=== PATIENT | female | born 1940 | race Caucasian/White ===

== ENCOUNTER → 2016-04-08 | Outpatient (CLI) | payer BC ==
[~2016-04-08] MED LIST: ACET-1311 PO; AMLO-114 PO; ATEN-175 PO; CLXOPS3 OPL; DONE1TAB26 PO; DONE5TAB14 PO; DTRSR/2 PO; ESCI10TA17 PO; GLC500 PO; HYDR25TA4 PO; INSDGIPEN SC; IPRASOL4 INH; LOSA1TAB PO; LVQ750 PO; MULT-506 PO; OXYC1CAP5 PO; SIMV10TA2 PO; TOLT4CAP PO; VITA400C28 PO
[2016-04-08 10:15] LABS: ESTIMATED AVERAGE GLUCOSE 163 mg/dl; HA1C FLAG Normal (Normal)
== END ==
LOC: C.LABCC 09:40
PROVIDERS: ATTEND Internal Medicine
DX: E11.9 Type 2 diabetes mellitus without complications (principal)

== ENCOUNTER 2016-09-11 21:49 | Inpatient (IN) | payer BC, OTHER ==
[~2016-09-11] VITALS: Ht 172.7 cm; Wt 90.3 kg
[~2016-09-11 21:49] MED LIST changes: -CLXOPS3 OPL; -DONE1TAB26 PO; -DTRSR/2 PO; -GLC500 PO; -INSDGIPEN SC; -IPRASOL4 INH; -LVQ750 PO; -OXYC1CAP5 PO
[2016-09-11] MEDS ORDERED: IPRASOL4 INH (21:59)
[2016-09-11] MEDS ORDERED: OXYC1CAP5 PO (22:04)
[2016-09-11] MEDS ORDERED: DONE1TAB26 PO (22:08)
[2016-09-11] MEDS ORDERED: DTRSR/2 PO (22:11)
[2016-09-11] MEDS ORDERED: ALBUT/IPRATROP 3MG/0.5MG NEB 3 ML VIAL INH STA (22:17)
[2016-09-11] MEDS ORDERED: OPTIRAY 320 IV PRN (22:30)
[2016-09-11 22:37] LABS: ISTAT CREATININE 1.2 mg/dl (0.6-1.3); ISTAT HEMOGLOBIN 11.6 g/dl (12.0-16.0); ISTAT IONIZED CALCIUM 1.16 mmol/l (1.12-1.32)
[2016-09-11 22:41] LABS: HEMATOCRIT 35.9 % (37-47); MEAN CELL VOLUME 92.5 fL (80-100); MEAN CORPUSCULAR HEMOGLOBIN 30.2 pg (25-34); MEAN CORPUSCULAR HGB CONC 32.6 g/dl (32-36); MEAN PLATELET VOLUME 11.3 fL (7.4-10.4); PLATELET COUNT 175 K/uL (130-400); RED BLOOD COUNT 3.88 M/uL (4.2-5.4); WHITE BLOOD COUNT 15.94 K/uL (4.8-10.8)
--- NOTE | 2016-09-11 22:56 | DIAGNOSTIC IMAGING REPORT ---
CHEST ONE VIEW PORTABLE CLINICAL HISTORY: Shortness of breath. Sepsis COMPARISON STUDY: Chest radiograph February 08, 2013. FINDINGS: There is no pneumothorax or pleural effusion. There is mild left basilar opacity. There is no evidence of pulmonary edema. Moderate enlargement of the cardiac silhouette is noted. IMPRESSION: 1. Mild left basilar opacities which favor atelectasis. 2. Mild enlargement of the cardiac silhouette without evidence of pulmonary edema. Electronically signed by: Vinay Mosher M.D. 09/11/2016 10:55 PM Dictated Date/Time: 09/11/2016 10:53 PM
[2016-09-11 23:03] LABS: ALT/SGPT 29 U/L (12-78); AST/SGOT 31 U/L (15-37); BLOOD UREA NITROGEN 39 mg/dl (7-18); BUN/CREATININE RATIO 25.9 (10-20); CALCIUM 8.6 mg/dl (8.5-10.1); CARBON DIOXIDE 27 mmol/L (21-32); CHLORIDE 104 mmol/L (98-107); MAGNESIUM 2.4 mg/dl (1.8-2.4); POTASSIUM 4.4 mmol/L (3.5-5.1); SODIUM 139 mmol/L (136-145)
[2016-09-11 23:04] LABS: GLUCOSE 463 mg/dl (70-99)
[2016-09-11 23:07] LABS: ALB/GLOB RATIO 0.8 (0.9-2); ALKALINE PHOSPHATASE 102 U/L (45-117)
--- NOTE | 2016-09-11 23:10 | DIAGNOSTIC IMAGING REPORT ---
CT ANGIOGRAPHY OF THE CHEST, PULMONARY EMBOLUS PROTOCOL CLINICAL HISTORY: Shortness of breath. Hypoxia. Recent leg fracture. History of deep venous thrombus. COMPARISON STUDY: Chest radiograph February 08, 2013 and September 11, 2016. TECHNIQUE: Following IV administration of 116 mL of Optiray-320, helical axial images of the chest were obtained utilizing the pulmonary embolus protocol. Maximal intensity projections and sagittal and coronal reformats were viewed on an independent 3D workstation. IV contrast was administered without complication. CT DOSE: 512.36 mGy.cm FINDINGS: This exam is significantly compromised by respiratory motion. There are no central pulmonary emboli. The lobar, segmental and subsegmental pulmonary arteries are inadequately assessed due to respiratory motion. The heart is mildly enlarged. There is extensive coronary artery calcification. Note is made of an aberrant right subclavian artery. There is mild aneurysmal dilatation of the proximal right subclavian artery, measuring 2.3 cm. There is extensive atherosclerotic plaque within this vessel as well as the thoracic aorta. There is no thoracic aortic dissection. There is no pericardial effusion. No enlarged thoracic lymph nodes are present. Central airways are patent. Bilateral lower lobe subpleural opacities favor atelectasis. There is no consolidation to suggest pneumonia. The lungs are suboptimally assessed due to respiratory motion. Bony thorax is unremarkable. There is probable fatty infiltration of the liver. IMPRESSION: 1. Study significantly compromised by respiratory motion artifact. No central pulmonary emboli. The lobar, segmental and subsegmental pulmonary arteries are suboptimally assessed due to respiratory motion. 2. Mild cardiomegaly and extensive coronary artery calcification. 3. 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 No rupture. No dissection of the thoracic aorta. 4. Bilateral lower lobe opacities which favor atelectasis. 5. Fatty liver. Electronically signed by: Vinay Mosher M.D. 09/11/2016 11:09 PM Dictated Date/Time: 09/11/2016 11:00 PM
[2016-09-11] MEDS ORDERED: LEVAQUIN 750MG / 150ML D5W IV STA (23:16)
[2016-09-11] MEDS ORDERED: CEFTRIAXONE SOD INJ 1 GM ADDVIAL IV STA (23:16)
[2016-09-11] MEDS ORDERED: NovoLIN-R INSULIN PER UNIT CHARGE IV STA (23:16)
[2016-09-11] MEDS ORDERED: SODIUM CHLORIDE 0.9% 1000ML 1,000 ML IV STA ×2 (23:16)
[2016-09-11 23:25] LABS: BASO % 0.3 %; BASO ABS # 0.05 K/uL (0-0.2); COMPLETE YES; EOS % 0.9 %; IG% 0.8 %; LYMPH % 37.7 %; LYMPH ABS # 6.01 K/uL (1.2-3.4); MONO % 6.9 %; NEUT % 53.4 %
[2016-09-11 23:27] LABS: BETA-HYDROXYBUTYRATE 1.26 mg/dL (0.2-2.81); THYROID STIMULATING HORMONE 0.754 uIu/ml (0.300-4.500)
[2016-09-11 23:29] LABS: VEN BLD GAS O2 SATURATION 90.5 %; VEN BLOOD GAS BASE EXCESS -3.5 mmol/L
[2016-09-11 23:36] LABS: INR 1.1 (0.9-1.1); PROTHROMBIN TIME (PATIENT) 11.3 SECONDS (9.0-12.0)
--- NOTE | 2016-09-11 23:40 | EMERGENCY ROOM VISIT NOTE ---
ED Visit Note First contact with patient: 22:09 Pt seen and examined at bedside. Pt with dementia, unable to provide adequate history. Pt receiving breathing tx currently and resting. VS stable. Pt being admitted.
[2016-09-12] VITALS (7 sets, daily range): BP systolic 120–154; BP diastolic 67–82; PULSE 61–70; TEMP 36.6–37.3; O2SAT 91–95; Ht 172.7 cm; Wt 90.3 kg
[2016-09-12 01:56] LABS: URINE APPEARANCE CLEAR (CLEAR); URINE BILIRUBIN NEG (NEG); URINE COLOR YELLOW; URINE NITRITE POS (NEG); URINE SPECIFIC GRAVITY > 1.045 (1.000-1.030); UROBILINOGEN NEG (NEG); ZZURINE CULT IF INDIC CATH YES
[2016-09-12 01:57] LABS: MANUAL MICROSCOPIC REQUIRED? NO; REVIEW REQ? NO
--- NOTE | 2016-09-12 02:43 | EMERGENCY ROOM VISIT NOTE ---
History First contact with patient: 22:09 Chief Complaint: SHORTNESS OF BREATH Stated Complaint: SOB Nursing Triage Summary: See triage report History of Present Illness The patient is a 75 year old female who presents to the Emergency Room with complaints of shortness of breath with cough and fatigue for the past day who is currently at [facility] for rehabilitation for a left lower leg fracture. This happened 4 days ago. Patient does continue to smoke. Patient stats today at the [facility] were in the mid 80s and was sent in for further evaluation and treatment. Her blood sugar was 500 and they gave insulin. They did not check her potassium though. Patient denies chest pain, abdominal pain, numbness , tingling, headache, vomiting, diarrhea. Review of Systems See HPI for pertinent positives & negatives. A total of 10 systems reviewed and were otherwise negative. Past Medical/Surgical History Medical Problems: (1) Amputated above knee (2) Diabetes mellitus (3) History of - hypertension (4) Pneumonia Chronic kidney disease Social History Smoking Status: Current Every Day Smoker Drug Use: none Marital Status: Housing Status: [facility] Occupation Status: retired Current/Historical Medications Scheduled Amlodipine (Norvasc), 10 MG PO DAILY Atenolol (Tenormin), 100 MG PO DAILY Donepezil Hydrochloride (Donepezil Hcl), 10 MG PO HS Escitalopram (Lexapro), 10 MG PO DAILY Losartan Potassium (Cozaar), 25 MG PO BID Multivitamin (Multivitamin), 1 TAB PO DAILY Simvastatin (Zocor), 10 MG PO HS Tolterodine Tartrate (Detrol LA), 6 MG PO DAILY Scheduled PRN Acetaminophen (Tylenol), 650 MG PO Q6H PRN for Pain or Fever Ipratropium-Albuterol (Duoneb), 1 TREATMENT INH Q4H PRN for Wheezing Oxycodone Hcl (Oxycodone Hcl), 5 MG PO Q4H PRN for Pain Allergies Coded Allergies: Chicken Allergy (Unverified Allergy, Unknown, ., 09/11/16) Sheep-derived Products (Unverified Adverse Reaction, Unknown, WOOL, ) Physical Exam Vital Signs Date Time Temp Pulse Resp B/P (MAP) Pulse Ox O2 Delivery O2 Flow Rate FiO2 09/12/16 03:16 37.6 09/12/16 02:49 65 21 94 09/12/16 02:34 63 19 93 09/12/16 02:19 64 17 94 09/12/16 02:12 65 09/12/16 02:04 64 15 93 09/12/16 01:49 65 23 93 09/12/16 01:34 66 20 94 09/12/16 01:19 65 13 94 09/12/16 01:04 66 16 92 09/12/16 01:01 130/64 09/12/16 00:49 66 17 92 09/12/16 00:34 67 14 93 09/12/16 00:31 123/71 09/12/16 00:19 66 15 94 09/12/16 00:04 64 16 94 09/12/16 00:01 127/73 09/11/16 23:49 66 16 98 09/11/16 23:34 65 26 98 09/11/16 23:32 124/87 09/11/16 23:19 65 24 98 09/11/16 23:04 64 25 99 09/11/16 23:01 125/78 09/11/16 22:49 66 23 95 09/11/16 22:34 62 31 95 09/11/16 22:31 145/70 09/11/16 22:19 63 20 94 Nasal Cannula 3.0 09/11/16 22:13 136/65 09/11/16 22:09 65 09/11/16 22:07 94 Nasal Cannula 2.0 09/11/16 22:03 3.0 09/11/16 21:58 140/64 09/11/16 21:57 91 Nasal Cannula 09/11/16 21:57 37.0 64 22 140/64 91 Room Air Physical Exam VITALS: Vitals are noted on the nurse's note and reviewed by myself. Vital signs hypoxic. GENERAL: Pleasant female answering questions appropriately, in no acute distress , nondiaphoretic, well-developed well-nourished. SKIN: The skin was without rashes, erythema, edema, or bruising. There is no tenting of the skin. Capillary reflex less than 2 seconds. HEAD: Normocephalic atraumatic. EARS: External auditory canals clear, tympanic membranes pearly esteban without erythema or effusion bilaterally. EYES: Pupils equal round and reactive to light and accommodation. Conjunctivae without injection, sclerae without icterus. Extraocular movements intact. NOSE: Patent, turbinates without inflammation or discharge. MOUTH: Mucous membranes mildly dry. Pharynx without erythema or exudate. Uvula midline. Airway patent. Tongue does not deviate. NECK: Supple without nuchal rigidity. No lymphadenopathy. No thyromegaly. Cervical spine is nontender. No JVD. HEART: Regular rate and rhythm 2/6 murmur LUNGS: Mild diffuse end expiratory wheezes, without rales or rhonchi. No dullness to percussion. No retractions or accessory muscle use. ABDOMEN: Positive bowel sounds x 4. Normal tympanic percussion. Soft, nontender, without masses or organomegaly. Whitlock sign negative. No guarding or rebound tenderness. MUSCULOSKELETAL: No muscle atrophy, erythema, or edema noted. Right leg amputee. Left leg and splint. Pedal pulses +2 present NEURO: Patient was alert and oriented to person place Normal sensation to light and sharp touch. No focal neurological deficits. Medical Decision & Procedures Laboratory Results 09/11/16 21:33 Red Blood Count 3.88, Mean Corpuscular Volume 92.5, Mean Corpuscular Hemoglobin 30.2, Mean Corpuscular Hemoglobin Concent 32.6, Mean Platelet Volume 11.3, Neutrophils (%) (Auto) 53.4, Lymphocytes (%) (Auto) 37.7, Monocytes (%) (Auto) 6.9, Eosinophils (%) (Auto) 0.9, Basophils (%) (Auto) 0.3, Neutrophils # (Auto) 8.52, Lymphocytes # (Auto) 6.01, Monocytes # (Auto) 1.10, Eosinophils # (Auto) 0.14, Basophils # (Auto) 0.05 09/11/16 21:33 Test 09/11/16 21:33 09/11/16 22:22 09/11/16 22:52 09/11/16 23:07 White Blood Count 15.94 K/uL (4.8-10.8) Red Blood Count 3.88 M/uL (4.2-5.4) Hemoglobin 11.7 g/dL (12.0-16.0) Hematocrit 35.9 % (37-47) Mean Corpuscular Volume 92.5 fL (80-100) Mean Corpuscular Hemoglobin 30.2 pg (25-34) Mean Corpuscular Hemoglobin Concent 32.6 g/dl (32-36) Platelet Count 175 K/uL (130-400) Mean Platelet Volume 11.3 fL (7.4-10.4) Neutrophils (%) (Auto) 53.4 % Lymphocytes (%) (Auto) 37.7 % Monocytes (%) (Auto) 6.9 % Eosinophils (%) (Auto) 0.9 % Basophils (%) (Auto) 0.3 % Neutrophils # (Auto) 8.52 K/uL (1.4-6.5) Lymphocytes # (Auto) 6.01 K/uL (1.2-3.4) Monocytes # (Auto) 1.10 K/uL (0.11-0.59) Eosinophils # (Auto) 0.14 K/uL (0-0.5) Basophils # (Auto) 0.05 K/uL (0-0.2) RDW Standard Deviation 44.7 fL (36.4-46.3) RDW Coefficient of Variation 13.5 % (11.5-14.5) Immature Granulocyte % (Auto) 0.8 % Immature Granulocyte # (Auto) 0.12 K/uL (0.00-0.02) Red Blood Cell Morphology Unremarkable Est Creatinine Clear Calc Drug Dose 39.7 ml/min Estimated GFR () 39.1 Estimated GFR (Non- 33.7 BUN/Creatinine Ratio 25.9 (10-20) Calcium Level 8.6 mg/dl (8.5-10.1) Magnesium Level 2.4 mg/dl (1.8-2.4) Total Bilirubin 0.8 mg/dl (0.2-1) Aspartate Amino Transf (AST/SGOT) 31 U/L (15-37) Alanine Aminotransferase (ALT/SGPT) 29 U/L (12-78) Alkaline Phosphatase 102 U/L (45-117) Troponin I < 0.015 ng/ml (0-0.045) Total Protein 6.3 gm/dl (6.4-8.2) Albumin 2.8 gm/dl (3.4-5.0) Globulin 3.5 gm/dl (2.5-4.0) Albumin/Globulin Ratio 0.8 (0.9-2) Beta-Hydroxybutyric Acid 1.26 mg/dL (0.2-2.81) Thyroid Stimulating Hormone (TSH) 0.754 uIu/ml (0.300-4.500) Bedside Hemoglobin 11.6 g/dl (12.0-16.0) Bedside Hematocrit 34 % (37-47) Bedside Sodium 138 mEq/L (135-144) Bedside Potassium 4.5 mEq/L (3.3-5.0) Bedside Chloride 100 mEq/L (101-112) Bedside Total CO2 27 mEq/l (24-31) Anion Gap 16.0 mmol/L (16-25) Bedside Blood Urea Nitrogen 36 mg/dl (7-18) Bedside Creatinine 1.2 mg/dl (0.6-1.3) Bedside Glucose (other) 485 mg/dl (70-99) Bedside Ionized Calcium (Travis) 1.16 mmol/l (1.12-1.32) Prothrombin Time 11.3 SECONDS (9.0-12.0) Prothromb Time International Ratio 1.1 (0.9-1.1) Activated Partial Thromboplast Time 26.4 SECONDS (21.0-31.0) Partial Thromboplastin Ratio 1.0 Venous Blood pH 7.33 (7.36-7.41) Venous Blood Partial Pressure CO2 43 mmHg (38.0-50.0) Venous Blood Partial Pressure O2 63 mmHg Venous Blood HCO3 22 mmol/L Venous Blood Oxygen Saturation 90.5 % Venous Blood Base Excess -3.5 mmol/L Bedside Lactic Acid Venous 1.90 mmol/L (0.90-1.70) Test 09/12/16 00:31 09/12/16 01:30 Bedside Glucose 249 mg/dl (70-90) Urine Color YELLOW Urine Appearance CLEAR (CLEAR) Urine pH 5.0 (4.5-7.5) Urine Specific [place] > 1.045 (1.000-1.030) Urine Protein 1+ (NEG) Urine Glucose (UA) 1+ (NEG) Urine Ketones NEG (NEG) Urine Occult Blood 2+ (NEG) Urine Nitrite POS (NEG) Urine Bilirubin NEG (NEG) Urine Urobilinogen NEG (NEG) Urine Leukocyte Esterase TRACE (NEG) Urine WBC (Auto) 10-30 /hpf (0-5) Urine RBC (Auto) 0-4 /hpf (0-4) Urine Hyaline Casts (Auto) 0 /lpf (0-5) Urine Epithelial Cells (Auto) 5-10 /lpf (0-5) Urine Bacteria (Auto) 3+ (NEG) Medications Administered Medications (Trade) Dose Ordered Sig/Rodney Route Start Time Stop Time Status Last Admin Dose Admin Albuterol/ Ipratropium (Duoneb) 3 ml NOW STAT INH 09/11/16 22:17 09/11/16 22:18 DC 09/11/16 22:52 3 ML Ceftriaxone Sodium (Rocephin Inj) 1 gm NOW STAT IV 09/11/16 23:16 09/11/16 23:20 DC 09/11/16 23:57 1 GM Levofloxacin (Levaquin / D5W) 750 mg NOW STAT IV 09/11/16 23:16 09/11/16 23:20 DC 09/12/16 00:48 750 MG Insulin Human Regular (novoLIN-R U-100 PER UNIT) 10 units NOW STAT IV 09/11/16 23:16 09/11/16 23:20 DC 09/11/16 23:57 10 UNITS Sodium Chloride 1,000 ml @ 999 mls/hr Q1H1M STAT IV 09/11/16 23:16 09/12/16 00:16 DC 09/11/16 23:57 999 MLS/HR Sodium Chloride 1,000 ml @ 100 mls/hr Q10H STAT IV 09/11/16 23:16 09/12/16 09:15 09/11/16 23:58 100 MLS/HR ED Course Prior records/ancillary studies reviewed. Triage Nursing notes reviewed. Additional history obtained from the family. The patient's history was concerning for respiratory difficulties. Differential diagnosis: Etiologies such as infections, reactive airway disease, pneumonia, pneumothorax , COPD, CHF, cardiac ischemia, pulmonary embolism, musculoskeletal, gastrointestinal, as well as others were entertained. Physical examination: As above. ER treatment provided: Nebulizer, Rocephin, Levaquin, IV fluids, insulin On reassessment the patient felt better. Diagnostic interpretation by me: The electrocardiogram was normal sinus, normal intervals, T wave inversions in the anterolateral leads, rate 63. EKG compared to prior EKG with new T-wave inversions in the anterolateral leads interpreted by myself. Impression normal sinus with T-wave inversions in the anterolateral leads. The labs revealed leukocytosis, urine concerning for infection and sent for culture. Elevated lactic acid Imaging studies: Chest x-ray as above. CT ANGIOGRAPHY OF THE CHEST, PULMONARY EMBOLUS PROTOCOL CLINICAL HISTORY: Shortness of breath. Hypoxia. Recent leg fracture. History of deep venous thrombus. COMPARISON STUDY: Chest radiograph February 08, 2013 and September 11, 2016. TECHNIQUE: Following IV administration of 116 mL of Optiray-320, helical axial images of the chest were obtained utilizing the pulmonary embolus protocol. Maximal intensity projections and sagittal and coronal reformats were viewed on an independent 3D workstation. IV contrast was administered without complication. CT DOSE: 512.36 mGy.cm FINDINGS: This exam is significantly compromised by respiratory motion. There are no central pulmonary emboli. The lobar, segmental and subsegmental pulmonary arteries are inadequately assessed due to respiratory motion. The heart is mildly enlarged. There is extensive coronary artery calcification. Note is made of an aberrant right subclavian artery. There is mild aneurysmal dilatation of the proximal right subclavian artery, measuring 2.3 cm. There is extensive atherosclerotic plaque within this vessel as well as the thoracic aorta. There is no thoracic aortic dissection. There is no pericardial effusion. No enlarged thoracic lymph nodes are present. Central airways are patent. Bilateral lower lobe subpleural opacities favor atelectasis. There is no consolidation to suggest pneumonia. The lungs are suboptimally assessed due to respiratory motion. Bony thorax is unremarkable. There is probable fatty infiltration of the liver. IMPRESSION: 1. Study significantly compromised by respiratory motion artifact. No central pulmonary emboli. The lobar, segmental and subsegmental pulmonary arteries are suboptimally assessed due to respiratory motion. 2. Mild cardiomegaly and extensive coronary artery calcification. 3. 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 No rupture. No dissection of the thoracic aorta. 4. Bilateral lower lobe opacities which favor atelectasis. 5. Fatty liver. Electronically signed by: Vinay Mosher M.D. Consultation: A consultation was placed with Dr. Martínez hospitalist. The case was discussed and diagnostics were reviewed. The patient was evaluated in the ER for further treatment. This appears to be consistent with pneumonia with UTI with hypoxemia. Patient also has hyperglycemia with a normal gap. She was hydrated as above. Antibiotics were given. Blood glucose did improve. Family is agreeable to treatment plan of admission. Medicine was consulted. By the evaluation outlined above emergent etiologies such as CHF, cardiac ischemia, pulmonary embolism, pneumothorax, musculoskeletal, as well as others were deemed relatively unlikely. The pt informed about the findings as listed above. All questions were answered and pleased with the treatment. Case reviewed with my attending Medical Decision As above I attest that I have personally reviewed the patient's medications. Impression Primary Impression: Pneumonia Additional Impressions: UTI (urinary tract infection) Hypoxemia Hyperglycemia Departure Information Dispostion Being Evaluated By [facility] Patient Instructions My [facility] Problem Qualifiers Primary Impression: Pneumonia Pneumonia type: due to unspecified organism Laterality: unspecified laterality Lung location: unspecified part of lung Qualified Codes: J18.9 - Pneumonia, unspecified organism Additional Impressions: UTI (urinary tract infection) Urinary tract infection type: acute cystitis Hematuria presence: without hematuria Qualified Codes: N30.00 - Acute cystitis without hematuria
[2016-09-12] MEDS ORDERED: ONDANSETRON INJ 2 MG/ML 2 ML VIAL IV PRN (04:30)
[2016-09-12] MEDS ORDERED: ALUMINUM/MAGNESIUM/SIMETH (MAALOX MAX) 30 ML UDC PO PRN (04:30)
[2016-09-12] MEDS ORDERED: ACETAMINOPHEN 325 MG TAB PO PRN (04:30)
[2016-09-12] MEDS ORDERED: ALBUT/IPRATROP 3MG/0.5MG NEB 3 ML VIAL INH PRN (04:30)
[2016-09-12] MEDS: SODIUM CHLORIDE 0.9% 1000ML 1,000 ML IV SCH (05:19)
[2016-09-12 05:33] LABS: HEMATOCRIT 34.8 % (37-47); MEAN CELL VOLUME 93.3 fL (80-100); MEAN CORPUSCULAR HEMOGLOBIN 30.6 pg (25-34); MEAN CORPUSCULAR HGB CONC 32.8 g/dl (32-36); MEAN PLATELET VOLUME 10.5 fL (7.4-10.4); PLATELET COUNT 154 K/uL (130-400); RED BLOOD COUNT 3.73 M/uL (4.2-5.4); WHITE BLOOD COUNT 14.89 K/uL (4.8-10.8)
[2016-09-12 05:55] LABS: BUN/CREATININE RATIO 29.5 (10-20); CALCIUM 8.1 mg/dl (8.5-10.1); CREATININE 1.1 mg/dl (0.60-1.20); POTASSIUM 4.5 mmol/L (3.5-5.1)
--- NOTE | 2016-09-12 06:52 | History and Physical ---
History & Physical Date & Time of Service: Sep 12, 2016 at 06:44 Chief Complaint: Pneumonia Primary Care Physician: Iva Law History of Present Illness Source: patient 75-year-old female with past medical history of diabetes, hypertension, status post left lower leg fracture currently resident of [facility] presented to the ER with complaints of shortness of breath with cough and fatigue which started about a day ago. The patient is a current smoker and her sats had dropped to mid 80s while at [facility]. She was also found to be hyperglycemic with a blood sugar over 500. She denies any chest pain but complains of chills. Denies any fever. Denies any palpitations, numbness or tingling, motor weakness or diarrhea. Past Medical/Surgical History Medical Problems: (1) Amputated above knee Status: Resolved (2) Diabetes mellitus Status: Chronic (3) History of - hypertension Status: Chronic Social History Smoking Status: Current Every Day Smoker Drug Use: none Marital Status: Housing status: long term Occupational Status: retired Immunizations History of Influenza Vaccine: No History of Tetanus Vaccine?: Unknown History of Pneumococcal: No History of Hepatitis B Vaccine: Unknown Multi-Drug Resistant Organisms History of MDRO: Yes Type of MDRO: MRSA Allergies Coded Allergies: Chicken Allergy (Unverified Allergy, Unknown, ., 09/11/16) Sheep-derived Products (Unverified Adverse Reaction, Unknown, WOOL, ) Home Medications Scheduled Amlodipine (Norvasc), 10 MG PO DAILY Atenolol (Tenormin), 100 MG PO DAILY Ciprofloxacin HCl (Ciprofloxacin HCl), 1 DROPS OPL Q4HWA Donepezil Hydrochloride (Donepezil Hcl), 10 MG PO HS Escitalopram (Lexapro), 10 MG PO DAILY Insulin Glargine (Lantus Solostar), 15 UNITS SC DAILY Levofloxacin (Levofloxacin), 750 MG PO DAILY Losartan Potassium (Cozaar), 25 MG PO BID Metformin HCl (Metformin HCl), 500 MG PO BID Multivitamin (Multivitamin), 1 TAB PO DAILY Simvastatin (Zocor), 10 MG PO HS Tolterodine Tartrate (Detrol LA), 6 MG PO DAILY Scheduled PRN Acetaminophen (Tylenol), 650 MG PO Q6H PRN for Pain or Fever Ipratropium-Albuterol (Duoneb), 1 TREATMENT INH Q4H PRN for Wheezing Oxycodone Hcl (Oxycodone Hcl), 5 MG PO Q4H PRN for Pain Review of Systems Constitutional: + chills, + sweats, No fever Eyes: No worsening of vision ENT: No hearing loss Respiratory: + cough Cardiovascular: No chest pain Abdomen: No pain, No nausea Musculoskeletal: + joint pain (left lower extremity pain) Genitourinary - Female: No dysuria, No urinary frequency, No urinary urgency Neurologic: No memory loss Psychiatric: No depression symptoms Endocrine: No fatigue Physical Exam Vital Signs Date Time Temp Pulse Resp B/P (MAP) Pulse Ox O2 Delivery O2 Flow Rate FiO2 09/12/16 04:44 36.6 65 22 154/82 95 Nasal Cannula 4.0 09/12/16 04:04 64 28 94 09/12/16 04:01 143/74 09/12/16 03:54 64 25 94 09/12/16 03:44 63 15 93 09/12/16 03:39 64 22 94 09/12/16 03:31 138/68 09/12/16 03:24 64 21 94 09/12/16 03:16 37.6 09/12/16 03:15 146/72 09/12/16 03:09 65 14 94 09/12/16 02:54 65 16 93 09/12/16 02:49 65 21 94 09/12/16 02:34 63 19 93 09/12/16 02:19 64 17 94 09/12/16 02:12 65 09/12/16 02:04 64 15 93 09/12/16 01:49 65 23 93 09/12/16 01:34 66 20 94 09/12/16 01:19 65 13 94 09/12/16 01:04 66 16 92 09/12/16 01:01 130/64 09/12/16 00:49 66 17 92 09/12/16 00:34 67 14 93 09/12/16 00:31 123/71 09/12/16 00:19 66 15 94 09/12/16 00:04 64 16 94 09/12/16 00:01 127/73 09/11/16 23:49 66 16 98 09/11/16 23:34 65 26 98 09/11/16 23:32 124/87 09/11/16 23:19 65 24 98 09/11/16 23:04 64 25 99 09/11/16 23:01 125/78 09/11/16 22:49 66 23 95 09/11/16 22:34 62 31 95 09/11/16 22:31 145/70 09/11/16 22:19 63 20 94 Nasal Cannula 3.0 09/11/16 22:13 136/65 09/11/16 22:09 65 09/11/16 22:07 94 Nasal Cannula 2.0 09/11/16 22:03 3.0 09/11/16 21:58 140/64 09/11/16 21:57 91 Nasal Cannula 09/11/16 21:57 37.0 64 22 140/64 91 Room Air General Appearance: WD/WN Eyes: normal inspection ENT: normal ENT inspection, hearing grossly normal Neck: supple Respiratory/Chest: chest non-tender, + decreased breath sounds Cardiovascular: regular rate, rhythm Abdomen/GI: normal bowel sounds, non tender, soft Extremities/Musculoskelatal: normal inspection, no calf tenderness, no pedal edema Neurologic/Psych: alert, normal mood/affect, oriented x 3 Diagnostics Laboratory Results Results Past 24 Hours Test 09/11/16 21:33 09/11/16 22:19 09/11/16 22:22 09/11/16 22:52 Range/Units White Blood Count 15.94 4.8-10.8 K/uL Red Blood Count 3.88 4.2-5.4 M/uL Hemoglobin 11.7 12.0-16.0 g/dL Hematocrit 35.9 37-47 % Mean Corpuscular Volume 92.5 80-100 fL Mean Corpuscular Hemoglobin 30.2 25-34 pg Mean Corpuscular Hemoglobin Concent 32.6 32-36 g/dl Platelet Count 175 130-400 K/uL Mean Platelet Volume 11.3 7.4-10.4 fL Neutrophils (%) (Auto) 53.4 % Lymphocytes (%) (Auto) 37.7 % Monocytes (%) (Auto) 6.9 % Eosinophils (%) (Auto) 0.9 % Basophils (%) (Auto) 0.3 % Neutrophils # (Auto) 8.52 1.4-6.5 K/uL Lymphocytes # (Auto) 6.01 1.2-3.4 K/uL Monocytes # (Auto) 1.10 0.11-0.59 K/uL Eosinophils # (Auto) 0.14 0-0.5 K/uL Basophils # (Auto) 0.05 0-0.2 K/uL RDW Standard Deviation 44.7 36.4-46.3 fL RDW Coefficient of Variation 13.5 11.5-14.5 % Immature Granulocyte % (Auto) 0.8 % Immature Granulocyte # (Auto) 0.12 0.00-0.02 K/uL Red Blood Cell Morphology Unremarkable Sodium Level 139 136-145 mmol/L Potassium Level 4.4 3.5-5.1 mmol/L Chloride Level 104 98-107 mmol/L Carbon Dioxide Level 27 21-32 mmol/L Anion Gap 8.0 16.0 16-25 mmol/L Blood Urea Nitrogen 39 7-18 mg/dl Creatinine 1.50 0.60-1.20 mg/dl Est Creatinine Clear Calc Drug Dose 39.7 ml/min Estimated GFR () 39.1 Estimated GFR (Non- 33.7 BUN/Creatinine Ratio 25.9 10-20 Random Glucose 463 70-99 mg/dl Calcium Level 8.6 8.5-10.1 mg/dl Magnesium Level 2.4 1.8-2.4 mg/dl Total Bilirubin 0.8 0.2-1 mg/dl Aspartate Amino Transf (AST/SGOT) 31 15-37 U/L Alanine Aminotransferase (ALT/SGPT) 29 12-78 U/L Alkaline Phosphatase 102 45-117 U/L Troponin I < 0.015 0-0.045 ng/ml Total Protein 6.3 6.4-8.2 gm/dl Albumin 2.8 3.4-5.0 gm/dl Globulin 3.5 2.5-4.0 gm/dl Albumin/Globulin Ratio 0.8 0.9-2 Beta-Hydroxybutyric Acid 1.26 0.2-2.81 mg/dL Thyroid Stimulating Hormone (TSH) 0.754 0.300-4.500 uIu/ml Bedside Glucose 421 70-90 mg/dl Bedside Hemoglobin 11.6 12.0-16.0 g/dl Bedside Hematocrit 34 37-47 % Bedside Sodium 138 135-144 mEq/L Bedside Potassium 4.5 3.3-5.0 mEq/L Bedside Chloride 100 101-112 mEq/L Bedside Total CO2 27 24-31 mEq/l Bedside Blood Urea Nitrogen 36 7-18 mg/dl Bedside Creatinine 1.2 0.6-1.3 mg/dl Bedside Glucose (other) 485 70-99 mg/dl Bedside Ionized Calcium (Travis) 1.16 1.12-1.32 mmol/l Prothrombin Time 11.3 9.0-12.0 SECONDS Prothromb Time International Ratio 1.1 0.9-1.1 Activated Partial Thromboplast Time 26.4 21.0-31.0 SECONDS Partial Thromboplastin Ratio 1.0 Venous Blood pH 7.33 7.36-7.41 Venous Blood Partial Pressure CO2 43 38.0-50.0 mmHg Venous Blood Partial Pressure O2 63 mmHg Venous Blood HCO3 22 mmol/L Venous Blood Oxygen Saturation 90.5 % Venous Blood Base Excess -3.5 mmol/L Test 09/11/16 23:07 09/12/16 00:31 09/12/16 01:30 09/12/16 03:58 Range/Units Bedside Lactic Acid Venous 1.90 0.90-1.70 mmol/L Bedside Glucose 249 196 70-90 mg/dl Urine Color YELLOW Urine Appearance CLEAR CLEAR Urine pH 5.0 4.5-7.5 Urine Specific [place] > 1.045 1.000-1.030 Urine Protein 1+ NEG Urine Glucose (UA) 1+ NEG Urine Ketones NEG NEG Urine Occult Blood 2+ NEG Urine Nitrite POS NEG Urine Bilirubin NEG NEG Urine Urobilinogen NEG NEG Urine Leukocyte Esterase TRACE NEG Urine WBC (Auto) 10-30 0-5 /hpf Urine RBC (Auto) 0-4 0-4 /hpf Urine Hyaline Casts (Auto) 0 0-5 /lpf Urine Epithelial Cells (Auto) 5-10 0-5 /lpf Urine Bacteria (Auto) 3+ NEG Test 09/12/16 05:20 Range/Units White Blood Count 14.89 4.8-10.8 K/uL Red Blood Count 3.73 4.2-5.4 M/uL Hemoglobin 11.4 12.0-16.0 g/dL Hematocrit 34.8 37-47 % Mean Corpuscular Volume 93.3 80-100 fL Mean Corpuscular Hemoglobin 30.6 25-34 pg Mean Corpuscular Hemoglobin Concent 32.8 32-36 g/dl RDW Standard Deviation 45.4 36.4-46.3 fL RDW Coefficient of Variation 13.3 11.5-14.5 % Platelet Count 154 130-400 K/uL Mean Platelet Volume 10.5 7.4-10.4 fL Sodium Level 143 136-145 mmol/L Potassium Level 4.5 3.5-5.1 mmol/L Chloride Level 110 98-107 mmol/L Carbon Dioxide Level 29 21-32 mmol/L Anion Gap 4.0 3-11 mmol/L Blood Urea Nitrogen 32 7-18 mg/dl Creatinine 1.10 0.60-1.20 mg/dl Est Creatinine Clear Calc Drug Dose 51.7 ml/min Estimated GFR () 56.9 Estimated GFR (Non- 49.1 BUN/Creatinine Ratio 29.5 10-20 Random Glucose 216 70-99 mg/dl Calcium Level 8.1 8.5-10.1 mg/dl Microbiology Results 09/11/16 Blood Culture, Received Pending 09/11/16 Blood Culture, Received Pending 09/12/16 Urine Culture, Received Pending Diagnostic Radiology CHEST ONE VIEW PORTABLE CLINICAL HISTORY: Shortness of breath. Sepsis COMPARISON STUDY: Chest radiograph February 08, 2013. FINDINGS: There is no pneumothorax or pleural effusion. There is mild left basilar opacity. There is no evidence of pulmonary edema. Moderate enlargement of the cardiac silhouette is noted. IMPRESSION: 1. Mild left basilar opacities which favor atelectasis. 2. Mild enlargement of the cardiac silhouette without evidence of pulmonary edema. Electronically signed by: Vinay Mosher M.D. 09/11/2016 10:55 PM Dictated Date/Time: 09/11/2016 10:[address] ANGIOGRAPHY OF THE CHEST, PULMONARY EMBOLUS PROTOCOL CLINICAL HISTORY: Shortness of breath. Hypoxia. Recent leg fracture. History of deep venous thrombus. COMPARISON STUDY: Chest radiograph February 08, 2013 and September 11, 2016. TECHNIQUE: Following IV administration of 116 mL of Optiray-320, helical axial images of the chest were obtained utilizing the pulmonary embolus protocol. Maximal intensity projections and sagittal and coronal reformats were viewed on an independent 3D workstation. IV contrast was administered without complication. CT DOSE: 512.36 mGy.cm FINDINGS: This exam is significantly compromised by respiratory motion. There are no central pulmonary emboli. The lobar, segmental and subsegmental pulmonary arteries are inadequately assessed due to respiratory motion. The heart is mildly enlarged. There is extensive coronary artery calcification. Note is made of an aberrant right subclavian artery. There is mild aneurysmal dilatation of the proximal right subclavian artery, measuring 2.3 cm. There is extensive atherosclerotic plaque within this vessel as well as the thoracic aorta. There is no thoracic aortic dissection. There is no pericardial effusion. No enlarged thoracic lymph nodes are present. Central airways are patent. Bilateral lower lobe subpleural opacities favor atelectasis. There is no consolidation to suggest pneumonia. The lungs are suboptimally assessed due to respiratory motion. Bony thorax is unremarkable. There is probable fatty infiltration of the liver. IMPRESSION: 1. Study significantly compromised by respiratory motion artifact. No central pulmonary emboli. The lobar, segmental and subsegmental pulmonary arteries are suboptimally assessed due to respiratory motion. 2. Mild cardiomegaly and extensive coronary artery calcification. 3. 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 No rupture. No dissection of the thoracic aorta. 4. Bilateral lower lobe opacities which favor atelectasis. 5. Fatty liver. Electronically signed by: Vinay Mosher M.D. 09/11/2016 11:09 PM Dictated Date/Time: 09/11/2016 11:00 PM Impression Assessment and Plan 75-year-old female with past medical history of diabetes, hypertension, status post left lower leg fracture currently resident of [facility] presented to the ER with complaints of shortness of breath with cough and fatigue which started about a day ago. Respiratory distress: CXR: 1. Mild left basilar opacities which favor atelectasis. 2. Mild enlargement of the cardiac silhouette without evidence of pulmonary edema. - CTA chest negative for pulmonary embolism - Vancomycin and Zosyn for pneumonia - DuoNeb's as needed Acute kidney injury: Has a history of stage III kidney disease Likely secondary to volume depletion -Creatinine at 1.5 - Continue IV fluids and monitor creatinine Hyperglycemia: History of diabetes which is diet controlled - Blood glucose on arrival 463 - On sliding scale - Hemoglobin A1c ordered Left tib-fib fracture - She was seen by orthopedics , was recommended to use a brace and follow-up as an outpatient in one week - She is unsure which group she saw, will need info from [facility] in AM - Pain control - PT/OT Urinary tract infection: - UA positive for 3+ bacteria, nitrite and WBC with trace leuk esterase -Urine culture pending - Continue on vancomycin and Zosyn Hypertension : - continue amlodipine and atenolol, losartan Dementia: -Continue diltiazem Depression/anxiety: - Continue Lexapro DO NOT RESUSCITATE disp: admitted to tele Attending Addendum: I physically seen and examined this patient, have supervised the medical residents activities, and agree with the H&P as noted above with the following exceptions: NONE The patient is awake, well-developed and adequately nourished, alert and oriented 3, normocephalic and atraumatic, lying in bed and in no acute distress. HEENT--PERRL, EOMI, mucous membranes and oropharynx dry. Neck--supple, no JVD or bruits, thyroid normal, trachea midline, no adenopathy. Heart--normal S1 and S2, no extra beats, no murmurs, rubs or gallops. Lungs--decreased breath sounds left base, no respiratory distress, no accessory muscle use. Abdomen--normal bowel sounds and soft, nontender and nondistended, no hernias or masses, no organomegaly. Extremities--no cyanosis, clubbing or edema. There are good distal pulses b/l. Dermatologic--normal skin turgor, normal color, warm and dry, no abnormal lymph nodes, no rash. Neurologic--cranial nerves II through XII grossly intact. Rheumatologic--normal range of motion. Psychiatric--normal affect. Assessment and Plan: 1. Left lower lobe pneumonia--admit to telemetry for close oxygen monitoring. Place on vancomycin IV per renal dosing, and Zosyn 3.375 mg IV every 8 hours. Duonebs every 4 hours while awake and every 2 hours when necessary. Nasal cannula 2 L of oxygen, titrated to keep pulse ox greater than or equal to 92%. Level of Care Telemetry Advanced Directives Existing Living Will: No Existing Power of Rn Transport: No Resuscitation Status DO NOT RESUSCITATE VTE Prophylaxis VTE Risk Assessment Done? Y/N: Yes Risk Level: Moderate Resident Tracking Resident Involvement: Resident Care Provided Care Provided: Adult Hospital Medicine
[2016-09-12] MEDS ORDERED: PIPERACILL/TAZOBAC IV 3.375 GM in DEXTROSE 5% 100ML IV ONE (07:00)
[2016-09-12] MEDS ORDERED: VANCOMYCIN CONSULT ACTIVE PRN (07:15)
[2016-09-12] MEDS ORDERED: PIPERACILL/TAZOBAC CONSULT ACTIVE PRN (07:15)
[2016-09-12] MEDS: OXYCODONE HCL IR 5 MG TAB (IMMEDIATE RELEASE) PO PRN ×4 (07:48→22:19)
[2016-09-12] MEDS: POLYETHYLENE (MIRALAX) 17 GM PACK PO PRN (07:48)
[2016-09-12] MEDS: MULTIVITAMIN TAB PO SCH (07:49)
[2016-09-12] MEDS: LOSARTAN POTASSIUM 25 MG TAB PO SCH ×2 (07:49→20:48)
[2016-09-12] MEDS: TOLTERODINE TARTRATE LA 2 MG CAPCR PO SCH (07:50)
[2016-09-12] MEDS: AMLODIPINE BESYLATE 5 MG TAB PO SCH (07:50)
[2016-09-12] MEDS: ESCITALOPRAM OXALATE 10 MG TAB PO SCH (07:50)
[2016-09-12] MEDS ORDERED: VANCOMYCIN INJ 2,200 MG in SODIUM CHLORIDE 0.9% 500ML 500 ML IV SCH (08:00)
[2016-09-12] MEDS ORDERED: VANCOMYCIN INJ 1,000 MG in SODIUM CHLORIDE 0.9% 250ML 250 ML IV SCH (09:00)
[2016-09-12 09:07] LABS: ESTIMATED AVERAGE GLUCOSE 217 mg/dl; HA1C FLAG Normal (Normal)
--- NOTE | 2016-09-12 10:30 | Pharmacy Progress Note ---
Pharmacy Abx Initial Consult Date of Service Sep 12, 2016. Pharmacy Dosing Scope Date of Consult: 09/12/16 Consultation requested by: Dr. Ford Pharmacy is consulted to initiate Vancomycin and Zosyn IV dosing therapy, order appropriate labs and adjust drug dose/frequency. Subjective The patient is a 75 year old female admitted on Sep 12, 2016 at 02:02. Objective Height (Feet): 5 Height (Inches): 8.00 Weight (Kilograms): 89.500 Vital Signs (Past 12Hrs) Vital Signs Past 12 Hours Date Time Temp Pulse Resp B/P (MAP) Pulse Ox O2 Delivery O2 Flow Rate FiO2 09/12/16 07:31 36.7 70 22 148/82 (104) 92 Nasal Cannula 3.0 09/12/16 04:44 36.6 65 22 154/82 95 Nasal Cannula 4.0 09/12/16 04:04 64 28 94 09/12/16 04:01 143/74 09/12/16 03:54 64 25 94 09/12/16 03:44 63 15 93 09/12/16 03:39 64 22 94 09/12/16 03:31 138/68 09/12/16 03:24 64 21 94 09/12/16 03:16 37.6 09/12/16 03:15 146/72 09/12/16 03:09 65 14 94 09/12/16 02:54 65 16 93 09/12/16 02:49 65 21 94 09/12/16 02:34 63 19 93 09/12/16 02:19 64 17 94 09/12/16 02:12 65 09/12/16 02:04 64 15 93 09/12/16 01:49 65 23 93 09/12/16 01:34 66 20 94 09/12/16 01:19 65 13 94 09/12/16 01:04 66 16 92 09/12/16 01:01 130/64 09/12/16 00:49 66 17 92 09/12/16 00:34 67 14 93 09/12/16 00:31 123/71 09/12/16 00:19 66 15 94 09/12/16 00:04 64 16 94 09/12/16 00:01 127/73 09/11/16 23:49 66 16 98 09/11/16 23:34 65 26 98 09/11/16 23:32 124/87 09/11/16 23:19 65 24 98 09/11/16 23:04 64 25 99 09/11/16 23:01 125/78 09/11/16 22:49 66 23 95 09/11/16 22:34 62 31 95 09/11/16 22:31 145/70 Lab Results (24Hrs) Laboratory Tests (24 Hours) Item Value Date Time Creatinine 1.10 mg/dl # 09/12/16 05 Est Creatinine Clear Calc Drug Dose 51.7 ml/min 09/12/16519 Creatinine 1.50 mg/dl H 09/11/162132 Est Creatinine Clear Calc Drug Dose 39.7 ml/min 09/11/162132 Test 09/11/16 21:33 09/12/16 05:20 White Blood Count 15.94 K/uL (4.8-10.8) H 14.89 K/uL (4.8-10.8) H Red Blood Count 3.88 M/uL (4.2-5.4) L Hemoglobin 11.7 g/dL (12.0-16.0) L Hematocrit 35.9 % (37-47) L Mean Corpuscular Volume 92.5 fL (80-100) Mean Corpuscular Hemoglobin 30.2 pg (25-34) Mean Corpuscular Hemoglobin Concent 32.6 g/dl (32-36) Platelet Count 175 K/uL (130-400) Mean Platelet Volume 11.3 fL (7.4-10.4) H Neutrophils (%) (Auto) 53.4 % Lymphocytes (%) (Auto) 37.7 % Monocytes (%) (Auto) 6.9 % Eosinophils (%) (Auto) 0.9 % Basophils (%) (Auto) 0.3 % Neutrophils # (Auto) 8.52 K/uL (1.4-6.5) H Lymphocytes # (Auto) 6.01 K/uL (1.2-3.4) H Monocytes # (Auto) 1.10 K/uL (0.11-0.59) H Eosinophils # (Auto) 0.14 K/uL (0-0.5) Basophils # (Auto) 0.05 K/uL (0-0.2) Micro Results Date/Time Source Procedure Growth Status 09/11/16 23:32 Blood Blood Culture Pending Received 09/11/16 23:25 Blood Blood Culture Pending Received 09/12/16 00:00 Nasal MRSA DNA Surveillance Screen - Final Specimen Negative for MRSA by DNA Probe Complete 09/12/16 01:30 Urine,Catheterized Urine Culture Pending Received Risk Factors for Resistance * Resident in a residential, [facility] * Smoker Assessment & Plan Assessment 75 year old female NH resident, daily smoker admitted with SOB, cough, fatigue, possible pneumonia and possible UTI, cultures pending. Plan IV Vancomycin for empiric treatment of possible UTI and Pneumonia Vancomycin IV * Loading dose: 2200 mg IV x1 todat at 0800 (25 mg/kg) * Maintenance dose: 1400 mg IV (15 mg/kg) every 18 hours * Goal trough level for pna/UTI : 15 to 20 mcg/mL * Trough level ordered for 09/14/16 prior to 4th total dose * Estimated pharmacokinetic parameters: T1/2 = 14 hrs, [place] = 0.048/hr, Vd = 0.7L /Kg Piperacillin/tazobactam * 3.375 g bolus administered over 30 minutes, then 3.375 g IV extended infusion every 8 hours for CrCl greater than 20 mL/min Pharmacy will continue to follow and will adjust dose/frequency as necessary. Thank you.
[2016-09-12] MEDS: INSULIN ASPART 100 UNITS/ML 3 ML PEN SC SCH ×3 (10:54→20:52)
[2016-09-12] MEDS: PIPERACILL/TAZOBAC IV 3.375 GM in DEXTROSE 5% 100ML IV SCH ×2 (11:31→20:45)
[2016-09-12] MEDS ORDERED: INSULIN GLARGINE SOLOSTAR 100 UNITS/ML 3 ML PEN SC ONE (13:28)
--- NOTE | 2016-09-12 13:37 | Progress Note ---
Progress Note Date of Service Sep 12, 2016. Progress Note Patient admitted after midnight. Patient seen and examined by me. Patient complaining of fatigue, nausea, and sharp pain in her left lower leg. The patient is unable to describe the intensity of the pain but states that it is constant. Patient also complains of some shortness of breath as well as a non- productive cough and wheezing. The patient denies fevers, chills, sweats, chest pain, palpitations, claudication, vomiting, abdominal pain, dysuria, hematuria, urinary retention, paralysis, weakness, numbness and tingling. Physical exam pertinent for copious secretions in the pharynx. Left eye erythematous with thick secretions/crusts. Patient has decreased breath sounds throughout. Patient has mild diffuse abdominal tenderness. Right above-the- knee amputation. Left leg in brace, very TTP. Ecchymosis on left [place]. Trace pitting edema left lower extremity. Pulses intact, normal capillary refill. Patient alert, oriented to self. Knows she is in hospital but not where, disoriented to place and time. A/P: Respiratory distress/hypoxia, presumed LLL pneumonia in healthcare setting -Continue vanc and Zosyn -Blood cultures, MRSA swab pending -DuoNebs prn -Possible aspiration, consult speech therapy -Aspiration precautions -Insert Guerrero due to incontinence, unable to use bed gambino or commode JEFE on CKD stage III--resolved -Baseline creatinine about 1.1 -Creatinine 1.5 on admission -Creatinine back to baseline L eye conjunctivitis, viral vs bacterial--unknown how long pt has been symptomatic -Cipro drops UTI -Urine culture pending, continue abx as above DM II--previously diet controlled -Start Lantus 15 units SC qd -Insulin sliding scale -Check BSGs q ac and qhs -HgbA1c checked 09/12 was 9.2
[2016-09-12] MEDS ORDERED: PIPERACILL/TAZOBAC IV 3.375 GM in DEXTROSE 5% 100ML 100 ML IV SCH (14:00)
[2016-09-12] MEDS: CIPROFLOXACIN HCL 0.3% OP SOLN 2.5 ML BTL OPL SCH ×3 (14:42→20:47)
[2016-09-12] MEDS ORDERED: SIMVASTATIN 10 MG TAB PO SCH (21:00)
[2016-09-12] MEDS ORDERED: DONEPEZIL HCL 10 MG TAB PO SCH (21:00)
[2016-09-12] MEDS ORDERED: VANCOMYCIN INJ 1,400 MG in SODIUM CHLORIDE 0.9% 500ML 500 ML IV SCH (22:00)
[2016-09-13] VITALS (10 sets, daily range): BP systolic 118–144; BP diastolic 60–83; PULSE 58–88; TEMP 36.5–36.9; O2SAT 92–96
[2016-09-13] MEDS: SODIUM CHLORIDE 0.9% 1000ML 1,000 ML IV SCH ×2 (01:00→02:30)
[2016-09-13] MEDS ORDERED: MoRPHine SULFATE 2 MG/ML CARP IV STA (02:22)
[2016-09-13] MEDS ORDERED: NURSING VERBAL MED ORDER ONE (02:30)
[2016-09-13] MEDS: PIPERACILL/TAZOBAC IV 3.375 GM in DEXTROSE 5% 100ML IV SCH ×2 (04:00→12:18)
[2016-09-13] MEDS: OXYCODONE HCL IR 5 MG TAB (IMMEDIATE RELEASE) PO PRN ×3 (05:34→14:00)
[2016-09-13 06:29] LABS: HEMATOCRIT 33.1 % (37-47); MEAN CELL VOLUME 92.7 fL (80-100); MEAN CORPUSCULAR HEMOGLOBIN 29.7 pg (25-34); MEAN PLATELET VOLUME 10.6 fL (7.4-10.4); PLATELET COUNT 154 K/uL (130-400); RED BLOOD COUNT 3.57 M/uL (4.2-5.4); WHITE BLOOD COUNT 14.21 K/uL (4.8-10.8)
[2016-09-13 07:03] LABS: BUN/CREATININE RATIO 26.5 (10-20); CALCIUM 8.4 mg/dl (8.5-10.1); CREATININE 0.96 mg/dl (0.60-1.20)
[2016-09-13] MEDS ORDERED: INSULIN GLARGINE SOLOSTAR 100 UNITS/ML 3 ML PEN SC SCH (09:00)
[2016-09-13] MEDS: CIPROFLOXACIN HCL 0.3% OP SOLN 2.5 ML BTL OPL SCH ×2 (09:53→12:18)
[2016-09-13] MEDS: TOLTERODINE TARTRATE LA 2 MG CAPCR PO SCH (09:54)
[2016-09-13] MEDS: AMLODIPINE BESYLATE 5 MG TAB PO SCH (09:54)
[2016-09-13] MEDS: ESCITALOPRAM OXALATE 10 MG TAB PO SCH (09:55)
[2016-09-13] MEDS: MULTIVITAMIN TAB PO SCH (09:55)
[2016-09-13] MEDS: LOSARTAN POTASSIUM 25 MG TAB PO SCH (09:56)
[2016-09-13] MEDS: INSULIN ASPART 100 UNITS/ML 3 ML PEN SC SCH ×2 (10:01→12:23)
[2016-09-13] MEDS: POLYETHYLENE (MIRALAX) 17 GM PACK PO PRN (10:11)
[2016-09-13] MEDS ORDERED: LVQ750 PO (10:31)
[2016-09-13] MEDS ORDERED: CLXOPS3 OPL (10:31)
[2016-09-13] MEDS ORDERED: INSDGIPEN SC (10:48)
[2016-09-13] MEDS ORDERED: GLC500 PO (10:48)
--- NOTE | 2016-09-13 10:55 | Discharge Instructions ---
Discharge Instructions Date of Service Sep 13, 2016. Admission Reason for Admission: Pneumonia Discharge Discharge Diagnosis / Problem: Pneumonia Discharge Goals Goal(s): Decrease discomfort, Diagnostic testing, Therapeutic intervention Activity Recommendations Activity Level: Assistance Required Therapies: Physical Therapy, Occupational Therapy . Additional Information Patient informed of condition: Yes Advance Directives: No DNR: Yes Level of Care: Skilled Communicable Disease: Yes (h/o MRSA) Prognosis: Stable Oxygen at (LPM): 3L NC Guerrero Catheter: Yes Instructions / Follow-Up Instructions / Follow-Up The patient was admitted with shortness of breath, cough, and fatigue. She had also been found to be hypoxic at [facility] with oxygen saturations in mid 80s on room air. The patient was found to be hyperglycemic at [facility] with a blood sugar of over 500. The patient was admitted to telemetry for cardiac monitoring, which did not reveal any acute events or arrhythmias. The patient was treated with IV vancomycin and Zosyn for pneumonia in a healthcare setting. The patient has remained stable and her blood cultures are negative so far. She completed 2 full days of IV antibiotics and will need an additional 5 days of treatment to complete a 7 day course. Regarding hyperglycemia, a HgbA1c was checked and was 9.2. Patient arrived without any diabetic medications. She was started on an insulin sliding scale, and then Lantus 15 units SC qd was added with adequate control. Due to her hypoxia, she has been maintained on nasal cannula, between 2-3L. She will need to continue supplemental oxygen per protocol. A Guerrero catheter was also inserted due to incontinence and inability to use a bedpan or commode due to broken left leg. The patient had what appeared to be conjunctivitis in her left eye on arrival. As it is unknown how long these symptoms have occurred, she was started empirically on ciprofloxacin drops. Her eye is improving with these drops, which she will continue at discharge. Medications: *Levaquin 750 mg PO qd x 5 days. *Lantus 15 units SC qd and metformin 500 mg PO BID. *Ciprofloxacin 0.3% ophth solution 1 drop in left eye q4h while awake x 6 more days. *Continue oxycodone 5 mg PO q4h prn pain for left tibial fracture. *Oxygen nasal cannula per protocol. *Continue other home medications as prescribed. Follow up: *Follow up with facility medical provider within 1 week regarding hospital stay and addition of diabetes medications. Pt was on Lantus 15 units SC qd and insulin sliding scale while inpatient. HgbA1c 9.2, discharged with metformin and Lantus. Current Hospital Diet Patient's current hospital diet: Diabetes Type 2 Diet, AHA Diet (Heart Healthy) Discharge Diet Recommended Diet: AHA Diet (Heart Healthy), Diabetes Type 2 Diet Diet Texture: Mechanical Soft (ground) Pending Studies Studies pending at discharge: yes List of pending studies: Urine culture pending. Final blood cultures, preliminary no growth to date. Physician Orders On Transfer Special Precautions: Fall precautions. Aspiration precautions. Vital Signs: Routine. Additional Orders: PT/OT. Oxygen nasal cannula per protocol. Guerrero catheter. BSG checks qac and qhs. Mechanical soft diet, must eat upright. Laboratory Results Hemoglobin A1c Test 09/12/16 05:20 Range/Units Estimated Average Glucose 217 mg/dl Hemoglobin A1c 9.2 H 4.5-5.6 % Medical Emergencies . Who to Call and When: Medical Emergencies: If at any time you feel your situation is an emergency, please call 911 immediately. . Non-Emergent Contact Non-Emergency issues call your: Primary Care Provider . Past History Medical & Surgical History: (1) HCAP (healthcare-associated pneumonia) (2) Hyperglycemia . "Provider Documentation" section prepared by Marti Norris. . Core Measure Problem Core Measures: None
--- NOTE | 2016-09-13 13:51 | Discharge Summary ---
Discharge Summary Date of Service Sep 13, 2016. (Marti Norris, RORY) Discharge Summary Admission Date: Sep 12, 2016 at 02:02 Discharge Date: Sep 13, 2016 Discharge Disposition: shelter facility ([facility]) Principal Diagnosis: Pneumonia Immunizations: Have You Had Influenza Vaccine: No History of Tetanus Vaccine?: Unknown History of Pneumococcal: No History of Hepatitis B Vaccine: Unknown Procedures: CHEST ONE VIEW PORTABLE CLINICAL HISTORY: Shortness of breath. Sepsis COMPARISON STUDY: Chest radiograph February 08, 2013. FINDINGS: There is no pneumothorax or pleural effusion. There is mild left basilar opacity. There is no evidence of pulmonary edema. Moderate enlargement of the cardiac silhouette is noted. IMPRESSION: 1. Mild left basilar opacities which favor atelectasis. 2. Mild enlargement of the cardiac silhouette without evidence of pulmonary edema. CT ANGIOGRAPHY OF THE CHEST, PULMONARY EMBOLUS PROTOCOL CLINICAL HISTORY: Shortness of breath. Hypoxia. Recent leg fracture. History of deep venous thrombus. COMPARISON STUDY: Chest radiograph February 08, 2013 and September 11, 2016. TECHNIQUE: Following IV administration of 116 mL of Optiray-320, helical axial images of the chest were obtained utilizing the pulmonary embolus protocol. Maximal intensity projections and sagittal and coronal reformats were viewed on an independent 3D workstation. IV contrast was administered without complication. CT DOSE: 512.36 mGy.cm FINDINGS: This exam is significantly compromised by respiratory motion. There are no central pulmonary emboli. The lobar, segmental and subsegmental pulmonary arteries are inadequately assessed due to respiratory motion. The heart is mildly enlarged. There is extensive coronary artery calcification. Note is made of an aberrant right subclavian artery. There is mild aneurysmal dilatation of the proximal right subclavian artery, measuring 2.3 cm. There is extensive atherosclerotic plaque within this vessel as well as the thoracic aorta. There is no thoracic aortic dissection. There is no pericardial effusion. No enlarged thoracic lymph nodes are present. Central airways are patent. Bilateral lower lobe subpleural opacities favor atelectasis. There is no consolidation to suggest pneumonia. The lungs are suboptimally assessed due to respiratory motion. Bony thorax is unremarkable. There is probable fatty infiltration of the liver. IMPRESSION: 1. Study significantly compromised by respiratory motion artifact. No central pulmonary emboli. The lobar, segmental and subsegmental pulmonary arteries are suboptimally assessed due to respiratory motion. 2. Mild cardiomegaly and extensive coronary artery calcification. 3. 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 No rupture. No dissection of the thoracic aorta. 4. Bilateral lower lobe opacities which favor atelectasis. 5. Fatty liver. (Marti Norris ., MAXC) Medication Reconciliation New Medications: Levofloxacin (Levofloxacin) 750 Mg Tab 750 MG PO DAILY for 5 Days, #5 TABS Metformin HCl (Metformin HCl) 500 Mg Tab 500 MG PO BID for 30 Days, #60 TABS Ciprofloxacin HCl (Ciprofloxacin HCl) 37 Drops/2.5 Ml Soln 1 DROPS OPL Q4HWA for 6 Days, #24 DROPS 1 drop in left eye every 4 hours while awake x 6 days. Insulin Glargine (Lantus Solostar) 100 Unit/Ml Inj 15 UNITS SC DAILY for 30 Days Continued Medications: Acetaminophen (Tylenol) 325 Mg Tab 650 MG PO Q6H PRN for Pain or Fever, 0 Refills Amlodipine (Norvasc) 10 Mg Tab 10 MG PO DAILY, 0 Refills Atenolol (Tenormin) 100 Mg Tab 100 MG PO DAILY, 0 Refills Donepezil Hydrochloride (Donepezil Hcl) 10 Mg Tab 10 MG PO HS Escitalopram (Lexapro) 10 Mg Tab 10 MG PO DAILY, 0 Refills Ipratropium-Albuterol (Duoneb) 3 Ml Nebu 1 TREATMENT INH Q4H PRN for Wheezing, INHA Losartan Potassium (Cozaar) 25 Mg Tab 25 MG PO BID, TAB Multivitamin (Multivitamin) Tab 1 TAB PO DAILY, 0 Refills Oxycodone Hcl (Oxycodone Hcl) 5 Mg Cap 5 MG PO Q4H PRN for Pain for 30 Days, #120 CAP TAKE 5MG EVERY 4 HOURS FOR MEDIUM TO SEVERE PAIN Simvastatin (Zocor) 10 Mg Tab 10 MG PO HS, TAB Tolterodine Tartrate (Detrol LA) 2 Mg Capcr 6 MG PO DAILY for 90 Days, #270 CAP 3 Refills Discharge Exam Patient reports feeling well. She complains of 10/10 sharp pain in her left lower leg, but otherwise denies complaints. She denies cough, wheezing, and shortness of breath, although nursing reports that she is having a non- productive cough and wheezing. The patient tolerated a mechanical soft diet well. The patient denies fevers, chills, sweats, chest pain, palpitations, claudication, cough, wheezing, shortness of breath, nausea, vomiting, abdominal pain, dysuria, hematuria, urinary retention, paralysis, weakness, numbness and tingling. Review of Systems: Constitutional: No fever, No chills, No sweats Eyes: + discharge (left eye, improved), No worsening of vision, No diplopia ENT: No hearing loss, No sore throat, No trouble swallowing Respiratory: No cough, No wheezing, No shortness of breath Cardiovascular: No chest pain, No claudication, No palpitations Abdomen: No pain, No nausea, No vomiting Musculoskeletal: + joint pain, + muscle pain, + problem reported (severe sharp pain in left lower leg d/t tibia fx), No swelling Genitourinary - Female: + problem reported (Guerrero in place), No dysuria, No urinary retention, No hematuria Neurologic: No paralysis, No weakness, No numbness/tingling Integumentary: No rash, No itch, No color change Physical Exam: General Appearance: WD/WN, no apparent distress, + obese Eyes: normal inspection, PERRL, EOMI, + pertinent finding (left eye erythema /discharge much improved) ENT: normal ENT inspection, hearing grossly normal, pharynx normal, + pertinent finding (no mucus secretions in pharnyx today) Neck: supple, no JVD, trachea midline Respiratory/Chest: no respiratory distress, + decreased breath sounds, + wheezing (slight wheeze) Cardiovascular: regular rate, rhythm, no gallop, + systolic murmur Abdomen / GI: normal bowel sounds, non tender, soft Extremities: normal capillary refill, + swelling (trace pitting edema LLE), + pertinent finding (left lower leg in brace, ecchymosis over left gresham. 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 Pt is a resident of [facility]. Respiratory distress/hypoxia, presumed LLL pneumonia in healthcare setting-- stable -Admitted to telemetry. No acute events overnight. Pt remained in sinus rhythm/ sinus bradycardia with HR 50s-70s -Blood cultures NGTD x 2 -MRSA nares negative -D/C vancomycin -Received 2 days Zosyn IV while inpt. D/C to SNF with Levaquin 750 mg PO qd x 5 days -DuoNebs prn -Concern for aspiration. Pt seen by speech therapy but did not show any s/s of aspiration. Recommend mechanical soft diet and aspiration precautions -Insert Guerrero due to incontinence, unable to use bed gambino or commode JEFE on CKD stage III--resolved after IVF -Baseline creatinine about 1.1 -Creatinine 1.5 on admission -Creatinine back to baseline L eye conjunctivitis, viral vs bacterial--unknown how long pt has been symptomatic -Cipro drops, 1 drop left eye q4h while awake x 7 days total, 6 days remaining UTI? POA -Urine culture NGTD DM II--previously diet controlled -Start Lantus 15 units SC qd, continue at discharge -Insulin sliding scale -Check BSGs q ac and qhs -HgbA1c checked 09/12 was 9.2 -D/C with Lantus and start metformin 500 mg PO BID Left tib-fib fracture--stable -Fall resulting in fx occurred 09/07 per family -Pt seen by [facility] who recommended brace and 1 week f/u. Not surgical candidate -Continue oxycodone 5 mg PO q4h prn pain -PT/OT HTN--stable -Continue Norvasc 10 mg PO qd, atenolol 100 mg PO qd and losartan 25 mg PO BID HLD -Continue Zocor 10 mg PO qhs Dementia -Continue Aricept 10 mg PO qhs Depression/anxiety -Continue Lexapro 10 mg PO qd Code Status -Level V, DO NOT RESUSCITATE Total Time Spent: Greater than 30 minutes This includes examination of the patient, discharge planning, medication reconciliation, and communication with other providers. (Marti Norris ., PA-C) I agree with PA assessment and plan and have seen and examined pt myself Resting comfortably in bed No more bouts of hypoxia Labs and vitals reviewed Cont levaquin on DC for PNA Ok to go back to SNF ([facility] D.O.) Discharge Instructions Please refer to the electronic Patient Visit Report (Discharge Instructions) for additional information. (Marti Norris ., PA-C) Additional Copies To [place], [place]
[2016-09-14] MEDS ORDERED: VANCOMYCIN TROUGH SCH (09:30)
== END 2016-09-13 14:06 | DRG 194 ==
LOC: EDBD 21:49 → C.EDC 21:50 → C.2T 09-12 02:02 → ENRESERV 09-12 02:15
PROVIDERS: ADMIT Family Medicine; ATTEND Hospitalist
DX: J18.9 Pneumonia, unspecified organism (principal); N39.0 Urinary tract infection, site not specified; J98.11 Atelectasis; N17.9 Acute kidney failure, unspecified; Z89.619 Acquired absence of unspecified leg above knee; E11.65 Type 2 diabetes mellitus with hyperglycemia; N18.3 Chronic kidney disease, stage 3 (moderate); F17.200 Nicotine dependence, unspecified, uncomplicated; E86.9 Volume depletion, unspecified; E78.5 Hyperlipidemia, unspecified; I12.9 Hypertensive chronic kidney disease with stage 1 through stage 4 chronic kidney disease, or unspecified chronic kidney disease; F41.8 Other specified anxiety disorders; F03.90 Unspecified dementia, unspecified severity, without behavioral disturbance, psychotic disturbance, mood disturbance, and anxiety; H10.9 Unspecified conjunctivitis; S82.202D Unspecified fracture of shaft of left tibia, subsequent encounter for closed fracture with routine healing; S82.402D Unspecified fracture of shaft of left fibula, subsequent encounter for closed fracture with routine healing; X58.XXXD Exposure to other specified factors, subsequent encounter

== ENCOUNTER → 2016-10-23 | Outpatient (CLI) | payer BC ==
[~2016-10-23] MED LIST changes: +CLXOPS3 OPL; +DONE1TAB26 PO; -DONE5TAB14 PO; +DTRSR/2 PO; +GLC500 PO; -HYDR25TA4 PO; +INSDGIPEN SC; +IPRASOL4 INH; +LVQ750 PO; +OXYC1CAP5 PO; -TOLT4CAP PO; -VITA400C28 PO
[2016-10-23 09:42] LABS: HEMATOCRIT 40.4 % (37-47); MEAN CORPUSCULAR HEMOGLOBIN 29.6 pg (25-34); MEAN CORPUSCULAR HGB CONC 32.9 g/dl (32-36); MEAN PLATELET VOLUME 10.8 fL (7.4-10.4); PLATELET COUNT 209 K/uL (130-400); RED BLOOD COUNT 4.49 M/uL (4.2-5.4); WHITE BLOOD COUNT 13.34 K/uL (4.8-10.8)
[2016-10-23 10:18] LABS: BLOOD UREA NITROGEN 12 mg/dl (7-18); BUN/CREATININE RATIO 15.1 (10-20); CALCIUM 8.9 mg/dl (8.5-10.1); CARBON DIOXIDE 27 mmol/L (21-32); CHLORIDE 108 mmol/L (98-107); CHOLESTEROL 119 mg/dl (0-200); CREATININE 0.76 mg/dl (0.60-1.20); GLUCOSE 83 mg/dl (70-99); POTASSIUM 3.8 mmol/L (3.5-5.1); SODIUM 141 mmol/L (136-145); TRIGLYCERIDES 204 mg/dl (0-150); VERY LOW DENSITY LIPOPROT CALC 41 mg/dl
[2016-10-23 10:22] LABS: CHOLESTEROL/HDL RATIO 3.2; HDL CHOLESTEROL 37 mg/dl; LDL CHOLESTEROL CALCULATED 41 mg/dl
== END ==
LOC: C.LABCC 09:18
PROVIDERS: ATTEND Internal Medicine
DX: D64.9 Anemia, unspecified (principal); E78.5 Hyperlipidemia, unspecified; I10 Essential (primary) hypertension; N18.9 Chronic kidney disease, unspecified

== ENCOUNTER → 2016-10-31 | Outpatient (CLI) | payer BC ==
--- NOTE | 2016-11-15 14:01 | CODING QUERY NO DIAGNOSIS ---
: 1940 TREATMENT RENDERED WITHOUT A DIAGNOSIS To promote full compliance with coding requirements relating to patient care, physician participation is requested in all cases of healthcare marketer uncertainty. Please assist us with providing a diagnosis/symptom for the test(s) below: A diagnosis/symptom was not documented on your Order. A valid diagnosis/symptom is required to bill all insurances. Please remember that we are unable to code a diagnosis of rule out, probable, possible, questionable, or suspected. Tests that require a diagnosis: DOS: 10/31/16 * Prealbumin DIAGNOSIS: Provider Signature: Date: Thank you Smiley Sánchez Health Information Management Once completed, please kindly fax back to [phone] For questions please call [phone]
--- NOTE | 2016-11-29 10:51 | CODING QUERY NO DIAGNOSIS ---
: 1940 TREATMENT RENDERED WITHOUT A DIAGNOSIS To promote full compliance with coding requirements relating to patient care, physician participation is requested in all cases of hcc coders uncertainty. Please assist us with providing a diagnosis/symptom for the test(s) below: A diagnosis/symptom was not documented on your Order. A valid diagnosis/symptom is required to bill all insurances. Please remember that we are unable to code a diagnosis of rule out, probable, possible, questionable, or suspected. Tests that require a diagnosis: DOS: 10/31/16 * PREALBUMIN DIAGNOSIS: Provider Signature: Date: Thank you Smiley Sánchez Health Information Management Once completed, please kindly fax back to [phone] For questions please call [phone]
--- NOTE | 2016-12-06 11:06 | CODING QUERY NO DIAGNOSIS ---
: 1940 TREATMENT RENDERED WITHOUT A DIAGNOSIS To promote full compliance with coding requirements relating to patient care, physician participation is requested in all cases of odd jobs day worker uncertainty. Please assist us with providing a diagnosis/symptom for the test(s) below: A diagnosis/symptom was not documented on your Order. A valid diagnosis/symptom is required to bill all insurances. Please remember that we are unable to code a diagnosis of rule out, probable, possible, questionable, or suspected. Tests that require a diagnosis: DOS: 10/31/16 PREALBUMIN DIAGNOSIS: Provider Signature: Date: Thank you Smiley Sánchez Health Information Management Once completed, please kindly fax back to [phone] For questions please call [phone]
--- NOTE | 2016-12-13 08:04 | CODING QUERY NO DIAGNOSIS ---
: 1940 TREATMENT RENDERED WITHOUT A DIAGNOSIS To promote full compliance with coding requirements relating to patient care, physician participation is requested in all cases of cylinder head assembler uncertainty. Please assist us with providing a diagnosis/symptom for the test(s) below: A diagnosis/symptom was not documented on your Order. A valid diagnosis/symptom is required to bill all insurances. Please remember that we are unable to code a diagnosis of rule out, probable, possible, questionable, or suspected. Tests that require a diagnosis: DOS: 10/31/2016 * PREALBUMIN DIAGNOSIS: Provider Signature: Date: Thank you Smiley Sánchez Health Information Management Once completed, please kindly fax back to [phone] For questions please call [phone]
== END ==
LOC: C.LABCC 08:23
PROVIDERS: ATTEND Internal Medicine
DX: T14.8 Other injury of unspecified body region (principal); X58.XXXA Exposure to other specified factors, initial encounter

== ENCOUNTER → 2016-12-25 | Outpatient (CLI) | payer BC ==
[2016-12-25 08:57] LABS: BLOOD UREA NITROGEN 11 mg/dl (7-18); BUN/CREATININE RATIO 14.6 (10-20); CALCIUM 8.6 mg/dl (8.5-10.1); CARBON DIOXIDE 28 mmol/L (21-32); CHLORIDE 107 mmol/L (98-107); CREATININE 0.73 mg/dl (0.60-1.20); GLUCOSE 76 mg/dl (70-99); POTASSIUM 3.7 mmol/L (3.5-5.1); SODIUM 142 mmol/L (136-145)
[2016-12-25 09:02] LABS: ESTIMATED AVERAGE GLUCOSE 111 mg/dl; HA1C FLAG Normal (Normal)
--- NOTE | 2017-01-01 12:27 | CODING QUERY MEDICAL NECESSITY ---
SUPPORTING DIAGNOSIS NEEDED A supporting diagnosis is required for the test/procedure performed on this patient in order for us to be reimbursed by the patient's insurance. Please provide a supporting diagnosis for the following test/procedure listed below next to the test name along with your signature. *If there is no additional diagnosis for this patient that would support the following test/procedure please document that below next to the test/procedure. Test(s)/Procedure(s) that require a supporting diagnosis: * HEMOGLOBIN A1C DIAGNOSIS: Provider Signature: Date: Thank you Daria Byrd [employer] Information Management Once completed, please kindly fax back to [phone] For questions please call [phone]
== END ==
LOC: C.LABCC 08:27
PROVIDERS: ATTEND Internal Medicine
DX: N18.3 Chronic kidney disease, stage 3 (moderate) (principal); E11.9 Type 2 diabetes mellitus without complications

== ENCOUNTER → 2017-01-17 | Outpatient (CLI) | payer BC ==
[2017-01-17 09:10] LABS: BLOOD UREA NITROGEN 14 mg/dl (7-18); BUN/CREATININE RATIO 17.1 (10-20); CALCIUM 9.1 mg/dl (8.5-10.1); CARBON DIOXIDE 27 mmol/L (21-32); CHLORIDE 106 mmol/L (98-107); CREATININE 0.83 mg/dl (0.60-1.20); GLUCOSE 86 mg/dl (70-99); POTASSIUM 3.9 mmol/L (3.5-5.1); SODIUM 142 mmol/L (136-145)
[2017-01-17 09:11] LABS: PHOSPHORUS 3.4 mg/dl (2.5-4.9)
== END ==
LOC: C.LABCC 08:47
PROVIDERS: ATTEND Internal Medicine
DX: E11.9 Type 2 diabetes mellitus without complications (principal)

== ENCOUNTER → 2017-03-15 | Outpatient (CLI) | payer BC | END | disposition home or self-care (01) | LOC: C.LABCC 11:30 | PROVIDERS: ATTEND Internal Medicine | DX: R19.7 Diarrhea, unspecified (principal) ==

== ENCOUNTER → 2017-07-01 | Outpatient (CLI) | payer BC ==
[2017-07-01 09:35] LABS: HEMOGLOBIN A1C 5.4 % (4.5-5.6)
== END ==
LOC: C.LABCC 08:52
PROVIDERS: ATTEND Internal Medicine
DX: E11.9 Type 2 diabetes mellitus without complications (principal)

== ENCOUNTER → 2017-10-02 | Outpatient (CLI) | payer BC ==
[~2017-10-02] MED LIST changes: -AMLO-114 PO; +AMLO10TA3 PO; +IPRA-64 INH; -IPRASOL4 INH
[2017-10-02 08:45] LABS: HEMOGLOBIN A1C 5.6 % (4.5-5.6)
== END ==
LOC: C.LABCC 07:59
PROVIDERS: ATTEND Internal Medicine
DX: E11.9 Type 2 diabetes mellitus without complications (principal)

== ENCOUNTER 2020-01-13 15:50 | Inpatient (IN) ==
[2020-01-13] MEDS ORDERED: SODIUM CHLORIDE 0.9% 500 ML IV ONE (16:06)
[2020-01-13] MEDS ORDERED: levoFLOXacin/D5W 750 MG/150 ML BAG IV STA (16:07)
--- NOTE | 2020-01-13 16:23 | Emergency Department Note ---
Impression & Plan Respiratory failure, Pneumonia, COVID-19, Pleural effusion, right, CLL (chronic lymphocytic leukemia), Type 2 diabetes mellitus with hyperosmolar hyperglycemic state (HHS), Hypoxia ED Provider Note NAME: ECTOR ROSS AGE: 79 SEX: F : 1940 ARRIVES VIA: Ambulance INFORMANT: Patient ED PROVIDER(S): Vineet Pettit DO CHIEF COMPLAINT: Shortness of breath and AMS HPI: Patient is a 79-year-old female who presents to ER via EMS unresponsive. EMS notes that per their report at [facility] she was diagnosed with Covid and they are trying to manage this as an outpatient. She is a DNR/DNI. Family called and wanted her to be transported to the ER. Per report from [facility] she was 86% on 6 L nasal cannula and lethargic. She tested positive for Covid on the 11 of this month. She would open her eyes to commands there. History is limited secondary to mentation. Son who wishes to uphold her wishes and keep her a DNR/DNI with no extensive i nterventions including pressors. ROS: See above HPI for pertinent positives & negatives. A total of 10 systems reviewed and were otherwise negative. PAST MEDICAL HISTORY:See Below PAST SURGICAL HISTORY:See Below FAMILY HISTORY:See Below SOCIAL HISTORY:See Below HOME MEDICATIONS:See Below ALLERGIES:See Below VITALS:See Below PHYSICAL EXAMINATION: GENERAL: Sitting up in bed, unresponsive, disheveled, ill-appearing, on nonrebreather EYE EXAM: normal conjunctiva. OROPHARYNX: Dry mucous membranes NECK: supple, no nuchal rigidity, no adenopathy, non-tender LUNGS: Diffuse rhonchi bilaterally, normal chest wall mechanics HEART: Tachycardic, S1 normal and S2 normal ABDOMEN: abdomen soft, non-tender, normo-active bowel sounds, no masses, no rebound or guarding. UPPER EXTREMITIES: upper extremities are grossly normal. LOWER EXTREMITIES: Right lower extremity amputation. No pitting edema. NEURO EXAM: Lying in bed, moaning to sternal rub, intermittently moving upper extremities. MEDICAL DECISION MAKING: Patient is a 79-year-old female who presents the ER unresponsive from [facility]. She was diagnosed with Covid. She was brought in by EMS and found unresponsive placed on nonrebreather and was 75% on the nonrebreather at 15 L nasal cannula with a heart rate varying from 100-1 80s. She is a DNR/DNI. IV was established blood work was obtained. Labs show leukocytosis of 37,000 up from a baseline of about 20. No significant anemia. Do favor this combination of CLL and infection. VBG was unremarkable with a pH of 7.35. BMP with an elevated sodium at 146. Glucose was elevated at 622. Lactate was elevated. LFTs and bilirubin was unremarkable. Troponin was elevated 0.081. Procalcitonin was elevated at nearly 1. UA was contaminated with multiple epithelial cells but did have bacteria white cells and leukocytes. Patient was given IV Levaquin and cefepime. She was given 2 L IV normal saline in the ER. She was placed on BiPAP upon arrival and PEEP was increased. Eventually obtained her O2 saturations out of the 60s and into the mid 80s. Patient's blood pressure fluctuated from low 100s to 60s. Heart rate trended up to the 180s. Patient was placed on amnio drip and bolus. Rhythm varied between in A. fib, SVT in a sinus tachycardia. Had multiple conversations with the son Lopez. His phone number is [phone]. He is the power of claims attorney. His goals of care are to treat her with IV medications but she is a DNR/DNI. He does not want any invasive procedures including a central line or drainage of the pleural effusion. He wants to keep her comfortable treat her as best we can at this point with IV medications and remain on BiPAP but not intubate her or do any invasive treatments. He is driving up from [place]. He was okay with IV medications to try to slow her heart rate as well as IV antibiotics fluids and BiPAP. Patient remained on the insulin drip and was given insulin bolus while in the ER. Did consider PEs but as she was so significantly hypotensive, hypoxic and unstable did not feel she would be able to be transported to the CAT scan and this is likely terminal with her current presentation with covid and PNA. Triage Nursing notes reviewed. Prior medical records reviewed Vital Signs: reviewed and remarkable for hypoxia, hypotension, tachycardia Differential diagnosis: Differential diagnosis includes etiologies such as sepsis, UTI, pneumonia, metabolic, electrolyte abnormalities, cardiac sources, intracerebral event, toxicologic, neurological, as well as others were entertained. ER treatment provided: See below Diagnostics interpreted by me: ECG: SVT rate of 172 Normal axis No PVCs ST depressions in the lateral and high lateral leads QTC 477 Cardiac Monitoring: An order was placed for continuous cardiac monitoring. The monitor shows a rate of 160 with Afib rhythm. Laboratory studies: As stated above and show below. Imaging studies: See below Consultation(s): Discussed with Dr. Blevins for further evaluation ED COURSE: Procedures: none Critical Care: I have personally spent 80 minutes of critical care time in the direct management of this patient. This includes bedside care, interpretation of diagnostic studies, and testing, discussion with consultants, patient, and family members, and other required patient management activities. This 80 minutes is in excess of all separately billable procedures. Past Med/Surg History Social History Smoking Status: Unknown if ever smoked Allergies Allergies Allergy/AdvReac Type Severity Reaction Status Date / Time chicken derived Allergy Unknown . Unverified 01/13/20 18:11 Milk Containing Products Allergy Unknown Unverified 01/13/20 18:24 sheep derived (ovine) AdvReac Unknown WOOL Unverified 01/13/20 18:11 Home Meds Home Medications Medication Instructions Recorded Confirmed Morphine Sulfate 10 mg PO Q1H 01/13/20 01/13/20 acetaminophen 325 mg PO QID PRN 01/13/20 01/13/20 amlodipine 10 mg PO HS 01/13/20 01/13/20 atenolol 50 mg PO BID 01/13/20 01/13/20 bisacodyl [Dulcolax (bisacodyl)] 10 mg NH DIRECTED PRN 01/13/20 01/13/20 donepezil 10 mg PO HS 01/13/20 01/13/20 insulin aspart U-100 [Novolog 0 unit SUBCUT DIRECTED 01/13/20 01/13/20 Flexpen U-100 Insulin] losartan 25 mg PO BID 01/13/20 01/13/20 magnesium hydroxide [Milk of 400 mg PO DAILY PRN 01/13/20 01/13/20 Magnesia] multivitamin [Daily-Heather] 1 tab PO DAILY 01/13/20 01/13/20 pantoprazole 40 mg PO DAILY 01/13/20 01/13/20 prednisone 10 mg PO DAILY 01/13/20 01/13/20 simvastatin 10 mg PO DAILY 01/13/20 01/13/20 venlafaxine 37.5 mg PO TID 01/13/20 01/13/20 Results & Data (ED) Vital Signs Vital Signs - 24 hr 01/13/20 15:08 01/13/20 16:02 01/13/20 16:06 Temperature 36.9 C Temperature Source Axillary Pulse Rate 160 H 105 H Pulse Rate from SpO2 Sensor 94 H Respiratory Rate 40 H 36 H Respiratory Effort / Characteristics Spontaneous Respiratory Depth Normal Respiratory Pattern Tachypnea Blood Pressure 100/68 100/68 Blood Pressure Mean 78 71 Pulse Oximetry 72 L 81 L Oxygen Delivery Method Non-rebreather BiPAP BiPAP Fraction of Inspired Oxygen 100 Sepsis New/Unexplained Change in Mental Status Yes Sepsis Action Taken by Nursing Physician Notified 01/13/20 16:15 01/13/20 16:30 01/13/20 16:45 Temperature Temperature Source Pulse Rate 94 H 143 H 145 H Pulse Rate from SpO2 Sensor 77 81 95 H Respiratory Rate 4 L 31 H 64 H Respiratory Effort / Characteristics Respiratory Depth Respiratory Pattern Blood Pressure 103/70 89/64 L 83/60 L Blood Pressure Mean 85 75 70 Pulse Oximetry 84 L 84 L 84 L Oxygen Delivery Method BiPAP BiPAP BiPAP Fraction of Inspired Oxygen Sepsis New/Unexplained Change in Mental Status Sepsis Action Taken by Nursing 01/13/20 17:00 01/13/20 17:17 01/13/20 17:32 Temperature Temperature Source Pulse Rate 178 H 142 H 155 H Pulse Rate from SpO2 Sensor 176 H 78 89 Respiratory Rate 59 H 49 H 42 H Respiratory Effort / Characteristics Respiratory Depth Respiratory Pattern Blood Pressure 79/64 L 96/59 L 103/74 Blood Pressure Mean 74 75 84 Pulse Oximetry 85 L 85 L 86 L Oxygen Delivery Method BiPAP BiPAP BiPAP Fraction of Inspired Oxygen Sepsis New/Unexplained Change in Mental Status Sepsis Action Taken by Nursing 01/13/20 17:46 01/13/20 17:52 01/13/20 17:53 Temperature Temperature Source Pulse Rate 181 H 171 H 171 H Pulse Rate from SpO2 Sensor 175 H 172 H 163 H Respiratory Rate 42 H 44 H 40 H Respiratory Effort / Characteristics Respiratory Depth Respiratory Pattern Blood Pressure 74/63 L 71/55 L 90/65 L Blood Pressure Mean 66 57 70 Pulse Oximetry 85 L 88 L 88 L Oxygen Delivery Method BiPAP BiPAP BiPAP Fraction of Inspired Oxygen Sepsis New/Unexplained Change in Mental Status Sepsis Action Taken by Nursing 01/13/20 18:00 01/13/20 18:16 01/13/20 18:47 Temperature Temperature Source Pulse Rate 172 H 144 H 166 H Pulse Rate from SpO2 Sensor 172 H 107 H 159 H Respiratory Rate 41 H 40 H 27 H Respiratory Effort / Characteristics Respiratory Depth Respiratory Pattern Blood Pressure 68/53 L 76/56 L 90/49 L Blood Pressure Mean 58 66 54 Pulse Oximetry 87 L 90 87 L Oxygen Delivery Method BiPAP BiPAP Fraction of Inspired Oxygen Sepsis New/Unexplained Change in Mental Status Sepsis Action Taken by Nursing 01/13/20 19:01 01/13/20 19:08 01/13/20 19:14 Temperature Temperature Source Pulse Rate 146 H 115 H 163 H Pulse Rate from SpO2 Sensor 126 H 76 87 Respiratory Rate 39 H 35 H 39 H Respiratory Effort / Characteristics Respiratory Depth Respiratory Pattern Blood Pressure 69/51 L 92/64 L 100/46 L Blood Pressure Mean 61 74 78 Pulse Oximetry 82 L 83 L 81 L Oxygen Delivery Method Fraction of Inspired Oxygen Sepsis New/Unexplained Change in Mental Status Sepsis Action Taken by Nursing 01/13/20 19:16 01/13/20 19:20 01/13/20 19:25 Temperature Temperature Source Pulse Rate 97 H 141 H 98 H Pulse Rate from SpO2 Sensor 55 L 110 H 76 Respiratory Rate 39 H 40 H 37 H Respiratory Effort / Characteristics Respiratory Depth Respiratory Pattern Blood Pressure 110/50 L 84/47 L 78/54 L Blood Pressure Mean 79 72 65 Pulse Oximetry 81 L 82 L 80 L Oxygen Delivery Method Fraction of Inspired Oxygen Sepsis New/Unexplained Change in Mental Status Sepsis Action Taken by Nursing 01/13/20 19:30 01/13/20 19:35 01/13/20 19:40 Temperature Temperature Source Pulse Rate 101 H 122 H 131 H Pulse Rate from SpO2 Sensor 83 74 72 Respiratory Rate 35 H 31 H 32 H Respiratory Effort / Characteristics Respiratory Depth Respiratory Pattern Blood Pressure 92/45 L 97/56 L 87/55 L Blood Pressure Mean 68 67 62 Pulse Oximetry 83 L 82 L 81 L Oxygen Delivery Method Fraction of Inspired Oxygen Sepsis New/Unexplained Change in Mental Status Sepsis Action Taken by Nursing 01/13/20 19:45 Temperature Temperature Source Pulse Rate 146 H Pulse Rate from SpO2 Sensor 63 Respiratory Rate 32 H Respiratory Effort / Characteristics Respiratory Depth Respiratory Pattern Blood Pressure 83/45 L Blood Pressure Mean 57 Pulse Oximetry 81 L Oxygen Delivery Method Fraction of Inspired Oxygen Sepsis New/Unexplained Change in Mental Status Sepsis Action Taken by Nursing Laboratory Data Result diagrams: 01/13/20 16:15 01/13/20 16:15 Lab Results 01/13/20 01/13/20 01/13/20 Range/Units 16:15 16:15 16:15 WBC 37.64 H* (4.8-10.8) K/uL RBC 5.04 (4.2-5.4) M/uL Hgb 14.5 (12.0-16.0) g/dL Hct 47.3 H (37-47) % MCV 93.8 (80-100) fL MCH 28.8 (25-34) pg MCHC 30.7 L (32-36) g/dL RDW Std Deviation 51.5 H (36.4-46.3) fL RDW Coeff of Zion 15.1 H (11.5-14.5) % Plt Count 79 L (130-400) K/uL MPV 14.1 H (7.4-10.4) fL Neutrophils % (Manual) 56.0 % Lymphocytes % (Manual) 41.0 % Monocytes % (Manual) 3.0 % Neutrophils # (Manual) 21.08 H (1.4-6.5) K/uL Total Absolute Neuts 21.08 H (1.4-6.5) K/uL Lymphocytes # (Manual) 15.43 H (1.2-3.4) K/uL Total Abs Lymphocytes 15.43 H (1.2-3.4) K/uL Monocytes # (Manual) 1.13 H (0.11-0.59) K/uL VBG pH (7.36-7.41) VBG pCO2 (38-50) mmHg VBG pO2 mmHg VBG HCO3 mmol/L VBG O2 Saturation % VBG Base Excess mEq/L Barometric Pressure mm/Hg Sodium 146 H (136-145) mmol/L Potassium 4.0 (3.5-5.1) mmol/L Chloride 112 H (98-107) mmol/L Carbon Dioxide 28 (21-32) mmol/L Anion Gap 6.0 (3-11) BUN 57 H (7-18) mg/dl Creatinine 1.14 (0.6-1.2) mg/dl Est Cr Clr Drug Dosing Not Reportable Est GFR ( Amer) 53.0 Est GFR (Non-Af Amer) 45.7 BUN/Creatinine Ratio 50.4 H (10-20) Glucose 622 H* (70-99) mg/dl POC Glucose (70-99) mg/dl Lactate (0.4-2.0) mmol/L Calcium 7.9 L (8.5-10.1) mg/dl Phosphorus (2.5-4.9) mg/dl Magnesium 2.3 (1.8-2.4) mg/dl Total Bilirubin 1.2 H (0.2-1) mg/dl AST 6 L (15-37) U/L ALT 7 L (12-78) U/L Alkaline Phosphatase 107 (45-117) U/L Troponin I (0-0.045) ng/ml Total Protein 4.8 L (6.4-8.2) gm/dl Albumin 1.9 L (3.4-5.0) gm/dl Globulin 2.9 (2.5-4.0) gm/dl Albumin/Globulin Ratio 0.7 L (0.9-2) Lipase 268 (73-393) U/L Beta-Hydroxybutyric Acd 17.63 H (0.2-2.81) mg/dl Procalcitonin 0.91 H (0-0.5) ng/ml Urine Color Urine Appearance (Clear) Urine pH (4.5-7.5) Ur Specific Stephen (1.000-1.030) Urine Protein (Negative) Urine Glucose (UA) (Negative) Urine Ketones (Negative) Urine Blood (Negative) Urine Nitrite (Negative) Urine Bilirubin (Negative) Urine Urobilinogen (Negative) Ur Leukocyte Esterase (Negative) Urine WBC (Auto) (0-5) /hpf Urine RBC (Auto) (0-4) /hpf U Hyaline Cast (Auto) (0-5) /lpf U Epithel Cells (Auto) (0-5) /lpf Urine Bacteria (Auto) (Negative) Granular Casts (0) /lpf 01/13/20 01/13/20 01/13/20 Range/Units 16:15 17:15 17:15 WBC (4.8-10.8) K/uL RBC (4.2-5.4) M/uL Hgb (12.0-16.0) g/dL Hct (37-47) % MCV (80-100) fL MCH (25-34) pg MCHC (32-36) g/dL RDW Std Deviation (36.4-46.3) fL RDW Coeff of Zion (11.5-14.5) % Plt Count (130-400) K/uL MPV (7.4-10.4) fL Neutrophils % (Manual) % Lymphocytes % (Manual) % Monocytes % (Manual) % Neutrophils # (Manual) (1.4-6.5) K/uL Total Absolute Neuts (1.4-6.5) K/uL Lymphocytes # (Manual) (1.2-3.4) K/uL Total Abs Lymphocytes (1.2-3.4) K/uL Monocytes # (Manual) (0.11-0.59) K/uL VBG pH 7.35 L (7.36-7.41) VBG pCO2 47 (38-50) mmHg VBG pO2 43 mmHg VBG HCO3 25 mmol/L VBG O2 Saturation 73.6 % VBG Base Excess -1.1 mEq/L Barometric Pressure 736.4 mm/Hg Sodium (136-145) mmol/L Potassium (3.5-5.1) mmol/L Chloride (98-107) mmol/L Carbon Dioxide (21-32) mmol/L Anion Gap (3-11) BUN (7-18) mg/dl Creatinine (0.6-1.2) mg/dl Est Cr Clr Drug Dosing Est GFR ( Amer) Est GFR (Non-Af Amer) BUN/Creatinine Ratio (10-20) Glucose (70-99) mg/dl POC Glucose (70-99) mg/dl Lactate 4.4 H* (0.4-2.0) mmol/L Calcium (8.5-10.1) mg/dl Phosphorus 3.4 (2.5-4.9) mg/dl Magnesium Cancelled (1.8-2.4) mg/dl Total Bilirubin (0.2-1) mg/dl AST (15-37) U/L ALT (12-78) U/L Alkaline Phosphatase (45-117) U/L Troponin I 0.081 H* (0-0.045) ng/ml Total Protein (6.4-8.2) gm/dl Albumin (3.4-5.0) gm/dl Globulin (2.5-4.0) gm/dl Albumin/Globulin Ratio (0.9-2) Lipase (73-393) U/L Beta-Hydroxybutyric Acd (0.2-2.81) mg/dl Procalcitonin (0-0.5) ng/ml Urine Color Urine Appearance (Clear) Urine pH (4.5-7.5) Ur Specific Stephen (1.000-1.030) Urine Protein (Negative) Urine Glucose (UA) (Negative) Urine Ketones (Negative) Urine Blood (Negative) Urine Nitrite (Negative) Urine Bilirubin (Negative) Urine Urobilinogen (Negative) Ur Leukocyte Esterase (Negative) Urine WBC (Auto) (0-5) /hpf Urine RBC (Auto) (0-4) /hpf U Hyaline Cast (Auto) (0-5) /lpf U Epithel Cells (Auto) (0-5) /lpf Urine Bacteria (Auto) (Negative) Granular Casts (0) /lpf 01/13/20 01/13/20 01/13/20 Range/Units 17:15 18:20 18:54 WBC (4.8-10.8) K/uL RBC (4.2-5.4) M/uL Hgb (12.0-16.0) g/dL Hct (37-47) % MCV (80-100) fL MCH (25-34) pg MCHC (32-36) g/dL RDW Std Deviation (36.4-46.3) fL RDW Coeff of Zion (11.5-14.5) % Plt Count (130-400) K/uL MPV (7.4-10.4) fL Neutrophils % (Manual) % Lymphocytes % (Manual) % Monocytes % (Manual) % Neutrophils # (Manual) (1.4-6.5) K/uL Total Absolute Neuts (1.4-6.5) K/uL Lymphocytes # (Manual) (1.2-3.4) K/uL Total Abs Lymphocytes (1.2-3.4) K/uL Monocytes # (Manual) (0.11-0.59) K/uL VBG pH Cancelled (7.36-7.41) VBG pCO2 (38-50) mmHg VBG pO2 mmHg VBG HCO3 mmol/L VBG O2 Saturation % VBG Base Excess mEq/L Barometric Pressure mm/Hg Sodium (136-145) mmol/L Potassium (3.5-5.1) mmol/L Chloride (98-107) mmol/L Carbon Dioxide (21-32) mmol/L Anion Gap (3-11) BUN (7-18) mg/dl Creatinine (0.6-1.2) mg/dl Est Cr Clr Drug Dosing Est GFR ( Amer) Est GFR (Non-Af Amer) BUN/Creatinine Ratio (10-20) Glucose (70-99) mg/dl POC Glucose 491 H* (70-99) mg/dl Lactate (0.4-2.0) mmol/L Calcium (8.5-10.1) mg/dl Phosphorus (2.5-4.9) mg/dl Magnesium (1.8-2.4) mg/dl Total Bilirubin (0.2-1) mg/dl AST (15-37) U/L ALT (12-78) U/L Alkaline Phosphatase (45-117) U/L Troponin I (0-0.045) ng/ml Total Protein (6.4-8.2) gm/dl Albumin (3.4-5.0) gm/dl Globulin (2.5-4.0) gm/dl Albumin/Globulin Ratio (0.9-2) Lipase (73-393) U/L Beta-Hydroxybutyric Acd (0.2-2.81) mg/dl Procalcitonin (0-0.5) ng/ml Urine Color Dark Yellow Urine Appearance Cloudy A (Clear) Urine pH 7.0 (4.5-7.5) Ur Specific Stephen 1.024 (1.000-1.030) Urine Protein 3+ H (Negative) Urine Glucose (UA) 3+ H (Negative) Urine Ketones Trace H (Negative) Urine Blood 2+ H (Negative) Urine Nitrite Negative (Negative) Urine Bilirubin Negative (Negative) Urine Urobilinogen Negative (Negative) Ur Leukocyte Esterase 1+ H (Negative) Urine WBC (Auto) >30 H (0-5) /hpf Urine RBC (Auto) 5-10 H (0-4) /hpf U Hyaline Cast (Auto) 10-30 H (0-5) /lpf U Epithel Cells (Auto) >30 H (0-5) /lpf Urine Bacteria (Auto) 4+ H (Negative) Granular Casts 1-5 H (0) /lpf Administered Medications Insulin Human Regular 250 (units/ Sodium Chloride) 250 mls @ 7.4 mls/hr IV .Q 24H FOSTER; Protocol Stop: 02/12/20 16:59 Last Admin: 01/13/20 18:05 Dose: 7.4 units/hr, 7.4 mls/hr Documented by: [id number] Cosigned by: [id number] Amiodarone HCl/Dextrose (Nexterone / D5w) 360 mg in 200 mls @ 33.333 mls/hr IV ONE ONE Stop: 01/14/20 00:25 Last Admin: 01/13/20 19:20 Dose: 33.3 mls/hr Documented by: [id number] Cosigned by: [id number] Discontinued Medications Sodium Chloride (Nss) 500 mls @ 999 mls/hr IV .Q31M ONE Stop: 01/13/20 16:36 Last Infusion: 01/13/20 17:59 Dose: 0 mls/hr Documented by: [id number] Admin: 01/13/20 17:44 Dose: 999 mls/hr Documented by: [id number] Levofloxacin/Dextrose (Levaquin/D5w) 750 mg in 150 mls @ 100 mls/hr IV NOW STA Stop: 01/13/20 17:36 Last Admin: 01/13/20 17:59 Dose: 100 mls/hr Documented by: [id number] Sodium Chloride (Nss 1000ml) 2,000 mls @ 999 mls/hr IV .Q2H1M ONE Stop: 01/13/20 18:59 Last Admin: 01/13/20 17:59 Dose: 999 mls/hr Documented by: [id number] Amiodarone HCl/Dextrose (Nexterone / D5w) 150 mg in 100 mls @ 600 mls/hr IV NOW STA Stop: 01/13/20 18:35 Last Admin: 01/13/20 19:05 Dose: 600 mls/hr Documented by: [id number] Cosigned by: [id number] Cefepime HCl 1,000 mg/ Syringe 11.3 mls @ 5.5 mls/min IV NOW STA; Protocol Stop: 01/13/20 18:29 Last Admin: 01/13/20 19:56 Dose: 5.5 mls/min Documented by: [id number] Insulin Human Regular (Novolin-R Bolus From Bag) 7 units IV ONE ONE Stop: 01/13/20 17:01 Last Admin: 01/13/20 18:05 Dose: 7 units Documented by: [id number] Cosigned by: [id number] Discharge Plan Visit Data Chief Complaint: Illness Stated Complaint: HYPOXIA, COVID + ED Provider: Vineet Pettit Discharge Problem: Respiratory failure, Pneumonia, COVID-19, Pleural effusion, right, CLL (chronic lymphocytic leukemia), Type 2 diabetes mellitus with hyperosmolar hyperglycemic state (HHS), Hypoxia Forms Stand Alone Forms: My [facility] [place] [facility] Prescriptions Prescriptions: No Action multivitamin [Daily-Heather] Tablet 1 tab PO DAILY RF: 0 acetaminophen 325 mg Tablet 325 mg PO QID PRN (Reason: Pain) RF: 0 prednisone 10 mg tablet 10 mg PO DAILY RF: 0 donepezil 10 mg tablet 10 mg PO HS RF: 0 simvastatin 10 mg tablet 10 mg PO DAILY RF: 0 magnesium hydroxide [Milk of Magnesia] 400 mg/5 mL Suspension 400 mg PO DAILY PRN (Reason: BOWEL ISSUE) RF: 0 amlodipine 10 mg Tablet 10 mg PO HS RF: 0 bisacodyl [Dulcolax (bisacodyl)] 10 mg Suppository 10 mg NH DIRECTED PRN (Reason: BOWEL ISSUE) RF: 0 pantoprazole 40 mg tablet,delayed release (DR/EC) 40 mg PO DAILY RF: 0 losartan 25 mg tablet 25 mg PO BID RF: 0 atenolol 50 mg Tablet 50 mg PO BID RF: 0 insulin aspart U-100 [Novolog Flexpen U-100 Insulin] 100 unit/mL (3 mL) Ins ulin Pen 0 unit SUBCUT DIRECTED RF: 0 venlafaxine 37.5 mg tablet extended release 24hr 37.5 mg PO TID RF: 0 Morphine Sulfate 10 mg PO Q1H RF: 0
[2020-01-13 16:43] LABS: Hematocrit (blood only) 47.3 % (37-47); Hemoglobin 14.5 g/dL (12.0-16.0); Mean Corpuscular Hemoglobin 28.8 pg (25-34); Mean Corpuscular Hgb Conc 30.7 g/dL (32-36); Mean Corpuscular Volume 93.8 fL (80-100); RDW Coefficient of Variation 15.1 % (11.5-14.5); RDW Standard Deviation 51.5 fL (36.4-46.3); Red Blood Count 5.04 M/uL (4.2-5.4); White Blood Count 37.64 K/uL (4.8-10.8)
--- NOTE | 2020-01-13 16:45 | XRay Report ---
XR chest 1V portable HISTORY: 79 years-old Female hypo acute hypoxia COMPARISON: Chest radiograph and CTA chest 09/11/2016 TECHNIQUE: Portable semiupright AP view of the chest FINDINGS: Patient is rotated. Cardiac silhouette is enlarged. No pneumothorax. Clear left lung. Moderate right pleural effusion with multifocal right lung airspace opacities. Degenerative changes of the shoulders and spine. Surgical clips project over the right neck. IMPRESSION: Airspace opacities throughout the right lung are suggestive of pneumonia with moderate ri ght pleural effusion. Follow-up is needed to document resolution and to exclude underlying lesion. ACT 112: Negative or not required by law. The above report was generated using voice recognition software. It may contain grammatical, syntax o r spelling errors. Electronically signed by: Clovis Wells M.D. 01/13/2020 4:44 PM
[2020-01-13 16:51] LABS: Alanine Aminotransferase 7 U/L (12-78); Albumin Globulin Ratio 0.7 (0.9-2); Albumin Level 1.9 gm/dl (3.4-5.0); Alkaline Phosphatase 107 U/L (45-117); Aspartate Aminotransferase 6 U/L (15-37); BUN Creatinine Ratio 50.4 (10-20); Bilirubin,Total 1.2 mg/dl (0.2-1); Blood Urea Nitrogen 57 mg/dl (7-18); Calcium 7.9 mg/dl (8.5-10.1); Carbon Dioxide 28 mmol/L (21-32); Chloride 112 mmol/L (98-107); Est GFR (Non-African American) 45.7; Globulin 2.9 gm/dl (2.5-4.0); Glucose 622 mg/dl (70-99); Lipase 268 U/L (73-393); Magnesium 2.3 mg/dl (1.8-2.4); Sodium 146 mmol/L (136-145); Total Protein 4.8 gm/dl (6.4-8.2)
[2020-01-13 16:56] LABS: Mean Platelet Volume 14.1 fL (7.4-10.4); Platelet Count 79 K/uL (130-400)
[2020-01-13] MEDS ORDERED: SODIUM CHLORIDE 0.9% 1000ML 2,000 ML IV ONE (16:59)
[2020-01-13] MEDS ORDERED: NovoLIN-R BOLUS FROM BAG IV ONE (17:00)
[2020-01-13 17:08] LABS: Beta-Hydroxybutyrate 17.63 mg/dl (0.2-2.81)
[2020-01-13 17:27] LABS: ALC (manual) 15.43 K/uL (1.2-3.4); ANC (manual) 21.08 K/uL (1.4-6.5); Lymphocytes # (manual) 15.43 K/uL (1.2-3.4); Monocytes # (manual) 1.13 K/uL (0.11-0.59); Neutrophils # (manual) 21.08 K/uL (1.4-6.5)
[2020-01-13 17:50] LABS: Base Excess VBG -1.1 mEq/L; Oxygen Saturation VBG 73.6 %; pH VBG 7.35 (7.36-7.41)
[2020-01-13] MEDS: INSULIN REGULAR 250 UNITS in SODIUM CHLORIDE 0.9% 247.5 ML IV SCH (18:05)
[2020-01-13] MEDS ORDERED: AMIODARONE / D5W 150 MG/100 ML BAG IV STA (18:26)
[2020-01-13] MEDS ORDERED: AMIODARONE / D5W 360 MG/200 ML BAG IV ONE (18:26)
[2020-01-13] MEDS ORDERED: STAT IV Infusion **Titration per Protocol STA (18:26)
[2020-01-13] MEDS ORDERED: AMIODARONE IV BOLUS & DRIP IV STA (18:26)
[2020-01-13] MEDS ORDERED: 0.2 MICRON FILTER SET 1 EA IV ONE (18:26)
[2020-01-13] MEDS ORDERED: CEFEPIME 1,000 MG in SYRINGE 0 ML IV STA (18:27)
[2020-01-13 18:34] LABS: Phosphorus 3.4 mg/dl (2.5-4.9); Troponin I 0.081 ng/ml (0-0.045)
[2020-01-13 18:39] LABS: Appearance Urine Cloudy (Clear); Bacteria Urine Automated 4+ (Negative); Blood Urine 2+ (Negative); Color Urine Dark Yellow; Epithelial Cell Urine Auto >30 /lpf (0-5); Glucose Urine UA 3+ (Negative); Ketones Urine Trace (Negative); Leukocyte Esterase Urine 1+ (Negative); Nitrite Urine Negative (Negative); Protein Urine 3+ (Negative); Specific Gravity Urine 1.024 (1.000-1.030); Urobilinogen Urine Negative (Negative); WBC Urine Automated >30 /hpf (0-5)
[2020-01-13 18:48] LABS: Bilirubin Urine Negative (Negative); Ictotest Urine Negative (Negative)
[2020-01-13] MEDS ORDERED: DEXAMETHASONE SOD INJ 4 MG/ML VIAL IV STA (19:00)
[2020-01-13] MEDS ORDERED: HYDROCORTISONE SOD SUCCINATE 100 MG/2 ML VIAL IV STA (19:04)
[2020-01-13] MEDS ORDERED: metroNIDAZOLE 500 MG/100 ML BAG IV STA (19:19)
--- NOTE | 2020-01-13 19:49 | History & Physical Report ---
Date of Service January 13, 2020 Assessment & Plan (1) Goals of care, counseling/discussion: Myself and Dr. Pettit have discussed likely futility of further treatment with her son who is power of collections attorney. This is based upon her O2 sats of 80% on BiPAP with FiO2 100% and a nonresponsive state with aspiration and COVID-19 pneumonia. He reports he wishes to continue treatments without significant invasive procedures prior to his expected arrival around 11 PM. I discussed this will involve multiple finger pricks to continue monitoring blood glucose and frequent checks to monitor her BMP and possible need for ABGs. He agrees to continue all these measures. We did discuss a central line which is not opposed to however when discussing the futility of treatment and no medication via central line would increase her oxygenation we decided to hold off on this unless her O2 sats started to improve and she required a central line for vasopressors. He confirmed DNR/DNI status. Plan to have further discussion when her son arrives. (2) Acute respiratory failure with hypoxia: Continuous BiPAP. Unfortunately O2 sats 80-85% on FiO2 100%. Patient is not for intubation therefore will admitted to (3) Type 2 diabetes mellitus with hyperosmolar hyperglycemic state (HHS): 3L NSS given in ER. Elevated Na. Start 0.5NSS with KCl 40 meq @ 250ml/hr. Insulin IV drip HHS protocol with aim glucose 250-300 BMP/VBG Q4H (4) COVID-19: Dexamethasone 6mg IV, will hold off further treatment with remdesivir +/- convalescent plasma pending any clinical improvement. (5) Aspiration pneumonia: Given very one sided suspect aspiration. Rx cefepime and metronidazole. (6) Pleural effusion, right: Monitor with CXR in AM (7) Sepsis associated hypotension: Improved with 3L NSS. Start 0.5NSS with 40 meq KCl @ 250ml/hr. Likely 9- 10L deficit. Broad spectrum antibiotics with vancomycin, cefepime and Levaquin. Follow up blood and urine cultures. Lactate 4.4, repeat pending (8) Lactic acidosis: Continue monitoring for improvement Q4H Secondary to tissue hypoperfusion with hypotension and hypoxia. (9) Chronic steroid use: Stress dose steroids in addition to dexamethasone above for the first 24 hours with hydrocortisone 100mg IV now, then 50mg Q6H. (10) Paroxysmal SVT (supraventricular tachycardia): Start amiodarone drip IV with bolus. (11) Chronic ITP (idiopathic thrombocytopenia): Chronic prednisone use. Stress dose steroids as above. (12) CLL (chronic lymphocytic leukemia): On no specific treatment for this as an outpatient. (13) Dementia: Medications on hold while NPO (14) CKD (chronic kidney disease) stage 3, GFR 30-59 ml/min: Surprisingly close to baseline. Granular casts in UA however. (15) Oral phase dysphagia: Notable history of this. (16) Stress incontinence: Medications on hold while NPO (17) DVT prophylaxis: Heparin 7500 units SQ Q8H Admission and Anticipated Discharge Date Admission Date: 01/13/2020 History of Present Illness Chief Complaint: Shortness of breath, hypoxia Primary Care Provider: [facility] Emma Dasilva is a 79-year-old female who presents to the ER by EMS from [facility] with acute hypoxic respiratory failure with O2 sats 82% on 6 L nasal cannula. Unable to take history from patient due to unresponsiveness therefore history taken from provided notes from long term. She tested Covid positive on 01/03/2020. The swab was performed due to surveillance. Since then she has been getting progressively worse cough and hypoxia requiring O2 via oxygen mask. She has significant comorbidities including CLL/ITP on chronic steroids, type 2 diabetes mellitus, peripheral artery disease, dementia. Discussed with her son Lopez over the phone (number: [phone]) who confirmed DNR/DNI status. He will be coming in at 11pm to discuss ongoing care. In the ER CXR concerning for aspiration pneumonia and suspected right pleural effusion - started on cefepime and levquin. UA concerning for infection. She was having intermittent episodes of SVT treated with IV amiodarone. Glucose markedly elevated at 662 - 3L NSS bolus given and started on insulin IV drip. Allergies Allergy/AdvReac Type Severity Reaction Status Date / Time chicken derived Allergy Unknown . Unverified 01/13/20 18:11 Milk Containing Products Allergy Unknown Unverified 01/13/20 18:24 sheep derived (ovine) AdvReac Unknown WOOL Unverified 01/13/20 18:11 Home Medications Home Medications Medication Instructions Recorded Confirmed Type Morphine Sulfate 10 mg PO Q1H 01/13/20 01/13/20 History acetaminophen 325 mg PO QID PRN 01/13/20 01/13/20 History amlodipine 10 mg PO HS 01/13/20 01/13/20 History atenolol 50 mg PO BID 01/13/20 01/13/20 History bisacodyl [Dulcolax (bisacodyl)] 10 mg IA DIRECTED PRN 01/13/20 01/13/20 History donepezil 10 mg PO HS 01/13/20 01/13/20 History insulin aspart U-100 [Novolog 0 unit SUBCUT DIRECTED 01/13/20 01/13/20 History Flexpen U-100 Insulin] losartan 25 mg PO BID 01/13/20 01/13/20 History magnesium hydroxide [Milk of 400 mg PO DAILY PRN 01/13/20 01/13/20 History Magnesia] multivitamin [Daily-Heather] 1 tab PO DAILY 01/13/20 01/13/20 History pantoprazole 40 mg PO DAILY 01/13/20 01/13/20 History prednisone 10 mg PO DAILY 01/13/20 01/13/20 History simvastatin 10 mg PO DAILY 01/13/20 01/13/20 History venlafaxine 37.5 mg PO TID 01/13/20 01/13/20 History Past Med/Surg History Medical History Acute poliomyelitis Chronic ITP (idiopathic thrombocytopenia) CKD (chronic kidney disease) stage 3, GFR 30-59 ml/min CLL (chronic lymphocytic leukemia) Dementia Generalized muscle weakness History of MRSA infection Nontoxic goiter Oral phase dysphagia Organ-limited amyloidosis Stress incontinence TIA (transient ischemic attack) Type 2 diabetes mellitus Social History Smoking Status: Unknown if ever smoked Communication Ability: Unable Multi Craft Maintenance Technician Required: No Beliefs That Will Affect Care: None Current Living Situation: [facility] Feels Safe at Home: Hesitant to Answer Assistive Devices: BiPap, Denture - Upper and Denture - Lower Review of Systems Review of Systems: Unobtainable due to cognitive status and Unobtainable due to reduced consciousness Physical Exam Constitutional: + ill appearing, + obese and + altered mental status; + not well nourished Neck: trachea midline Respiratory: + respiratory distress, + labored breathing, + retractions and + uses accessory muscles; no cough, expiratory phase not prolonged and no audible wheezes Auscultation: + rhonchi (bilateral throughout) Cardiovascular: Rate/Rhythm: + tachycardic and + irregularly irregular Heart Sounds: no murmur Extremities: + abnormal capillary refill (prolonged 5-6 seconds at peripheries) Gastrointestinal (Abdomen): Inspection/Auscultation: normal bowel sounds Percussion/Palpation: abdomen soft Neurologic: + not awake (GCS 8 [id number]) Psychiatric: Orientation: + not alert Results & Data Results & Data (MN) Vital Signs (Past 12 Hours) Vital Signs Temp Pulse Resp BP Pulse Ox 01/13/20 18:16 144 H 40 H 76/56 L 90 01/13/20 18:00 172 H 41 H 68/53 L 87 L 01/13/20 17:53 171 H 40 H 90/65 L 88 L 01/13/20 17:52 171 H 44 H 71/55 L 88 L 01/13/20 17:46 181 H 42 H 74/63 L 85 L 01/13/20 17:32 155 H 42 H 103/74 86 L 01/13/20 17:17 142 H 49 H 96/59 L 85 L 01/13/20 17:00 178 H 59 H 79/64 L 85 L 01/13/20 16:45 145 H 64 H 83/60 L 84 L 01/13/20 16:30 143 H 31 H 89/64 L 84 L 01/13/20 16:15 94 H 4 L 103/70 84 L 01/13/20 16:02 105 H 36 H 100/68 81 L 01/13/20 15:08 36.9 C 160 H 40 H 100/68 72 L Diagnostic Findings XR chest 1V portable IMPRESSION: Airspace opacities throughout the right lung are suggestive of pneumonia with moderate right pleural effusion. Follow-up is needed to document resolution and to exclude underlying lesion. ECG Indication: tachycardia Rate (beats per minute): 112 Rhythm: sinus tachycardia Findings: + other (T wave flattening laterally) and + PVC Additional Comments: Additional EKG and telemetry with episodes of SVT Code Status & VTE Plan Code Status DNR/DNI VTE Prophylaxis Plan VTE Prophylaxis will be ordered: Yes Critical Care Time Critical Care Time: Yes Total Critical Care Time: 25 PG Care Time/CCT Total # of Minutes Spent Total Time Spent with Patient: Total time spent is greater than 50% in coordination of care (as documented) at patient's floor/unit and/or counseling patient: Critical Care Time: Yes Total Critical Care Time: 25 Coding Level of Care Code 41595 Initial Inpt Care Lvl 3 Diagnoses Goals of care, counseling/discussion Z71.89 Acute respiratory failure with hypoxia J96.01 Type 2 diabetes mellitus with hyperosmolar hyperglycemic state (HHS) E11.00; E11.65 COVID-19 U07.1 Aspiration pneumonia J69.0 Pleural effusion, right J90 Sepsis associated hypotension A41.9; I95.9 Lactic acidosis E87.2 Chronic steroid use Paroxysmal SVT (supraventricular tachycardia) I47.1 Chronic ITP (idiopathic thrombocytopenia) D69.3 CLL (chronic lymphocytic leukemia) C91.10 Dementia F03.90 CKD (chronic kidney disease) stage 3, GFR 30-59 ml/min N18.30 Oral phase dysphagia R13.11 Stress incontinence N39.3 DVT prophylaxis Z29.9 Additional Codes Critical Care Time - Critical Care Time: Yes ([id number])
[2020-01-13] MEDS ORDERED: NORMOSOL-R 500 ML IV ONE (20:37)
[2020-01-13] MEDS ORDERED: PENDING 1/2NSS+40mEq KCL IVF SCH (20:45)
[2020-01-13 21:41] LABS: BUN Creatinine Ratio 40.2 (10-20); Blood Urea Nitrogen 56 mg/dl (7-18); Calcium 6.8 mg/dl (8.5-10.1); Carbon Dioxide 22 mmol/L (21-32); Chloride 119 mmol/L (98-107); Est GFR (African American) 41.7; Glucose 447 mg/dl (70-99); Magnesium 1.9 mg/dl (1.8-2.4); Phosphorus 3.2 mg/dl (2.5-4.9); Potassium 3.9 mmol/L (3.5-5.1); Sodium 148 mmol/L (136-145)
[2020-01-13 21:54] LABS: Beta-Hydroxybutyrate 3.35 mg/dl (0.2-2.81)
[2020-01-13] MEDS ORDERED: POTASSIUM CHLORIDE 40 MEQ in SODIUM CHLORIDE 0.45 % 1,000 ML IV SCH (22:00)
[2020-01-13] MEDS ORDERED: VANCOMYCIN CONSULT ACTIVE PRN (23:49)
[2020-01-14] MEDS ORDERED: PATIENT'S HEIGHT AND/OR WEIGHT NEEDED SCH (00:30)
[2020-01-14] MEDS ORDERED: CEFEPIME CONSULT ACTIVE PRN (00:48)
[2020-01-14] MEDS ORDERED: HYDROCORTISONE SOD SUCCINATE 100 MG/2 ML VIAL IV SCH (01:00)
[2020-01-14] MEDS ORDERED: VANCOMYCIN HCL 1,500 MG in SODIUM CHLORIDE 0.9% 500 ML IV ONE (01:00)
[2020-01-14] MEDS ORDERED: PHARMACY GLYCEMIC MGMT CONSULT PRN (01:12)
[2020-01-14] MEDS ORDERED: GLUCOSE 40% GEL 15 GM TUBE PO PRN (01:15)
[2020-01-14] MEDS ORDERED: CARBOHYDRATES FOR HYPOGLYCEMIA PO PRN (01:15)
[2020-01-14] MEDS ORDERED: GLUCAGON FOR INJ 1 MG VIAL SQ PRN (01:15)
[2020-01-14] MEDS ORDERED: DEXTROSE 50% 50 ML SYRINGE IV PRN (01:15)
[2020-01-14] MEDS ORDERED: GLUCOSE 10 TABS/TUBE PO PRN (01:15)
[2020-01-14] MEDS ORDERED: SODIUM CHLOR 0.45% + 20MEQ KCL 20 MEQ/1,000 ML BAG IV SCH (01:15)
[2020-01-14] MEDS: AMIODARONE / D5W 360 MG/200 ML BAG IV SCH ×2 (01:37→14:43)
[2020-01-14] MEDS: INSULIN ASPART 100 UNITS/ML 3 ML PEN SC SCH ×5 (01:42→21:37)
[2020-01-14] MEDS: HYDROCORTISONE SOD 50 MG in SYRINGE 0 ML IV SCH ×4 (01:55→15:43)
[2020-01-14 01:58] LABS: BUN Creatinine Ratio 45.7 (10-20); Calcium 6.6 mg/dl (8.5-10.1); Creatinine Clr Calc Pharmacy 36.9 ml/min; Est GFR (African American) 48.8; Est GFR (Non-African American) 42.1; Magnesium 1.9 mg/dl (1.8-2.4); Phosphorus 2.2 mg/dl (2.5-4.9); Potassium 4.6 mmol/L (3.5-5.1)
[2020-01-14] MEDS ORDERED: POTASSIUM PHOS 3 MMOL/1 ML INFUSION IV STA (02:57)
[2020-01-14] MEDS ORDERED: POTASSIUM PHOSPHATE 15 MMOL in SODIUM CHLORIDE 0.9% 250 ML IV ONE (03:00)
[2020-01-14] MEDS: D5W AND 1/4NSS + 20MEQ KCL 20 MEQ/1,000 ML BAG IV SCH ×6 (05:08→18:54)
[2020-01-14 06:17] LABS: BUN Creatinine Ratio 49.6 (10-20); Calcium 6.6 mg/dl (8.5-10.1); Creatinine Clr Calc Pharmacy 42.1 ml/min; Est GFR (African American) 57.2; Est GFR (Non-African American) 49.3; Phosphorus 2.5 mg/dl (2.5-4.9)
[2020-01-14] MEDS: HEPARIN SOD 5,000 UNIT/0.5 ML VIAL SQ SCH ×3 (06:40→21:38)
[2020-01-14] MEDS ORDERED: CEFEPIME 2,000 MG in SYRINGE 0 ML IV SCH (08:00)
[2020-01-14] MEDS ORDERED: CEFEPIME 1,000 MG in SYRINGE 0 ML IV SCH (08:00)
[2020-01-14] MEDS ORDERED: metroNIDAZOLE 500 MG/100 ML BAG IV SCH (08:00)
[2020-01-14] MEDS ORDERED: DEXAMETHASONE SOD INJ 4 MG/ML VIAL IV SCH (09:00)
[2020-01-14 09:42] LABS: Hematocrit (blood only) 36.9 % (37-47); Hemoglobin 11.8 g/dL (12.0-16.0); Mean Corpuscular Hemoglobin 28.8 pg (25-34); Mean Platelet Volume 13.5 fL (7.4-10.4); Platelet Count 52 K/uL (130-400); RDW Standard Deviation 49.3 fL (36.4-46.3); White Blood Count 31.23 K/uL (4.8-10.8)
[2020-01-14 09:44] LABS: Basophils # (auto) 0.03 K/uL (0-0.2); Basophils % (auto) 0.1 %; Calcium 6.7 mg/dl (8.5-10.1); Creatinine Clr Calc Pharmacy 38.2 ml/min; Echinocytes 1+; Est GFR (African American) 50.8; Est GFR (Non-African American) 43.8; Immature Granulocytes # (auto) 0.18 K/uL (0.00-0.02); Immature Granulocytes % (auto) 0.6 %; Lymphocytes # (auto) 14.17 K/uL (1.2-3.4); Lymphocytes % (auto) 45.4 %; Magnesium 1.7 mg/dl (1.8-2.4); Monocytes # (auto) 0.12 K/uL (0.11-0.59); Monocytes % (auto) 0.4 %; Neutrophils # (auto) 16.73 K/uL (1.4-6.5); Neutrophils % (auto) 53.5 %; Phosphorus 3.1 mg/dl (2.5-4.9)
[2020-01-14] MEDS: DEXAMETHASONE SOD PHOSPHATE 6 MG in SYRINGE 0 ML IV SCH (09:44)
[2020-01-14 09:58] LABS: Beta-Hydroxybutyrate 1.53 mg/dl (0.2-2.81)
[2020-01-14] MEDS: INSULIN REGULAR 250 UNITS in SODIUM CHLORIDE 0.9% 247.5 ML IV SCH (10:22)
--- NOTE | 2020-01-14 10:25 | XRay Report ---
XR chest 1V portable CLINICAL HISTORY: right pleural effusion COMPARISON STUDY: 01/13/2020 FINDINGS: The cardiac and mediastinal contours remain stable. There are progressive right lung airspa ce opacity suspicious for a pneumonia. There is right hilar prominence and adenopathy/central mass ca nnot be excluded. The left lung is clear. There is a suspected right pleural effusion.[ IMPRESSION: 1. Progressive right lung airspace opacity suspicious for pneumonia 2. Right hilar prominence. Adenopathy/central mass cannot be excluded 3. Small right pleural effusion ACT 112: Negative or not required by law. Electronically signed by: Jorge Stevenson M.D. 01/14/2020 9:50 AM
[2020-01-14 10:26] LABS: Potassium 5.6 mmol/L (3.5-5.1)
[2020-01-14] MEDS ORDERED: REMDESIVIR 200 MG in SODIUM CHLORIDE 0.9% 210 ML IV STA (11:49)
[2020-01-14] MEDS ORDERED: MoRPHine SULFATE 2 MG/ML CARP IV PRN (11:49)
--- NOTE | 2020-01-14 11:55 | Electrocardiogram Report ---
Test Reason : Blood Pressure : / mmHG Vent. Rate : 112 BPM Atrial Rate : 112 BPM P-R Int : 200 ms QRS Dur : 074 ms QT Int : 328 ms P-R-T Axes : 080 016 265 degrees QTc Int : 447 ms Multifocal atrial tachycardia Anterior infarct (cited on or before 18-DEC-2010) T wave abnormality, consider inferior ischemia Abnormal ECG When compared with ECG of 11-SEP-2016 22:04, Multifocal atrial tachycardia is now Present Vent. rate has increased BY 49 BPM Borderline criteria for Inferior infarct are no longer Present Confirmed by Jeison Fountain ([id number]) on 01/14/2020 11:55:09 AM Referred By: [facility] Confirmed By:Jeison Fountain
--- NOTE | 2020-01-14 12:03 | Electrocardiogram Report ---
Test Reason : Blood Pressure : / mmHG Vent. Rate : 172 BPM Atrial Rate : 220 BPM P-R Int : 000 ms QRS Dur : 076 ms QT Int : 282 ms P-R-T Axes : 000 030 191 degrees QTc Int : 477 ms Supraventricular tachycardia Abnormal ECG When compared with ECG of 13-JAN-2020 16:00, (unconfirmed) Vent. rate has increased BY 60 BPM Supraventricular tachycardia is now Present T wave inversion no longer evident in Inferior leads Inverted T waves have replaced nonspecific T wave abnormality in Lateral leads Confirmed by Jeison Fountain ([id number]) on 01/14/2020 12:03:25 PM Referred By: [facility] Confirmed By:Jeison Fountain
[2020-01-14] MEDS ORDERED: INSULIN GLARGINE SOLOSTAR 100 UNITS/ML 3 ML PEN SC ONE (12:15)
[2020-01-14] MEDS ORDERED: MAGNESIUM SULFATE / D5W 1 GM/100 ML BAG IV ONE (12:30)
[2020-01-14] MEDS: SODIUM CHLORIDE 0.9% 10ML FLUSH IV SCH (13:16)
[2020-01-14 13:39] LABS: Calcium 6.4 mg/dl (8.5-10.1); Creatinine Clr Calc Pharmacy 42.5 ml/min; Est GFR (African American) 57.8; Est GFR (Non-African American) 49.9; Magnesium 1.8 mg/dl (1.8-2.4); Phosphorus 2.2 mg/dl (2.5-4.9); Potassium 5.6 mmol/L (3.5-5.1)
[2020-01-14 14:03] LABS: Beta-Hydroxybutyrate 0.63 mg/dl (0.2-2.81)
--- NOTE | 2020-01-14 14:58 | Pharmacy Report ---
Glycemic Control Consultation - Date of Service January 14, 2020 - Scope Scope: Glycemic Pharmacist consulted for glycemic control and to write orders per [facility] inpatient glycemic control protocol. - Objective Weight: 74.3 kg Accuchecks BSG (last 24hrs): 01/13/20 01/13/20 01/13/20 16:15 18:54 20:40 Glucose 622 H* POC Glucose 491 H* 399 H* 01/13/20 01/14/20 01/14/20 21:09 00:38 01:21 Glucose 447 H* 234 H POC Glucose 254 H 01/14/20 01/14/20 01/14/20 01:54 03:52 05:14 Glucose POC Glucose 212 H 182 H 176 H 01/14/20 01/14/20 01/14/20 05:30 06:26 08:14 Glucose 206 H POC Glucose 287 H 303 H* 01/14/20 01/14/20 01/14/20 08:58 09:41 10:59 Glucose 346 H* POC Glucose 372 H* 322 H* 01/14/20 01/14/20 01/14/20 11:56 11:57 11:58 Glucose POC Glucose 352 H* 470 H* 394 H* 01/14/20 01/14/20 01/14/20 12:51 13:08 14:17 Glucose 303 H* POC Glucose 307 H* 230 H 01/14/20 14:20 Glucose POC Glucose 216 H Laboratory Data (last 24hrs): 01/13/20 01/13/20 01/14/20 16:15 21:09 01:21 Potassium 4.0 3.9 4.6 D Carbon Dioxide 28 22 21 Anion Gap 6.0 8.0 7.0 Creatinine 1.14 1.39 H 1.22 H Est Cr Clr Drug Dosing Not Reportable Not Reportable 36.9 Beta-Hydroxybutyric Acd 17.63 H 3.35 H 01/14/20 01/14/20 01/14/20 05:30 08:58 12:51 Potassium 5.6 H D 5.6 H Carbon Dioxide 21 21 19 L Anion Gap 7.0 5.0 7.0 Creatinine 1.07 1.18 1.06 Est Cr Clr Drug Dosing 42.1 38.2 42.5 Beta-Hydroxybutyric Acd 1.53 0.63 - Recent Pertinent Medications Outpatient Anti-diabetic Regimen: * Novolog SSI * A1c = 6.3% (10/07/2019) * Repeat pending Risk Factors for Insulin Resistance: * Steroids: * Hydrocortisone 50 mg IV Q6H + Dexamethasone 6 mg IV Q6H * Infection: * Levofloxacin 750 mg IV Q48H + Remdesivir * IVF: * D5 1/4 NS + 20 KCl @ 250 mL/hr * Diet: * NPO - Assessment & Plan Assessment & Plan: ASSESSMENT: * 79 yo F admitted secondary to acute hypoxic respiratory failure. Pharmacy was consulted for inpatient glycemic management. Patient has been on an insulin drip since admission. She did test positive for Covid-19 so will need to be cognizant of PPE use. * Upon admission, patient's BSG was > 600 mg/dL. She did not have an anion gap. With a serum osmolarity of 347, patient was determined to have HHS and started on an insulin drip at 7.4 units/hr. * BSGs started to trend down overnight but then went back this morning likely due to both dexamethasone for covid-19 and stress dose steroids. Laboratory data has returned to baseline. Most recent potassium was actually elevated at 5.6 so fluids consisting of D5 1/4 NS with 20 KCl were slowed down to 100 mLs/hr. * Patient remains minimally responsive this afternoon but BSGs have started to t rend in the right direction following a 15 unit dose of Lantus around 1300. * BSGs trends are: [phone] mg/dL. There are talks of possible comfort care measures in the near future. Given the patient is minimally responsive, will continue with insulin gtt for the time being with a goal range of 150-200. PLAN FOR INPATIENT GLYCEMIC CONTROL: * Continue IV insulin infusion * Goal Range 150 - 200 mg/dl * Basal insulin * Lantus 15 units SQ x 1 * Bolus insulin * NovoLog per scale ACHS or Q6hrs while NPO * Please note that the plan above was derived based on current level of insulin resistance and hospital stress. These recommendations are appropriate for inpatient admission only. Plan of care upon discharge will need to be reassessed to avoid potential outpatient hypo/hyperglycemia. Thank you.
[2020-01-14] MEDS: MoRPHine SULFATE 4 MG/ML 1 ML CARP\\VIAL IV PRN ×2 (15:11→18:49)
--- NOTE | 2020-01-14 15:13 | Hospitalist Progress Note ---
Date of Service January 14, 2020 Assessment & Plan (1) Goals of care, counseling/discussion: talked with patient's son Lopez over the phone today, 01/13 discussed that patient is still requiring BIPAP, she is in respiratory failure, she is using accessory muscles discussed that we can continue all current treatment but I would like to make her more comfortable with Morphine, he agreed made a plan to talk tomorrow morning after I can re-assess her discussed that her prognosis is very poor, I do not see her surviving, he understands there was some confusion about when she was diagnosed with COVID as the H&P stated 01/02 I called [facility], she was diagnosed on 01/09 but was sick prior to that test at this time we will continue antibiotics, dexamethasone, insulin drip, BIPAP, Remdesivir he confirms he would not want further escalation of care with central line, intubation etc. she is outside of the window for convalescent plasma to be effective use Morphine 3mg IV q2 PRN as 2mg IV q4 was not sufficient to make her more comfortable (2) Acute respiratory failure with hypoxia: Continuous BiPAP, using accessory muscles (belly breathing) FiO2 down to 60% and saturations > 90% but without the BIPAP should would not survive she would not do well with High Flow, needs the PEEP no intubation per son will likely make her comfortable tomorrow if she is still on BIPAP (3) Type 2 diabetes mellitus with hyperosmolar hyperglycemic state (HHS): 3L NSS given in ER. Elevated Na. Start 0.5NSS with KCl 40 meq @ 250ml/hr. Insulin IV drip HHS protocol with aim glucose 250-300 BSG improving, cut fluid rate to 100cc/hr today, K is a little high but there is no acidosis she is not eating (4) COVID-19: Dexamethasone 6mg IV, son requesting Remdesivir, will give 200mg dose today discussed with him that she is outside the window for plasma to help discussed that prognosis is very poor (5) Aspiration pneumonia: Given very one sided suspect aspiration. will use Levaquin, stop Cefepime and Flagyl (6) Pleural effusion, right: stable (7) Sepsis associated hypotension: Improved with 3L NSS. Start 0.5NSS with 40 meq KCl @ 250ml/hr. Likely 9- 10L deficit. continue Levaquin Follow up blood and urine cultures - no growth Lactate 4.0 early this morning BP is preserved without needing pressors, son would not want central line or pressors (8) Lactic acidosis: minimal improvement adequate volume resuscitation (9) Chronic steroid use: Stress dose steroids in addition to dexamethasone above for the first 24 hours with hydrocortisone 100mg IV now, then 50mg Q8 (10) Paroxysmal SVT (supraventricular tachycardia): Start amiodarone drip IV with bolus. continue today, no SVT noted (11) Chronic ITP (idiopathic thrombocytopenia): Chronic prednisone use. Stress dose steroids as above. plts are in 50's (12) CLL (chronic lymphocytic leukemia): On no specific treatment for this as an outpatient. WBC is 30 certainly makes her immune suppressed (13) Dementia: Medications on hold while NPO (14) CKD (chronic kidney disease) stage 3, GFR 30-59 ml/min: Surprisingly close to baseline. Granular casts in UA urine is concentrated in taylor check BMP later today and in AM (15) Oral phase dysphagia: Notable history of this. (16) Stress incontinence: Medications on hold while NPO (17) DVT prophylaxis: Heparin 7500 units SQ Q8H Admission and Anticipated Discharge Date Admission Date: January 13, 2020 Subjective patient remains on BIPAP, decreased responsiveness she opened her eyes when I woke her up and talked to her, asked her how she was doing she made a long moaning sound and started to cry I could not get much else from her due to lethargy and being on the BIPAP she was obviously working hard to breath, using abdominal muscles I reviewed chart and reviewed labs I had a long discussion with her son over the phone about goals of care determined through [facility] that she was tested for COVID on 01/09 and positive test result came back on 01/11 her son would like to give her every chance if possible I explained that we will give her dexamethasone, Remdesivir, antibiotics and supportive care discussed that she is in respiratory failure, struggling on BIPAP and uncomfortable, he was okay if I started her on some Morphine for comfort I explained that I felt she would not do well, even though her FiO2 requirements were less and her saturations were > 90% she was working really hard to maintain those saturations, if she was still on BIPAP tomorrow then should move to comfort care told him we will talk tomorrow morning, he agreed discussed that if she gets worse I will call him Review of Systems Review of Systems: Unobtainable due to reduced consciousness (on BIPAP) Physical Exam Constitutional: well developed, well nourished, + acute distress and + frail appearing Neck: trachea midline, no thyromegaly Respiratory: + respiratory distress, + labored breathing and + uses accessory muscles Auscultation: + diminished lung sounds Cardiovascular: RRR, no murmur, no edema Gastrointestinal (Abdomen): normal bowel sounds, soft, nontender, no hepatosplenomegaly Musculoskeletal: Head/Neck/Chest: normocephalic, head atraumatic and neck supple Extremities: + abnormal strength; no clubbing and no petechiae Skin: no rashes, warm and dry Neurologic: CN's II-XI intact bilaterally, moves all extremities and + confused; no focal motor deficits Psychiatric: Orientation: oriented to person; + not alert, + not oriented to place and + not oriented to time Results & Data Results & Data ([facility]) Vital Signs (Past 12 Hours) Vital Signs Temp Pulse Pulse Resp BP Pulse Ox 01/14/20 14:17 63 29 H 99 01/14/20 12:11 36.5 C 64 30 H 103/67 93 01/14/20 11:23 64 29 H 93 01/14/20 09:49 36.3 C L 61 29 H 114/68 98 01/14/20 08:22 36.3 C L 62 27 H 101/61 94 01/14/20 08:16 36.5 C 62 18 115/73 95 01/14/20 08:00 66 01/14/20 07:28 60 28 H 95 01/14/20 05:14 36.6 C 83 32 H 108/66 96 01/14/20 04:01 92/58 L Laboratory Results Laboratory Results - last 24 hr 01/13/20 01/13/20 01/13/20 16:15 16:15 16:15 WBC 37.64 H* RBC 5.04 Hgb 14.5 Hct 47.3 H MCV 93.8 MCH 28.8 MCHC 30.7 L RDW Std Deviation 51.5 H RDW Coeff of [place] 15.1 H Plt Count 79 L MPV 14.1 H Immature Gran % (Auto) Neut % (Auto) Lymph % (Auto) [place] % (Auto) Eos % (Auto) Baso % (Auto) Neut # (Auto) Lymph # (Auto) [place] # (Auto) Eos # (Auto) Baso # (Auto) Immature Gran # (Auto) Neutrophils % (Manual) 56.0 Lymphocytes % (Manual) 41.0 Monocytes % (Manual) 3.0 Neutrophils # (Manual) 21.08 H Total Absolute Neuts 21.08 H Lymphocytes # (Manual) 15.43 H Total Abs Lymphocytes 15.43 H Monocytes # (Manual) 1.13 H Echinocytes VBG pH VBG pCO2 VBG pO2 VBG HCO3 VBG O2 Saturation VBG Base Excess Barometric Pressure Sodium 146 H Potassium 4.0 Chloride 112 H Carbon Dioxide 28 Anion Gap 6.0 BUN 57 H Creatinine 1.14 Est Cr Clr Drug Dosing Not Reportable Est GFR ( Amer) 53.0 Est GFR (Non-Af Amer) 45.7 BUN/Creatinine Ratio 50.4 H Glucose 622 H* POC Glucose Lactate Calcium 7.9 L Phosphorus Magnesium 2.3 Total Bilirubin 1.2 H AST 6 L ALT 7 L Alkaline Phosphatase 107 Troponin I Total Protein 4.8 L Albumin 1.9 L Globulin 2.9 Albumin/Globulin Ratio 0.7 L Lipase 268 Beta-Hydroxybutyric Acd 17.63 H Procalcitonin 0.91 H Urine Color Urine Appearance Urine pH Ur Specific [place] Urine Protein Urine Glucose (UA) Urine Ketones Urine Blood Urine Nitrite Urine Bilirubin Urine Urobilinogen Ur Leukocyte Esterase Urine WBC (Auto) Urine RBC (Auto) U Hyaline Cast (Auto) U Epithel Cells (Auto) Urine Bacteria (Auto) Granular Casts 01/13/20 01/13/20 01/13/20 16:15 17:15 17:15 WBC RBC Hgb Hct MCV MCH MCHC RDW Std Deviation RDW Coeff of [place] Plt Count MPV Immature Gran % (Auto) Neut % (Auto) Lymph % (Auto) [place] % (Auto) Eos % (Auto) Baso % (Auto) Neut # (Auto) Lymph # (Auto) [place] # (Auto) Eos # (Auto) Baso # (Auto) Immature Gran # (Auto) Neutrophils % (Manual) Lymphocytes % (Manual) Monocytes % (Manual) Neutrophils # (Manual) Total Absolute Neuts Lymphocytes # (Manual) Total Abs Lymphocytes Monocytes # (Manual) Echinocytes VBG pH 7.35 L VBG pCO2 47 VBG pO2 43 VBG HCO3 25 VBG O2 Saturation 73.6 VBG Base Excess -1.1 Barometric Pressure 736.4 Sodium Potassium Chloride Carbon Dioxide Anion Gap BUN Creatinine Est Cr Clr Drug Dosing Est GFR ( Amer) Est GFR (Non-Af Amer) BUN/Creatinine Ratio Glucose POC Glucose Lactate 4.4 H* Calcium Phosphorus 3.4 Magnesium Cancelled Total Bilirubin AST ALT Alkaline Phosphatase Troponin I 0.081 H* Total Protein Albumin Globulin Albumin/Globulin Ratio Lipase Beta-Hydroxybutyric Acd Procalcitonin Urine Color Urine Appearance Urine pH Ur Specific [place] Urine Protein Urine Glucose (UA) Urine Ketones Urine Blood Urine Nitrite Urine Bilirubin Urine Urobilinogen Ur Leukocyte Esterase Urine WBC (Auto) Urine RBC (Auto) U Hyaline Cast (Auto) U Epithel Cells (Auto) Urine Bacteria (Auto) Granular Casts 01/13/20 01/13/20 01/13/20 17:15 18:20 18:54 WBC RBC Hgb Hct MCV MCH MCHC RDW Std Deviation RDW Coeff of [place] Plt Count MPV Immature Gran % (Auto) Neut % (Auto) Lymph % (Auto) [place] % (Auto) Eos % (Auto) Baso % (Auto) Neut # (Auto) Lymph # (Auto) [place] # (Auto) Eos # (Auto) Baso # (Auto) Immature Gran # (Auto) Neutrophils % (Manual) Lymphocytes % (Manual) Monocytes % (Manual) Neutrophils # (Manual) Total Absolute Neuts Lymphocytes # (Manual) Total Abs Lymphocytes Monocytes # (Manual) Echinocytes VBG pH Cancelled VBG pCO2 VBG pO2 VBG HCO3 VBG O2 Saturation VBG Base Excess Barometric Pressure Sodium Potassium Chloride Carbon Dioxide Anion Gap BUN Creatinine Est Cr Clr Drug Dosing Est GFR ( Amer) Est GFR (Non-Af Amer) BUN/Creatinine Ratio Glucose POC Glucose 491 H* Lactate Calcium Phosphorus Magnesium Total Bilirubin AST ALT Alkaline Phosphatase Troponin I Total Protein Albumin Globulin Albumin/Globulin Ratio Lipase Beta-Hydroxybutyric Acd Procalcitonin Urine Color Dark Yellow Urine Appearance Cloudy A Urine pH 7.0 Ur Specific [place] 1.024 Urine Protein 3+ H Urine Glucose (UA) 3+ H Urine Ketones Trace H Urine Blood 2+ H Urine Nitrite Negative Urine Bilirubin Negative Urine Urobilinogen Negative Ur Leukocyte Esterase 1+ H Urine WBC (Auto) >30 H Urine RBC (Auto) 5-10 H U Hyaline Cast (Auto) 10-30 H U Epithel Cells (Auto) >30 H Urine Bacteria (Auto) 4+ H Granular Casts 1-5 H 01/13/20 01/13/20 01/13/20 19:54 20:40 21:09 WBC RBC Hgb Hct MCV MCH MCHC RDW Std Deviation RDW Coeff of [place] Plt Count MPV Immature Gran % (Auto) Neut % (Auto) Lymph % (Auto) [place] % (Auto) Eos % (Auto) Baso % (Auto) Neut # (Auto) Lymph # (Auto) [place] # (Auto) Eos # (Auto) Baso # (Auto) Immature Gran # (Auto) Neutrophils % (Manual) Lymphocytes % (Manual) Monocytes % (Manual) Neutrophils # (Manual) Total Absolute Neuts Lymphocytes # (Manual) Total Abs Lymphocytes Monocytes # (Manual) Echinocytes VBG pH VBG pCO2 VBG pO2 VBG HCO3 VBG O2 Saturation VBG Base Excess Barometric Pressure Sodium 148 H Potassium 3.9 Chloride 119 H Carbon Dioxide 22 Anion Gap 8.0 BUN 56 H Creatinine 1.39 H Est Cr Clr Drug Dosing Not Reportable Est GFR ( Amer) 41.7 Est GFR (Non-Af Amer) 36.0 BUN/Creatinine Ratio 40.2 H Glucose 447 H* POC Glucose 399 H* Lactate 5.8 H* Calcium 6.8 L Phosphorus 3.2 Magnesium 1.9 Total Bilirubin AST ALT Alkaline Phosphatase Troponin I Total Protein Albumin Globulin Albumin/Globulin Ratio Lipase Beta-Hydroxybutyric Acd 3.35 H Procalcitonin Urine Color Urine Appearance Urine pH Ur Specific [place] Urine Protein Urine Glucose (UA) Urine Ketones Urine Blood Urine Nitrite Urine Bilirubin Urine Urobilinogen Ur Leukocyte Esterase Urine WBC (Auto) Urine RBC (Auto) U Hyaline Cast (Auto) U Epithel Cells (Auto) Urine Bacteria (Auto) Granular Casts 01/13/20 01/14/20 01/14/20 21:09 00:38 01:21 WBC RBC Hgb Hct MCV MCH MCHC RDW Std Deviation RDW Coeff of [place] Plt Count MPV Immature Gran % (Auto) Neut % (Auto) Lymph % (Auto) [place] % (Auto) Eos % (Auto) Baso % (Auto) Neut # (Auto) Lymph # (Auto) [place] # (Auto) Eos # (Auto) Baso # (Auto) Immature Gran # (Auto) Neutrophils % (Manual) Lymphocytes % (Manual) Monocytes % (Manual) Neutrophils # (Manual) Total Absolute Neuts Lymphocytes # (Manual) Total Abs Lymphocytes Monocytes # (Manual) Echinocytes VBG pH 7.30 L VBG pCO2 VBG pO2 VBG HCO3 VBG O2 Saturation VBG Base Excess Barometric Pressure Sodium 150 H Potassium 4.6 D Chloride 122 H Carbon Dioxide 21 Anion Gap 7.0 BUN 56 H Creatinine 1.22 H Est Cr Clr Drug Dosing 36.9 Est GFR ( Amer) 48.8 Est GFR (Non-Af Amer) 42.1 BUN/Creatinine Ratio 45.7 H Glucose 234 H POC Glucose 254 H Lactate Calcium 6.6 L Phosphorus 2.2 L D Magnesium 1.9 Total Bilirubin AST ALT Alkaline Phosphatase Troponin I Total Protein Albumin Globulin Albumin/Globulin Ratio Lipase Beta-Hydroxybutyric Acd Procalcitonin Urine Color Urine Appearance Urine pH Ur Specific [place] Urine Protein Urine Glucose (UA) Urine Ketones Urine Blood Urine Nitrite Urine Bilirubin Urine Urobilinogen Ur Leukocyte Esterase Urine WBC (Auto) Urine RBC (Auto) U Hyaline Cast (Auto) U Epithel Cells (Auto) Urine Bacteria (Auto) Granular Casts 01/14/20 01/14/20 01/14/20 01:21 01:21 01:54 WBC RBC Hgb Hct MCV MCH MCHC RDW Std Deviation RDW Coeff of [place] Plt Count MPV Immature Gran % (Auto) Neut % (Auto) Lymph % (Auto) [place] % (Auto) Eos % (Auto) Baso % (Auto) Neut # (Auto) Lymph # (Auto) [place] # (Auto) Eos # (Auto) Baso # (Auto) Immature Gran # (Auto) Neutrophils % (Manual) Lymphocytes % (Manual) Monocytes % (Manual) Neutrophils # (Manual) Total Absolute Neuts Lymphocytes # (Manual) Total Abs Lymphocytes Monocytes # (Manual) Echinocytes VBG pH 7.40 VBG pCO2 VBG pO2 VBG HCO3 VBG O2 Saturation VBG Base Excess Barometric Pressure Sodium Potassium Chloride Carbon Dioxide Anion Gap BUN Creatinine Est Cr Clr Drug Dosing Est GFR ( Amer) Est GFR (Non-Af Amer) BUN/Creatinine Ratio Glucose POC Glucose 212 H Lactate 4.0 H* Calcium Phosphorus Magnesium Total Bilirubin AST ALT Alkaline Phosphatase Troponin I Total Protein Albumin Globulin Albumin/Globulin Ratio Lipase Beta-Hydroxybutyric Acd Procalcitonin Urine Color Urine Appearance Urine pH Ur Specific [place] Urine Protein Urine Glucose (UA) Urine Ketones Urine Blood Urine Nitrite Urine Bilirubin Urine Urobilinogen Ur Leukocyte Esterase Urine WBC (Auto) Urine RBC (Auto) U Hyaline Cast (Auto) U Epithel Cells (Auto) Urine Bacteria (Auto) Granular Casts 01/14/20 01/14/20 01/14/20 03:52 05:14 05:30 WBC RBC Hgb Hct MCV MCH MCHC RDW Std Deviation RDW Coeff of [place] Plt Count MPV Immature Gran % (Auto) Neut % (Auto) Lymph % (Auto) [place] % (Auto) Eos % (Auto) Baso % (Auto) Neut # (Auto) Lymph # (Auto) [place] # (Auto) Eos # (Auto) Baso # (Auto) Immature Gran # (Auto) Neutrophils % (Manual) Lymphocytes % (Manual) Monocytes % (Manual) Neutrophils # (Manual) Total Absolute Neuts Lymphocytes # (Manual) Total Abs Lymphocytes Monocytes # (Manual) Echinocytes VBG pH 7.36 VBG pCO2 VBG pO2 VBG HCO3 VBG O2 Saturation VBG Base Excess Barometric Pressure Sodium Potassium Chloride Carbon Dioxide Anion Gap BUN Creatinine Est Cr Clr Drug Dosing Est GFR ( Amer) Est GFR (Non-Af Amer) BUN/Creatinine Ratio Glucose POC Glucose 182 H 176 H Lactate Calcium Phosphorus Magnesium Total Bilirubin AST ALT Alkaline Phosphatase Troponin I Total Protein Albumin Globulin Albumin/Globulin Ratio Lipase Beta-Hydroxybutyric Acd Procalcitonin Urine Color Urine Appearance Urine pH Ur Specific [place] Urine Protein Urine Glucose (UA) Urine Ketones Urine Blood Urine Nitrite Urine Bilirubin Urine Urobilinogen Ur Leukocyte Esterase Urine WBC (Auto) Urine RBC (Auto) U Hyaline Cast (Auto) U Epithel Cells (Auto) Urine Bacteria (Auto) Granular Casts 01/14/20 01/14/20 01/14/20 05:30 06:26 08:14 WBC RBC Hgb Hct MCV MCH MCHC RDW Std Deviation RDW Coeff of [place] Plt Count MPV Immature Gran % (Auto) Neut % (Auto) Lymph % (Auto) [place] % (Auto) Eos % (Auto) Baso % (Auto) Neut # (Auto) Lymph # (Auto) [place] # (Auto) Eos # (Auto) Baso # (Auto) Immature Gran # (Auto) Neutrophils % (Manual) Lymphocytes % (Manual) Monocytes % (Manual) Neutrophils # (Manual) Total Absolute Neuts Lymphocytes # (Manual) Total Abs Lymphocytes Monocytes # (Manual) Echinocytes VBG pH VBG pCO2 VBG pO2 VBG HCO3 VBG O2 Saturation VBG Base Excess Barometric Pressure Sodium 147 H Potassium Chloride 119 H Carbon Dioxide 21 Anion Gap 7.0 BUN 53 H Creatinine 1.07 Est Cr Clr Drug Dosing 42.1 Est GFR ( Amer) 57.2 Est GFR (Non-Af Amer) 49.3 BUN/Creatinine Ratio 49.6 H Glucose 206 H POC Glucose 287 H 303 H* Lactate Calcium 6.6 L Phosphorus 2.5 Magnesium Total Bilirubin AST ALT Alkaline Phosphatase Troponin I Total Protein Albumin Globulin Albumin/Globulin Ratio Lipase Beta-Hydroxybutyric Acd Procalcitonin Urine Color Urine Appearance Urine pH Ur Specific [place] Urine Protein Urine Glucose (UA) Urine Ketones Urine Blood Urine Nitrite Urine Bilirubin Urine Urobilinogen Ur Leukocyte Esterase Urine WBC (Auto) Urine RBC (Auto) U Hyaline Cast (Auto) U Epithel Cells (Auto) Urine Bacteria (Auto) Granular Casts 01/14/20 01/14/20 01/14/20 08:58 08:58 08:58 WBC 31.23 H* RBC 4.10 L Hgb 11.8 L Hct 36.9 L MCV 90.0 MCH 28.8 MCHC 32.0 RDW Std Deviation 49.3 H RDW Coeff of [place] 15.0 H Plt Count 52 L MPV 13.5 H Immature Gran % (Auto) 0.6 Neut % (Auto) 53.5 Lymph % (Auto) 45.4 [place] % (Auto) 0.4 Eos % (Auto) 0.0 Baso % (Auto) 0.1 Neut # (Auto) 16.73 H Lymph # (Auto) 14.17 H [place] # (Auto) 0.12 Eos # (Auto) 0.00 Baso # (Auto) 0.03 Immature Gran # (Auto) 0.18 H Neutrophils % (Manual) Lymphocytes % (Manual) Monocytes % (Manual) Neutrophils # (Manual) Total Absolute Neuts Lymphocytes # (Manual) Total Abs Lymphocytes Monocytes # (Manual) Echinocytes 1+ VBG pH 7.33 L VBG pCO2 VBG pO2 VBG HCO3 VBG O2 Saturation VBG Base Excess Barometric Pressure Sodium 142 Potassium 5.6 H D Chloride 116 H Carbon Dioxide 21 Anion Gap 5.0 BUN 51 H Creatinine 1.18 Est Cr Clr Drug Dosing 38.2 Est GFR ( Amer) 50.8 Est GFR (Non-Af Amer) 43.8 BUN/Creatinine Ratio 43.0 H Glucose 346 H* POC Glucose Lactate Calcium 6.7 L Phosphorus 3.1 Magnesium 1.7 L Total Bilirubin AST ALT Alkaline Phosphatase Troponin I Total Protein Albumin Globulin Albumin/Globulin Ratio Lipase Beta-Hydroxybutyric Acd 1.53 Procalcitonin Urine Color Urine Appearance Urine pH Ur Specific [place] Urine Protein Urine Glucose (UA) Urine Ketones Urine Blood Urine Nitrite Urine Bilirubin Urine Urobilinogen Ur Leukocyte Esterase Urine WBC (Auto) Urine RBC (Auto) U Hyaline Cast (Auto) U Epithel Cells (Auto) Urine Bacteria (Auto) Granular Casts 01/14/20 01/14/20 01/14/20 09:41 10:59 11:56 WBC RBC Hgb Hct MCV MCH MCHC RDW Std Deviation RDW Coeff of [place] Plt Count MPV Immature Gran % (Auto) Neut % (Auto) Lymph % (Auto) [place] % (Auto) Eos % (Auto) Baso % (Auto) Neut # (Auto) Lymph # (Auto) [place] # (Auto) Eos # (Auto) Baso # (Auto) Immature Gran # (Auto) Neutrophils % (Manual) Lymphocytes % (Manual) Monocytes % (Manual) Neutrophils # (Manual) Total Absolute Neuts Lymphocytes # (Manual) Total Abs Lymphocytes Monocytes # (Manual) Echinocytes VBG pH VBG pCO2 VBG pO2 VBG HCO3 VBG O2 Saturation VBG Base Excess Barometric Pressure Sodium Potassium Chloride Carbon Dioxide Anion Gap BUN Creatinine Est Cr Clr Drug Dosing Est GFR ( Amer) Est GFR (Non-Af Amer) BUN/Creatinine Ratio Glucose POC Glucose 372 H* 322 H* 352 H* Lactate Calcium Phosphorus Magnesium Total Bilirubin AST ALT Alkaline Phosphatase Troponin I Total Protein Albumin Globulin Albumin/Globulin Ratio Lipase Beta-Hydroxybutyric Acd Procalcitonin Urine Color Urine Appearance Urine pH Ur Specific [place] Urine Protein Urine Glucose (UA) Urine Ketones Urine Blood Urine Nitrite Urine Bilirubin Urine Urobilinogen Ur Leukocyte Esterase Urine WBC (Auto) Urine RBC (Auto) U Hyaline Cast (Auto) U Epithel Cells (Auto) Urine Bacteria (Auto) Granular Casts 11/13/20 11/13/20 11/13/20 11:57 11:58 12:51 WBC RBC Hgb Hct MCV MCH MCHC RDW Std Deviation RDW Coeff of [place] Plt Count MPV Immature Gran % (Auto) Neut % (Auto) Lymph % (Auto) [place] % (Auto) Eos % (Auto) Baso % (Auto) Neut # (Auto) Lymph # (Auto) [place] # (Auto) Eos # (Auto) Baso # (Auto) Immature Gran # (Auto) Neutrophils % (Manual) Lymphocytes % (Manual) Monocytes % (Manual) Neutrophils # (Manual) Total Absolute Neuts Lymphocytes # (Manual) Total Abs Lymphocytes Monocytes # (Manual) Echinocytes VBG pH VBG pCO2 VBG pO2 VBG HCO3 VBG O2 Saturation VBG Base Excess Barometric Pressure Sodium 140 Potassium 5.6 H Chloride 114 H Carbon Dioxide 19 L Anion Gap 7.0 BUN 50 H Creatinine 1.06 Est Cr Clr Drug Dosing 42.5 Est GFR ( Amer) 57.8 Est GFR (Non-Af Amer) 49.9 BUN/Creatinine Ratio 47.0 H Glucose 303 H* POC Glucose 470 H* 394 H* Lactate Calcium 6.4 L Phosphorus 2.2 L Magnesium 1.8 Total Bilirubin AST ALT Alkaline Phosphatase Troponin I Total Protein Albumin Globulin Albumin/Globulin Ratio Lipase Beta-Hydroxybutyric Acd 0.63 Procalcitonin Urine Color Urine Appearance Urine pH Ur Specific [place] Urine Protein Urine Glucose (UA) Urine Ketones Urine Blood Urine Nitrite Urine Bilirubin Urine Urobilinogen Ur Leukocyte Esterase Urine WBC (Auto) Urine RBC (Auto) U Hyaline Cast (Auto) U Epithel Cells (Auto) Urine Bacteria (Auto) Granular Casts 01/14/20 01/14/20 01/14/20 12:51 13:08 14:17 WBC RBC Hgb Hct MCV MCH MCHC RDW Std Deviation RDW Coeff of [place] Plt Count MPV Immature Gran % (Auto) Neut % (Auto) Lymph % (Auto) [place] % (Auto) Eos % (Auto) Baso % (Auto) Neut # (Auto) Lymph # (Auto) [place] # (Auto) Eos # (Auto) Baso # (Auto) Immature Gran # (Auto) Neutrophils % (Manual) Lymphocytes % (Manual) Monocytes % (Manual) Neutrophils # (Manual) Total Absolute Neuts Lymphocytes # (Manual) Total Abs Lymphocytes Monocytes # (Manual) Echinocytes VBG pH 7.33 L VBG pCO2 VBG pO2 VBG HCO3 VBG O2 Saturation VBG Base Excess Barometric Pressure Sodium Potassium Chloride Carbon Dioxide Anion Gap BUN Creatinine Est Cr Clr Drug Dosing Est GFR ( Amer) Est GFR (Non-Af Amer) BUN/Creatinine Ratio Glucose POC Glucose 307 H* 230 H Lactate Calcium Phosphorus Magnesium Total Bilirubin AST ALT Alkaline Phosphatase Troponin I Total Protein Albumin Globulin Albumin/Globulin Ratio Lipase Beta-Hydroxybutyric Acd Procalcitonin Urine Color Urine Appearance Urine pH Ur Specific [place] Urine Protein Urine Glucose (UA) Urine Ketones Urine Blood Urine Nitrite Urine Bilirubin Urine Urobilinogen Ur Leukocyte Esterase Urine WBC (Auto) Urine RBC (Auto) U Hyaline Cast (Auto) U Epithel Cells (Auto) Urine Bacteria (Auto) Granular Casts 01/14/20 14:20 WBC RBC Hgb Hct MCV MCH MCHC RDW Std Deviation RDW Coeff of [place] Plt Count MPV Immature Gran % (Auto) Neut % (Auto) Lymph % (Auto) [place] % (Auto) Eos % (Auto) Baso % (Auto) Neut # (Auto) Lymph # (Auto) [place] # (Auto) Eos # (Auto) Baso # (Auto) Immature Gran # (Auto) Neutrophils % (Manual) Lymphocytes % (Manual) Monocytes % (Manual) Neutrophils # (Manual) Total Absolute Neuts Lymphocytes # (Manual) Total Abs Lymphocytes Monocytes # (Manual) Echinocytes VBG pH VBG pCO2 VBG pO2 VBG HCO3 VBG O2 Saturation VBG Base Excess Barometric Pressure Sodium Potassium Chloride Carbon Dioxide Anion Gap BUN Creatinine Est Cr Clr Drug Dosing Est GFR ( Amer) Est GFR (Non-Af Amer) BUN/Creatinine Ratio Glucose POC Glucose 216 H Lactate Calcium Phosphorus Magnesium Total Bilirubin AST ALT Alkaline Phosphatase Troponin I Total Protein Albumin Globulin Albumin/Globulin Ratio Lipase Beta-Hydroxybutyric Acd Procalcitonin Urine Color Urine Appearance Urine pH Ur Specific [place] Urine Protein Urine Glucose (UA) Urine Ketones Urine Blood Urine Nitrite Urine Bilirubin Urine Urobilinogen Ur Leukocyte Esterase Urine WBC (Auto) Urine RBC (Auto) U Hyaline Cast (Auto) U Epithel Cells (Auto) Urine Bacteria (Auto) Granular Casts Medications Administered Current Inpatient Medications Dextrose (Dextrose 50% 50 Ml Syringe) 25 - 50 ml IV UD PRN; Protocol PRN Reason: Hypoglycemia Protocol Stop: 02/13/20 01:14 Glucagon (Glucagon For Inj 1 Mg Vial) 1 mg SQ UD PRN; Protocol PRN Reason: Hypoglycemia Protocol Stop: 02/13/20 01:14 Glucose (Glucose 40% Gel 15 Gm Tube) 15 - 30 gm PO UD PRN; Protocol PRN Reason: Hypoglycemia Protocol Stop: 02/13/20 01:14 Glucose (Glucose 10 Tabs/Tube) 4 - 8 tabs PO UD PRN; Protocol PRN Reason: Hypoglycemia Protocol Stop: 02/13/20 01:14 Heparin Sodium (Porcine) (Heparin Sod 5,000 Unit/0.5 Ml Vial) 7,500 units SQ Q8 FOSTER Stop: 02/13/20 05:59 Last Admin: 01/14/20 14:43 Dose: 7,500 units Documented by: Insulin Human Regular 250 (units/ Sodium Chloride) 250 mls @ 16.5 mls/hr IV .[id number] FOSTER; Protocol Stop: 02/12/20 16:59 Last Titration: 01/14/20 14:35 Dose: 16.5 units/hr, 16.5 mls/hr Documented by: Amiodarone HCl/Dextrose (Nexterone / D5w) 360 mg in 200 mls @ 16.667 mls/hr IV .Q12H FOSTER Stop: 02/13/20 00:26 Last Admin: 01/14/20 14:43 Dose: 0.5 mg/min, 16.7 mls/hr Documented by: Dexamethasone Sodium Phosphate (6 mg/ Syringe) 1.5 mls @ 1 mls/min IV QAM FOSTER Stop: 01/22/20 09:02 Last Admin: 01/14/20 09:44 Dose: 1 mls/min Documented by: Potassium Chloride/Dextrose/Sod Cl (D5w And 1/4nss + 20meq Kcl) 20 meq in 1,000 mls @ 100 mls/hr IV .Q10H FOSTER Stop: 01/14/20 15:12 Last Admin: 01/14/20 14:42 Dose: 250 mls/hr Documented by: Levofloxacin/Dextrose (Levaquin/D5w) 750 mg in 150 mls @ 100 mls/hr IV Q48H FOSTER Stop: 01/20/20 17:59 Remdesivir 100 mg/ Sodium (Chloride) 250 mls @ 250 mls/hr IV Q24H FOSTER; Protocol Stop: 01/18/20 12:59 Hydrocortisone Sodium (Succinate 50 mg/ Syringe) 1 mls @ 4 mls/min IV Q8H FOSTER Stop: 01/15/20 00:01 Insulin Aspart (Insulin Aspart 100 Units/Ml 3 Ml Pen) 0 units SC ACHS FOSTER Stop: 02/12/20 20:59 Last Admin: 01/14/20 12:38 Dose: Not Given Documented by: Miscellaneous (Carbohydrates For Hypoglycemia ) 15 - 30 gm PO UD PRN PRN Reason: Hypoglycemia Treatment Stop: 02/13/20 01:14 Miscellaneous Information (Pharmacy Glycemic Mgmt Consult) 1 ea N/A UD PRN PRN Reason: Consult Stop: 02/13/20 01:11 Morphine Sulfate (Morphine Sulfate 4 Mg/Ml 1 Ml Carp\Vial) 3 mg IV Q2H PRN PRN Reason: Dyspnea Stop: 01/28/20 14:55 Sodium Chloride (Sodium Chloride 0.9% 10ml Flush) 30 ml IV Q24H FOSTER Stop: 01/18/20 12:01 Last Admin: 01/14/20 13:16 Dose: 30 ml Documented by: PG Care Time/CCT Total # of Minutes Spent Total Time Spent: 50 Total Time Spent with Patient: Total time spent is greater than 50% in coordination of care (as documented) at patient's floor/unit and/or counseling patient: two conversations with son on the phone two visits to patient's room discussed with RN and pharmacy time reviewing charts and documenting plan Coding Level of Care Code 91076 Subseq Hosp Care Lvl 3 Diagnoses Goals of care, counseling/discussion Z71.89 Acute respiratory failure with hypoxia J96.01 Type 2 diabetes mellitus with hyperosmolar hyperglycemic state (HHS) E11.00; E11.65 COVID-19 U07.1 Aspiration pneumonia J69.0 Pleural effusion, right J90 Sepsis associated hypotension A41.9; I95.9 Lactic acidosis E87.2 Chronic steroid use Paroxysmal SVT (supraventricular tachycardia) I47.1 Chronic ITP (idiopathic thrombocytopenia) D69.3 CLL (chronic lymphocytic leukemia) C91.10 Dementia F03.90 CKD (chronic kidney disease) stage 3, GFR 30-59 ml/min N18.30 Oral phase dysphagia R13.11 Stress incontinence N39.3 DVT prophylaxis Z29.9
[2020-01-15] MEDS: HYDROCORTISONE SOD 50 MG in SYRINGE 0 ML IV SCH (00:23)
[2020-01-15] MEDS: AMIODARONE / D5W 360 MG/200 ML BAG IV SCH (00:23)
[2020-01-15] MEDS: MoRPHine SULFATE 4 MG/ML 1 ML CARP\\VIAL IV PRN ×3 (03:38→14:46)
[2020-01-15] MEDS: D5W AND 1/4NSS + 20MEQ KCL 20 MEQ/1,000 ML BAG IV SCH (03:42)
[2020-01-15] MEDS ORDERED: INSULIN ASPART 100 UNITS/ML 3 ML PEN SC SCH (04:00)
[2020-01-15] MEDS: INSULIN ASPART 100 UNITS/ML 3 ML PEN SC SCH ×6 (04:12→23:55)
[2020-01-15] MEDS: HEPARIN SOD 5,000 UNIT/0.5 ML VIAL SQ SCH ×3 (04:13→19:26)
[2020-01-15 07:12] LABS: Estimated Average Glucose 260 mg/dl; Hemoglobin A1C 10.7 % (4.5-5.6)
[2020-01-15] MEDS: DEXAMETHASONE SOD PHOSPHATE 6 MG in SYRINGE 0 ML IV SCH (08:08)
[2020-01-15 08:39] LABS: Mean Corpuscular Hgb Conc 33.7 g/dL (32-36)
[2020-01-15 08:48] LABS: Hematocrit (blood only) 36.2 % (37-47); Hemoglobin 12.2 g/dL (12.0-16.0); Mean Corpuscular Hemoglobin 29.3 pg (25-34); Mean Corpuscular Volume 86.8 fL (80-100); RDW Standard Deviation 47.7 fL (36.4-46.3); Red Blood Count 4.17 M/uL (4.2-5.4); White Blood Count 29.43 K/uL (4.8-10.8)
[2020-01-15 08:55] LABS: Basophils # (auto) 0.01 K/uL (0-0.2); Immature Granulocytes # (auto) 0.35 K/uL (0.00-0.02); Immature Granulocytes % (auto) 1.2 %; Lymphocytes # (auto) 10.59 K/uL (1.2-3.4); Monocytes # (auto) 0.15 K/uL (0.11-0.59); Monocytes % (auto) 0.5 %; Neutrophils # (auto) 18.33 K/uL (1.4-6.5); Neutrophils % (auto) 62.3 %; Platelet Count 50 K/uL (130-400); Platelet Estimate SIGNIFIC DECREASED (Normal); Smudge Cells Present
[2020-01-15 09:07] LABS: D Dimer 5610 ug/L FEU (0-500)
[2020-01-15] MEDS ORDERED: INSULIN GLARGINE SOLOSTAR 100 UNITS/ML 3 ML PEN SC ONE ×2 (09:30)
[2020-01-15 09:41] LABS: Albumin Level 1.3 gm/dl (3.4-5.0); BUN Creatinine Ratio 48.6 (10-20); Bilirubin Direct 0.4 mg/dl (0-0.2); Calcium 6.9 mg/dl (8.5-10.1); Creatinine Clr Calc Pharmacy 54.1 ml/min; Est GFR (African American) 73.4; Est GFR (Non-African American) 63.4; Potassium 5.9 mmol/L (3.5-5.1); Total Protein 4.1 gm/dl (6.4-8.2)
[2020-01-15 09:48] LABS: Bilirubin,Total 0.7 mg/dl (0.2-1); Ferritin 1834.7 ng/ml (8-388)
[2020-01-15] MEDS ORDERED: D5W AND 1/2NSS 1,000 ML IV SCH (10:30)
--- NOTE | 2020-01-15 11:22 | Pharmacy Report ---
Pharmacy Glycemic Short Note 2 - Date of Service January 15, 2020 - Glycemic Short BSG Results (Last 24 hours): 01/14/20 01/14/20 01/14/20 11:56 11:57 11:58 Glucose POC Glucose 352 H* 470 H* 394 H* 01/14/20 01/14/20 01/14/20 12:51 13:08 14:17 Glucose 303 H* POC Glucose 307 H* 230 H 01/14/20 01/14/20 01/14/20 14:20 15:40 16:33 Glucose POC Glucose 216 H 184 H 257 H 01/14/20 01/14/20 01/14/20 17:45 18:46 20:15 Glucose POC Glucose 180 H 141 H 118 H 01/14/20 01/15/20 01/15/20 23:35 03:45 07:16 Glucose POC Glucose 156 H 186 H 242 H 01/15/20 01/15/20 08:30 11:00 Glucose 228 H POC Glucose 213 H OUTPATIENT ANTIDIABETIC REGIMEN: * A1c = 10.7% on 01/15/20 (increased from 6.3% on 10/07/19) * Novolog SSI * of note, pt on prednisone 10 mg daily ASSESSMENT: * Emma was started on an IV insulin infusion on 01/12 due to HHS. * She is currently receiving levaquin IV for dual coverage of pulm infection and GNB bacteremia as well as remdesivir & dexamethasone IV for COVID-19. * Her insulin infusion was held 01/13 around 1845. Prior to this it was infusing at 17.4 units/hr. The infusion remained on hold overnight. * Fasting BSG this AM = 242 mg/dL. Patient did receive a one time dose of Lantus yesterday. She will likely require much more aggressive dosing today since infusion has been on hold and she remains on high dose IV steroids. Will give a one time dose of 40 units (weight/stress 3). * Post prandial elevation is anticipated with IV steroids, however patient is NPO therefore elevation may not be as dramatic compared to if she were eating. Continue Novolog per scale q4h until glycemic control has improved. * Further dosing may be adjusted based on goals of care. There are talks of possible comfort care measures in the near future. PLAN FOR INPATIENT GLYCEMIC CONTROL: * Hold outpatient oral diabetes medications * Basal insulin * Lantus 40 units SQ x 1 dose * Bolus insulin * NovoLog per scale q4h * Decrease to Goal Range: Low 120 mg/dL - High 150 mg/dL * Correction Factor: 20 mg/dL/unit * Nutritional / Prandial insulin per carb ratio of 1 unit per 7 grams CHO consumed
[2020-01-15] MEDS ORDERED: REMDESIVIR 100 MG in SODIUM CHLORIDE 0.9% 230 ML IV SCH (12:00)
--- NOTE | 2020-01-15 12:49 | Hospitalist Progress Note ---
Date of Service January 15, 2020 Assessment & Plan (1) Goals of care, counseling/discussion: talked with patient's son Lopez over the phone on 01/13 and 01/14 discussed that patient is still requiring BIPAP, she is in respiratory failure, she is using accessory muscles he wants to continue to give her a chance to beat COVID 19 infection we discussed realistic goals, that it takes a week to weeks for someone her age and functional state to recover and that it is not a guarantee he agrees with using Morphine to ensure her comfort labs are stable today, making urine I discussed that if we cannot get her off BIPAP tomorrow then we should consider comfort she cannot eat, cannot take medications in this state at this time we will continue antibiotics, dexamethasone, insulin drip, BIPAP, Remdesivir he confirms he would not want further escalation of care with central line, intubation etc. she is outside of the window for convalescent plasma to be effective use Morphine 3mg IV q2 PRN for comfort while on BIPAP (2) Acute respiratory failure with hypoxia: Continuous BiPAP, using accessory muscles (belly breathing), paradoxical breathing FiO2 down to 50% and saturations > 90%, BIPAP 02/06 she would not do well with High Flow, needs the PEEP no intubation per son use Morphine 3mg IV for comfort, patient stresses that he wants her comfortable will discuss full comfort care tomorrow (3) Type 2 diabetes mellitus with hyperosmolar hyperglycemic state (HHS): 3L NSS given in ER. Elevated Na. Start 0.5NSS with KCl 40 meq @ 250ml/hr. Insulin IV drip HHS protocol with aim glucose 250-300 sugars in 200's, no signs of DKA K is high at 5.9, will stop K in fluids, continue D5W 1/2 NSS at 100cc/hr (4) COVID-19: Dexamethasone 6mg IV, son requesting Remdesivir, will give 200mg dose on 01/13 and then 100mg daily x 4 days discussed with him that she is outside the window for plasma to help discussed that prognosis is very poor, still on BIPAP discussed that COVID 19 can take weeks to recover from and she does not have that type of strength, she cannot take in nutrition while on BIPAP (5) Aspiration pneumonia: Given very one sided suspect aspiration. will use Levaquin x 5 days no fever, WBC always elevated due to CLL (6) Pleural effusion, right: stable (7) Sepsis associated hypotension: Improved with 3L NSS. Start 0.5NSS with 40 meq KCl @ 250ml/hr. Likely 9- 10L deficit. continue Levaquin Follow up blood and urine cultures - no growth Lactate down to 2.0 today BP is preserved without needing pressors, son would not want central line or pressors (8) Lactic acidosis: down to 2.0 today adequate volume resuscitation (9) Chronic steroid use: stop stress dose steroids, received 48 hours worth (10) Paroxysmal SVT (supraventricular tachycardia): no further SVT will stop the Amiodarone drip and observe since she is now stable (11) Chronic ITP (idiopathic thrombocytopenia): Chronic prednisone use. Stress dose steroids as above. plts are in 50's, will use Heparin cautiously for DVT prophylaxis as COVID patients at higher risk for DVT (12) CLL (chronic lymphocytic leukemia): On no specific treatment for this as an outpatient. WBC is 29 certainly makes her immune suppressed (13) Dementia: Medications on hold while NPO per son she has short term memory issues (14) CKD (chronic kidney disease) stage 3, GFR 30-59 ml/min: Surprisingly close to baseline. Granular casts in UA Cr stable at 0.87 and making clear urine via taylor (15) Oral phase dysphagia: Notable history of this. (16) Stress incontinence: Medications on hold while NPO (17) DVT prophylaxis: Heparin 7500 units SQ Q8H Admission and Anticipated Discharge Date Admission Date: January 13, 2020 Subjective patient remains on BIPAP with paradoxical breathing she has eyes closed most of the time when you wake her she opens eyes to voice, she clearly looks scared and won't speak any answers discussed her history with her son, he said she has been at [facility] for 10 years her dementia stemmed from a stroke she had 10 years ago, she has short term memory issues, gets frightened easily with any changes in environment he is not surprised that she is scared we discussed that BIPAP is not comfortable, that I do not see her coming off BIPAP quickly as wanted to know how long he would want her on the BIPAP he stressed that as long as she is comfortable he wants to continue to give her a chance to beat this I explained that it typically takes weeks for someone in her baseline condition to pull through, I have concerns that she won't have the strength as long as she is on BIPAP she cannot eat or get nourishment discussed the labs today, Cr is stable, making more urine, K is up to 5.9 and will stop it in fluids sugars still requiring insulin drip he continues to be in agreement with Morphine for comfort while on BIPAP I instructed RN to make sure she is comfortable we will talk tomorrow morning unless things change drastically Review of Systems Review of Systems: Unobtainable due to cognitive status and Unobtainable due to reduced consciousness Physical Exam Constitutional: well developed, well nourished and + frail appearing Neck: trachea midline, no thyromegaly Respiratory: + labored breathing and + uses accessory muscles Auscultation: + diminished lung sounds Cardiovascular: RRR, no murmur, no edema Gastrointestinal (Abdomen): normal bowel sounds, soft, nontender, no hepatosplenomegaly Musculoskeletal: Head/Neck/Chest: normocephalic, head atraumatic and neck supple Extremities: + abnormal strength; no clubbing and no petechiae Skin: no rashes, warm and dry Neurologic: CN's II-XI intact bilaterally, moves all extremities and + confused; no focal motor deficits Psychiatric: Orientation: oriented to person; + not alert, + not oriented to place and + not oriented to time Results & Data Results & Data ([facility]) Vital Signs (Past 12 Hours) Vital Signs Temp Pulse Pulse Resp BP BP Pulse Ox 01/15/20 11:57 36.4 C L 80 22 111/74 95 01/15/20 09:10 72 01/15/20 07:53 74 21 95 01/15/20 07:52 37.0 C 74 22 113/55 L 95 01/15/20 03:49 36.6 C 72 20 104/53 L 90 01/15/20 02:26 70 28 H 89 L Laboratory Results Laboratory Results - last 24 hr 01/14/20 01/14/20 01/14/20 12:51 12:51 13:08 WBC RBC Hgb Hct MCV MCH MCHC RDW Std Deviation RDW Coeff of [place] Plt Count Immature Gran % (Auto) Neut % (Auto) Lymph % (Auto) Ada % (Auto) Eos % (Auto) Baso % (Auto) Neut # (Auto) Lymph # (Auto) Ada # (Auto) Eos # (Auto) Baso # (Auto) Immature Gran # (Auto) Smudge Cells Platelet Estimate D-Dimer VBG pH 7.33 L Sodium 140 Potassium 5.6 H Chloride 114 H Carbon Dioxide 19 L Anion Gap 7.0 BUN 50 H Creatinine 1.06 Est Cr Clr Drug Dosing 42.5 Est GFR ( Amer) 57.8 Est GFR (Non-Af Amer) 49.9 BUN/Creatinine Ratio 47.0 H Glucose 303 H* POC Glucose 307 H* Estimat Average Glucose Hemoglobin A1c Lactate Calcium 6.4 L Phosphorus 2.2 L Magnesium 1.8 Ferritin Total Bilirubin Direct Bilirubin AST ALT Alkaline Phosphatase Total Protein Albumin Beta-Hydroxybutyric Acd 0.63 Nasal Screen MRSA (PCR) 01/14/20 01/14/20 01/14/20 14:17 14:20 15:40 WBC RBC Hgb Hct MCV MCH MCHC RDW Std Deviation RDW Coeff of [place] Plt Count Immature Gran % (Auto) Neut % (Auto) Lymph % (Auto) Ada % (Auto) Eos % (Auto) Baso % (Auto) Neut # (Auto) Lymph # (Auto) Ada # (Auto) Eos # (Auto) Baso # (Auto) Immature Gran # (Auto) Smudge Cells Platelet Estimate D-Dimer VBG pH Sodium Potassium Chloride Carbon Dioxide Anion Gap BUN Creatinine Est Cr Clr Drug Dosing Est GFR ( Amer) Est GFR (Non-Af Amer) BUN/Creatinine Ratio Glucose POC Glucose 230 H 216 H 184 H Estimat Average Glucose Hemoglobin A1c Lactate Calcium Phosphorus Magnesium Ferritin Total Bilirubin Direct Bilirubin AST ALT Alkaline Phosphatase Total Protein Albumin Beta-Hydroxybutyric Acd Nasal Screen MRSA (PCR) 01/14/20 01/14/20 01/14/20 16:33 17:45 18:46 WBC RBC Hgb Hct MCV MCH MCHC RDW Std Deviation RDW Coeff of [place] Plt Count Immature Gran % (Auto) Neut % (Auto) Lymph % (Auto) Ada % (Auto) Eos % (Auto) Baso % (Auto) Neut # (Auto) Lymph # (Auto) Ada # (Auto) Eos # (Auto) Baso # (Auto) Immature Gran # (Auto) Smudge Cells Platelet Estimate D-Dimer VBG pH Sodium Potassium Chloride Carbon Dioxide Anion Gap BUN Creatinine Est Cr Clr Drug Dosing Est GFR ( Amer) Est GFR (Non-Af Amer) BUN/Creatinine Ratio Glucose POC Glucose 257 H 180 H 141 H Estimat Average Glucose Hemoglobin A1c Lactate Calcium Phosphorus Magnesium Ferritin Total Bilirubin Direct Bilirubin AST ALT Alkaline Phosphatase Total Protein Albumin Beta-Hydroxybutyric Acd Nasal Screen MRSA (PCR) 01/14/20 01/14/20 01/15/20 20:15 23:35 00:27 WBC RBC Hgb Hct MCV MCH MCHC RDW Std Deviation RDW Coeff of [place] Plt Count Immature Gran % (Auto) Neut % (Auto) Lymph % (Auto) Ada % (Auto) Eos % (Auto) Baso % (Auto) Neut # (Auto) Lymph # (Auto) Ada # (Auto) Eos # (Auto) Baso # (Auto) Immature Gran # (Auto) Smudge Cells Platelet Estimate D-Dimer VBG pH Sodium Potassium Chloride Carbon Dioxide Anion Gap BUN Creatinine Est Cr Clr Drug Dosing Est GFR ( Amer) Est GFR (Non-Af Amer) BUN/Creatinine Ratio Glucose POC Glucose 118 H 156 H Estimat Average Glucose Hemoglobin A1c Lactate 2.3 H* Calcium Phosphorus Magnesium Ferritin Total Bilirubin Direct Bilirubin AST ALT Alkaline Phosphatase Total Protein Albumin Beta-Hydroxybutyric Acd Nasal Screen MRSA (PCR) 01/15/20 01/15/20 01/15/20 00:34 03:45 07:16 WBC RBC Hgb Hct MCV MCH MCHC RDW Std Deviation RDW Coeff of [place] Plt Count Immature Gran % (Auto) Neut % (Auto) Lymph % (Auto) Ada % (Auto) Eos % (Auto) Baso % (Auto) Neut # (Auto) Lymph # (Auto) Ada # (Auto) Eos # (Auto) Baso # (Auto) Immature Gran # (Auto) Smudge Cells Platelet Estimate D-Dimer VBG pH Sodium Potassium Chloride Carbon Dioxide Anion Gap BUN Creatinine Est Cr Clr Drug Dosing Est GFR ( Amer) Est GFR (Non-Af Amer) BUN/Creatinine Ratio Glucose POC Glucose 186 H 242 H Estimat Average Glucose 260 Hemoglobin A1c 10.7 H Lactate Calcium Phosphorus Magnesium Ferritin Total Bilirubin Direct Bilirubin AST ALT Alkaline Phosphatase Total Protein Albumin Beta-Hydroxybutyric Acd Nasal Screen MRSA (PCR) 01/15/20 01/15/20 01/15/20 08:30 08:30 08:30 WBC 29.43 H RBC 4.17 L Hgb 12.2 Hct 36.2 L MCV 86.8 MCH 29.3 MCHC 33.7 RDW Std Deviation 47.7 H RDW Coeff of [place] 15.0 H Plt Count 50 L Immature Gran % (Auto) 1.2 Neut % (Auto) 62.3 Lymph % (Auto) 36.0 Ada % (Auto) 0.5 Eos % (Auto) 0.0 Baso % (Auto) 0.0 Neut # (Auto) 18.33 H Lymph # (Auto) 10.59 H Ada # (Auto) 0.15 Eos # (Auto) 0.00 Baso # (Auto) 0.01 Immature Gran # (Auto) 0.35 H Smudge Cells Present Platelet Estimate SIGNIFIC DECREASED D-Dimer 5610 H* VBG pH Sodium 136 Potassium 5.9 H Chloride 112 H Carbon Dioxide 19 L Anion Gap 5.0 BUN 42 H Creatinine 0.87 Est Cr Clr Drug Dosing 54.1 Est GFR ( Amer) 73.4 Est GFR (Non-Af Amer) 63.4 BUN/Creatinine Ratio 48.6 H Glucose 228 H POC Glucose Estimat Average Glucose Hemoglobin A1c Lactate Calcium 6.9 L Phosphorus Magnesium Ferritin 1834.7 H Total Bilirubin 0.7 D Direct Bilirubin 0.4 H AST 16 ALT 35 Alkaline Phosphatase 100 Total Protein 4.1 L Albumin 1.3 L Beta-Hydroxybutyric Acd Nasal Screen MRSA (PCR) 01/15/20 01/15/20 01/15/20 08:30 08:45 11:00 WBC RBC Hgb Hct MCV MCH MCHC RDW Std Deviation RDW Coeff of [place] Plt Count Immature Gran % (Auto) Neut % (Auto) Lymph % (Auto) Ada % (Auto) Eos % (Auto) Baso % (Auto) Neut # (Auto) Lymph # (Auto) Ada # (Auto) Eos # (Auto) Baso # (Auto) Immature Gran # (Auto) Smudge Cells Platelet Estimate D-Dimer VBG pH Sodium Potassium Chloride Carbon Dioxide Anion Gap BUN Creatinine Est Cr Clr Drug Dosing Est GFR ( Amer) Est GFR (Non-Af Amer) BUN/Creatinine Ratio Glucose POC Glucose 213 H Estimat Average Glucose Hemoglobin A1c Lactate 2.0 Calcium Phosphorus Magnesium Ferritin Total Bilirubin Direct Bilirubin AST ALT Alkaline Phosphatase Total Protein Albumin Beta-Hydroxybutyric Acd Nasal Screen MRSA (PCR) Negative Medications Administered Current Inpatient Medications Dextrose (Dextrose 50% 50 Ml Syringe) 25 - 50 ml IV UD PRN; Protocol PRN Reason: Hypoglycemia Protocol Stop: 02/13/20 01:14 Glucagon (Glucagon For Inj 1 Mg Vial) 1 mg SQ UD PRN; Protocol PRN Reason: Hypoglycemia Protocol Stop: 02/13/20 01:14 Glucose (Glucose 40% Gel 15 Gm Tube) 15 - 30 gm PO UD PRN; Protocol PRN Reason: Hypoglycemia Protocol Stop: 02/13/20 01:14 Glucose (Glucose 10 Tabs/Tube) 4 - 8 tabs PO UD PRN; Protocol PRN Reason: Hypoglycemia Protocol Stop: 02/13/20 01:14 Heparin Sodium (Porcine) (Heparin Sod 5,000 Unit/0.5 Ml Vial) 7,500 units SQ Q8 FOSTER Stop: 02/13/20 05:59 Last Admin: 01/15/20 04:13 Dose: 7,500 units Documented by: Dexamethasone Sodium Phosphate (6 mg/ Syringe) 1.5 mls @ 1 mls/min IV QAM FOSTER Stop: 01/22/20 09:02 Last Admin: 01/15/20 08:08 Dose: 1 mls/min Documented by: Levofloxacin/Dextrose (Levaquin/D5w) 750 mg in 150 mls @ 100 mls/hr IV Q48H FOSTER Stop: 01/20/20 17:59 Remdesivir 100 mg/ Sodium (Chloride) 250 mls @ 250 mls/hr IV Q24H FOSTER; Protocol Stop: 01/18/20 12:59 Last Admin: 01/15/20 12:41 Dose: 250 mls/hr Documented by: Dextrose/Sodium Chloride (D5w And 1/2nss) 1,000 mls @ 80 mls/hr IV .[id number] [facility] Stop: 02/14/20 10:29 Last Admin: 01/15/20 11:15 Dose: 80 mls/hr Documented by: Insulin Aspart (Insulin Aspart 100 Units/Ml 3 Ml Pen) 0 units SC Q4H [facility] Stop: 02/14/20 03:59 Last Admin: 01/15/20 11:55 Dose: 2 units Documented by: Miscellaneous (Carbohydrates For Hypoglycemia ) 15 - 30 gm PO UD PRN PRN Reason: Hypoglycemia Treatment Stop: 02/13/20 01:14 Miscellaneous Information (Pharmacy Glycemic Mgmt Consult) 1 ea N/A UD PRN PRN Reason: Consult Stop: 02/13/20 01:11 Morphine Sulfate (Morphine Sulfate 4 Mg/Ml 1 Ml Carp\Vial) 3 mg IV Q2H PRN PRN Reason: Dyspnea Stop: 01/28/20 14:55 Last Admin: 01/15/20 11:54 Dose: 3 mg Documented by: Sodium Chloride (Sodium Chloride 0.9% 10ml Flush) 30 ml IV Q24H FOSTER Stop: 01/18/20 12:01 Last Admin: 01/14/20 13:16 Dose: 30 ml Documented by: PG Care Time/CCT Total # of Minutes Spent Total Time Spent with Patient: Total time spent is greater than 50% in coordination of care (as documented) at patient's floor/unit and/or counseling patient: Coding Level of Care Code 78880 Subseq Hosp Care Lvl 3 Diagnoses Goals of care, counseling/discussion Z71.89 Acute respiratory failure with hypoxia J96.01 Type 2 diabetes mellitus with hyperosmolar hyperglycemic state (HHS) E11.00; E11.65 COVID-19 U07.1 Aspiration pneumonia J69.0 Pleural effusion, right J90 Sepsis associated hypotension A41.9; I95.9 Lactic acidosis E87.2 Chronic steroid use Paroxysmal SVT (supraventricular tachycardia) I47.1 Chronic ITP (idiopathic thrombocytopenia) D69.3 CLL (chronic lymphocytic leukemia) C91.10 Dementia F03.90 CKD (chronic kidney disease) stage 3, GFR 30-59 ml/min N18.30 Oral phase dysphagia R13.11 Stress incontinence N39.3 DVT prophylaxis Z29.9
[2020-01-15] MEDS: SODIUM CHLORIDE 0.9% 10ML FLUSH IV SCH (13:48)
[2020-01-15] MEDS: SODIUM CHLORIDE 0.9% 1000ML 1,000 ML IV SCH (14:50)
[2020-01-15] MEDS ORDERED: METOPROLOL TARTRATE 1 MG/ML VIAL IV STA (15:11)
[2020-01-15] MEDS ORDERED: levoFLOXacin/D5W 750 MG/150 ML BAG IV SCH (18:00)
[2020-01-15] MEDS: METOPROLOL TARTRATE 1 MG/ML VIAL IV SCH ×2 (19:20→23:53)
[2020-01-16] MEDS: SODIUM CHLORIDE 0.9% 1000ML 1,000 ML IV SCH (03:35)
[2020-01-16] MEDS: INSULIN ASPART 100 UNITS/ML 3 ML PEN SC SCH (04:04)
[2020-01-16] MEDS: HEPARIN SOD 5,000 UNIT/0.5 ML VIAL SQ SCH (05:36)
[2020-01-16] MEDS: METOPROLOL TARTRATE 1 MG/ML VIAL IV SCH (05:36)
[2020-01-16 07:31] LABS: BUN Creatinine Ratio 51.1 (10-20); Calcium 7.3 mg/dl (8.5-10.1); Creatinine Clr Calc Pharmacy 60.4 ml/min; Est GFR (African American) 83.8; Est GFR (Non-African American) 72.3; Magnesium 2.1 mg/dl (1.8-2.4); Potassium 5.6 mmol/L (3.5-5.1)
[2020-01-16] MEDS: MoRPHine SULFATE 4 MG/ML 1 ML CARP\\VIAL IV PRN ×2 (07:36→10:25)
[2020-01-16] MEDS ORDERED: INSULIN ASPART 100 UNITS/ML 3 ML PEN SC SCH (08:00)
[2020-01-16] MEDS ORDERED: STAT IV Infusion **Titration per Protocol STA (09:27)
[2020-01-16] MEDS: MoRPHine SULF/NSS 250 MG/250 ML BTL IV SCH (10:25)
[2020-01-16] MEDS: DEXAMETHASONE SOD PHOSPHATE 6 MG in SYRINGE 0 ML IV SCH (10:26)
--- NOTE | 2020-01-16 10:35 | Hospitalist Progress Note ---
Date of Service January 16, 2020 Assessment & Plan (1) Goals of care, counseling/discussion: talked with patient's son Lopez over the phone on 01/13 and 01/14 visited with son via Zoom on the iPad this morning at the bedside with patient, 01/15 discussed that patient is still requiring BIPAP, she is in respiratory failure, she is using accessory muscles Lopez wanted to know the patient's wishes since she was responding appropriately to questions asked the patient if she was uncomfortable, she squeezed her eyes shut tight to say yes asked the patient if she wanted to come off the BIPAP, with the understanding that she would pass away, she squeezed her eyes tight to say yes Lopez asked us to follow her wishes and take her off BIPAP Morphine drip ordered at 4mg/her, increase by 2mg every 10 minutes for comfort Ativan 1mg IV PRN for anxiety (2) Acute respiratory failure with hypoxia: Continuous BiPAP for nearly 72 hours, using accessory muscles (belly breathing), paradoxical breathing FiO2 up to 65 % and saturations > 90%, BIPAP 02/06 she would not do well with High Flow, needs the PEEP no intubation per son looks worse this morning, transitioned to comfort care, will remove BIPAP (3) Type 2 diabetes mellitus with hyperosmolar hyperglycemic state (HHS): 3L NSS given in ER. Elevated Na. Start 0.5NSS with KCl 40 meq @ 250ml/hr. Insulin IV drip HHS protocol with aim glucose 250-300 sugars well controlled this morning, off of D5W will change to comfort measures (4) COVID-19: Dexamethasone 6mg IV daily started son requesting Remdesivir, gave 200mg dose on 01/13 and then 100mg daily x on 01/14 and 01/15, no further doses with comfort as goal she was outside the window for plasma discussed that prognosis is very poor, still on BIPAP transition to comfort care (5) Aspiration pneumonia: Given very one sided suspect aspiration. will use Levaquin x 5 days no fever, WBC always elevated due to CLL stop Levaquin today (6) Pleural effusion, right: stable (7) Sepsis associated hypotension: Improved with 3L NSS. Start 0.5NSS with 40 meq KCl @ 250ml/hr. Likely 9- 10L deficit. treated with Levaquin Follow up blood and urine cultures - no growth Lactate down to 2.0 01/14 BP is preserved without needing pressors, son would not want central line or pressors (8) Lactic acidosis: down to 2.0 01/14 adequate volume resuscitation (9) Chronic steroid use: stop stress dose steroids, received 48 hours worth (10) Paroxysmal SVT (supraventricular tachycardia): no further SVT will stop the Amiodarone drip and observe since she is now stable having some sinus tachycardia today due to stress and pain and hypoxia using Lopressor 5mg IV q6 now use comfort measures (11) Chronic ITP (idiopathic thrombocytopenia): Chronic prednisone use. Stress dose steroids as above. plts are in 50's, stop Heparin as move to comfort only (12) CLL (chronic lymphocytic leukemia): On no specific treatment for this as an outpatient. WBC is 29 certainly makes her immune suppressed (13) Dementia: Medications on hold while NPO per son she has short term memory issues (14) CKD (chronic kidney disease) stage 3, GFR 30-59 ml/min: Surprisingly close to baseline. Granular casts in UA Cr stable at 0.78 and making clear urine via taylor (15) Oral phase dysphagia: Notable history of this. (16) Stress incontinence: Medications on hold while NPO (17) DVT prophylaxis: Heparin 7500 units SQ Q8H stop today Admission and Anticipated Discharge Date Admission Date: January 13, 2020 Subjective patient remains on BIPAP this morning, she is belly breathing, eyes closed she will wake up and she is oriented, responds to her name and answers questions appropriately Zoom meeting via iPad with her son and other family member as well as the RN talked at the bedside about almost 72 hours on the BIPAP asked the patient if she was uncomfortable and she responded yes by closing her eyes tight explained that the BIPAP was essential to help her breathe, that if we remove it she will likely pass away asked the patient if she wanted to take off the BIPAP understanding that she would pass away, she squeezed her eyes tight to say yes her son was able to witness this via the iPad and he asked to comply with her wishes and make her more comfortable explained that we would start her on a morphine drip, make sure she was comfortable and then take off the BIPAP changed her officially to comfort measures reviewed labs, K is still high, sugars are stable, HCO3 down a little to 18, ph os and mag normal slightly hypothermic this morning and the patient is requiring more FiO2 and remains on 02/06 settings on BIPAP stopped all medications except comfort Review of Systems Review of Systems: Unobtainable due to reduced consciousness Constitutional: patient admitted to being uncomfortable with the BIPAP mask Physical Exam Constitutional: well developed, well nourished and + frail appearing Neck: trachea midline, no thyromegaly Respiratory: + labored breathing (on BIPAP) and + uses accessory muscles Auscultation: + diminished lung sounds Cardiovascular: RRR, no murmur, no edema Gastrointestinal (Abdomen): normal bowel sounds, soft, nontender, no hepatosplenomegaly Musculoskeletal: Head/Neck/Chest: normocephalic, head atraumatic and neck supple Extremities: + abnormal strength; no clubbing and no petechiae Skin: no rashes, warm and dry Neurologic: CN's II-XI intact bilaterally, moves all extremities and + confused; no focal motor deficits Psychiatric: Orientation: oriented to person; + not alert, + not oriented to place and + not oriented to time Results & Data Results & Data ([facility]) Vital Signs (Past 12 Hours) Vital Signs Temp Pulse Pulse Resp BP BP Pulse Ox 01/16/20 07:55 122 H 17 86 L 01/16/20 07:43 36.6 C 131 H 18 104/76 89 L 01/16/20 03:25 36.6 C 116 H 20 106/64 94 01/16/20 02:56 110 H 26 H 94 01/16/20 00:24 112 H 24 93 01/15/20 23:53 109 H 137/70 01/15/20 23:52 109 H 137/70 01/15/20 23:12 35.7 C L 107 H 18 110/49 L 92 Laboratory Results Laboratory Results - last 24 hr 01/15/20 01/15/20 01/15/20 08:45 11:00 16:32 VBG pH Sodium Potassium Chloride Carbon Dioxide Anion Gap BUN Creatinine Est Cr Clr Drug Dosing Est GFR ( Amer) Est GFR (Non-Af Amer) BUN/Creatinine Ratio Glucose POC Glucose 213 H 218 H Calcium Phosphorus Magnesium Nasal Screen MRSA (PCR) Negative 01/15/20 01/15/20 01/16/20 19:22 23:54 04:00 VBG pH Sodium Potassium Chloride Carbon Dioxide Anion Gap BUN Creatinine Est Cr Clr Drug Dosing Est GFR ( Amer) Est GFR (Non-Af Amer) BUN/Creatinine Ratio Glucose POC Glucose 203 H 149 H 108 H Calcium Phosphorus Magnesium Nasal Screen MRSA (PCR) 01/16/20 01/16/20 01/16/20 06:45 06:45 07:41 VBG pH 7.41 Sodium 138 Potassium 5.6 H Chloride 115 H Carbon Dioxide 18 L Anion Gap 5.0 BUN 40 H Creatinine 0.78 Est Cr Clr Drug Dosing 60.4 Est GFR ( Amer) 83.8 Est GFR (Non-Af Amer) 72.3 BUN/Creatinine Ratio 51.1 H Glucose 105 H POC Glucose 106 H Calcium 7.3 L Phosphorus 3.0 Magnesium 2.1 Nasal Screen MRSA (PCR) Medications Administered Current Inpatient Medications Sodium Chloride (Nss 1000ml) 1,000 mls @ 80 mls/hr IV .[id number] [facility] Stop: 02/14/20 14:14 Last Admin: 01/16/20 03:35 Dose: 80 mls/hr Documented by: Morphine Sulfate (Morphine Sulf/Nss) 250 mg in 250 mls @ 1 mls/hr IV .Q96H [facility]; Protocol Stop: 01/30/20 09:29 Morphine Sulfate (Morphine Sulfate 4 Mg/Ml 1 Ml Carp\Vial) 4 mg IV Q2H PRN PRN Reason: Dyspnea Stop: 01/28/20 14:55 Last Admin: 01/16/20 07:36 Dose: 4 mg Documented by: Sodium Chloride (Sodium Chloride 0.9% 10ml Flush) 30 ml IV Q24H [facility] Stop: 01/18/20 12:01 Last Admin: 01/15/20 13:48 Dose: 30 ml Documented by: PG Care Time/CCT Total # of Minutes Spent Total Time Spent: 40 Total Time Spent with Patient: Total time spent is greater than 50% in coordi nation of care (as documented) at patient's floor/unit and/or counseling patient: Coding Level of Care Code 53751 Subseq Hosp Care Lvl 3 Diagnoses Goals of care, counseling/discussion Z71.89 Acute respiratory failure with hypoxia J96.01 Type 2 diabetes mellitus with hyperosmolar hyperglycemic state (HHS) E11.00; E11.65 COVID-19 U07.1 Aspiration pneumonia J69.0 Pleural effusion, right J90 Sepsis associated hypotension A41.9; I95.9 Lactic acidosis E87.2 Chronic steroid use Paroxysmal SVT (supraventricular tachycardia) I47.1 Chronic ITP (idiopathic thrombocytopenia) D69.3 CLL (chronic lymphocytic leukemia) C91.10 Dementia F03.90 CKD (chronic kidney disease) stage 3, GFR 30-59 ml/min N18.30 Oral phase dysphagia R13.11 Stress incontinence N39.3 DVT prophylaxis Z29.9
[2020-01-16] MEDS: SODIUM CHLORIDE 0.9% 10ML FLUSH IV SCH (13:06)
[2020-01-16] MEDS ORDERED: LORazepam 1 MG/2 ML VIAL IV PRN (13:09)
[2020-01-16] MEDS ORDERED: SCOPOLAMINE 1.5 MG TDSY TD SCH (14:00)
[2020-01-16] MEDS: CHECK SCOPOLAMINE PATCH PLACEMENT SCH ×2 (15:04→23:23)
[2020-01-17 06:36] LABS: BUN Creatinine Ratio 39.6 (10-20); Calcium 7.9 mg/dl (8.5-10.1); Creatinine Clr Calc Pharmacy 41.3 ml/min; Est GFR (Non-African American) 45.7; Magnesium 2.2 mg/dl (1.8-2.4); Phosphorus 5.5 mg/dl (2.5-4.9)
[2020-01-17] MEDS: CHECK SCOPOLAMINE PATCH PLACEMENT SCH ×3 (07:21→23:34)
--- NOTE | 2020-01-17 08:00 | Hospitalist Progress Note ---
Date of Service January 17, 2020 Assessment & Plan (1) Goals of care, counseling/discussion: Comfort measures Dr De Luna talked with patient's son Lopez over the phone on 01/13 and 01/14 visited with son via Zoom on the iPad this morning at the bedside with patient, 01/15 discussed that patient is still requiring BIPAP, she is in respiratory failure, she is using accessory muscles The remainder was a summary of Dr De Luna conversation as documented by him Lopez wanted to know the patient's wishes since she was responding appropriately to questions asked the patient if she was uncomfortable, she squeezed her eyes shut tight to say yes asked the patient if she wanted to come off the BIPAP, with the understanding that she would pass away, she squeezed her eyes tight to say yes Lopez asked us to follow her wishes and take her off BIPAP Morphine drip ordered at 4mg/her, increase by 2mg every 10 minutes for comfort Ativan 1mg IV PRN for anxiety (2) Acute respiratory failure with hypoxia: no intubation per son transitioned to comfort care on nasal canulae (3) Type 2 diabetes mellitus with hyperosmolar hyperglycemic state (HHS): 3L NSS given in ER. Elevated Na. initially treated now now further labs due to comfort measures (4) COVID-19: Dexamethasone 6mg and Remdesivir, gave 200mg dose on 01/13 and then 100mg daily x on 01/14 and 01/15, no further doses with comfort as goal transition to comfort care (5) Aspiration pneumonia: Given very one sided suspect aspiration. initially given levaquin no fever, WBC always elevated due to CLL (6) Pleural effusion, right: stable (7) Sepsis associated hypotension: Improved with 3L NSS. Start 0.5NSS with 40 meq KCl @ 250ml/hr. Likely 9- 10L deficit. initially treated with Levaquin blood and urine cultures - no growth Lactate down (8) Lactic acidosis: down to 2.0 01/14 adequate volume resuscitation (9) Chronic steroid use: stop stress dose steroids, received 48 hours worth (10) Paroxysmal SVT (supraventricular tachycardia): no further SVT did stop the Amiodarone drip especially since now comfort, is tachycardic (11) Chronic ITP (idiopathic thrombocytopenia): Chronic prednisone use. Stress dose steroids as above. plts are in 50's, stopped Heparin as move to comfort only (12) CLL (chronic lymphocytic leukemia): On no specific treatment for this as an outpatient. wbc elevated on presentation (13) Dementia: Medications on hold while NPO per son she has short term memory issues (14) CKD (chronic kidney disease) stage 3, GFR 30-59 ml/min: Surprisingly close to baseline. Granular casts in UA Cr stable at 0.78 and making clear urine via taylor (15) Oral phase dysphagia: Notable history of this. (16) Stress incontinence: Medications on hold while NPO (17) DVT prophylaxis: stopped with comfort status Admission and Anticipated Discharge Date Admission Date: January 13, 2020 Subjective pt is on comfort care measures, morphing gtt, does move and flutter her eyes to tactile stimulation, seems comfortable otherwise Review of Systems Review of Systems: Unobtainable due to reduced consciousness Physical Exam Physical Exam: The patient appeared comfortable Vital signs as documented. Lungs are diminished, shallow Cardiac exam, tachycardic Abdominal exam reveals hypoacitve bowel sounds, soft Extremities are 1+ edematous PG Care Time/CCT Total # of Minutes Spent Total Time Spent with Patient: Total time spent is greater than 50% in coordination of care (as documented) at patient's floor/unit and/or counseling patient: Coding Level of Care Code 60027 Subseq Hosp Care Lvl 2 Diagnoses Goals of care, counseling/discussion Z71.89 Acute respiratory failure with hypoxia J96.01 Type 2 diabetes mellitus with hyperosmolar hyperglycemic state (HHS) E11.00; E11.65 COVID-19 U07.1 Aspiration pneumonia J69.0 Pleural effusion, right J90 Sepsis associated hypotension A41.9; I95.9 Lactic acidosis E87.2 Chronic steroid use Paroxysmal SVT (supraventricular tachycardia) I47.1 Chronic ITP (idiopathic thrombocytopenia) D69.3 CLL (chronic lymphocytic leukemia) C91.10 Dementia F03.90 CKD (chronic kidney disease) stage 3, GFR 30-59 ml/min N18.30 Oral phase dysphagia R13.11 Stress incontinence N39.3 DVT prophylaxis Z29.9
[2020-01-17] MEDS: MoRPHine SULF/NSS 250 MG/250 ML BTL IV SCH (17:48)
[2020-01-18] MEDS: CHECK SCOPOLAMINE PATCH PLACEMENT SCH (10:42)
--- NOTE | 2020-01-18 14:43 | Discharge Summary ---
Date of Service January 18, 2020 Admission HPI Per Admitting Provider Emma Dasilva is a 79-year-old female who presents to the ER by EMS from [facility] with acute hypoxic respiratory failure with O2 sats 82% on 6 L nasal cannula. Unable to take history from patient due to unresponsiveness therefore history taken from provided notes from [facility]. She tested Covid positive on 01/03/2020. The swab was performed due to surveillance. Since then she has been getting progressively worse cough and hypoxia requiring O2 via oxygen mask. She has significant comorbidities including CLL/ITP on chronic steroids, type 2 diabetes mellitus, peripheral artery disease, dementia. Discussed with her son Oksana over the phone (number: [phone]) who confirmed DNR/DNI status. He will be coming in at 11pm to discuss ongoing care. In the ER CXR concerning for aspiration pneumonia and suspected right pleural effusion - started on cefepime and levquin. UA concerning for infection. She was having intermittent episodes of SVT treated with IV amiodarone. Glucose markedly elevated at 662 - 3L NSS bolus given and started on insulin IV drip. Principal Diagnosis covid 19 pneumonia Discharge Exam pt was without spontaneous heart tones or respiration and pronounced on 01/18/20 at 11 am, son oksana was notified Discharge Data Allergies Allergy/AdvReac Type Severity Reaction Status Date / Time chicken derived Allergy Unknown . Unverified 01/13/20 18:11 Milk Containing Products Allergy Unknown Unverified 01/13/20 18:24 sheep derived (ovine) AdvReac Unknown WOOL Unverified 01/13/20 18:11 Consultations 01/13/20 17:56 ED Decision to Admit Stat Hospital Course (1) Goals of care, counseling/discussion: Comfort measures eventually had pt on 01/18/20 at 11 am from covid 19 infection Patient's sons Oksana was informed this was expected that she was unresponsive for the last 2 days Earlier in the hospital stay the below listed problems were addressed Dr De Luna talked with patient's son Oksana over the phone on 01/13 and 01/14 visited with son via Zoom on the iPad this morning at the bedside with patient, 01/15 discussed that patient is still requiring BIPAP, she is in respiratory failure, she is using accessory muscles The remainder was a summary of Dr De Luna conversation as documented by him Oksana wanted to know the patient's wishes since she was responding appropriately to questions asked the patient if she was uncomfortable, she squeezed her eyes shut tight to say yes asked the patient if she wanted to come off the BIPAP, with the understanding that she would pass away, she squeezed her eyes tight to say yes Oksana asked us to follow her wishes and take her off BIPAP (2) Acute respiratory failure with hypoxia: no intubation per son transitioned to comfort care (3) Type 2 diabetes mellitus with hyperosmolar hyperglycemic state (HHS): 3L NSS given in ER. Elevated Na. initially treated now now further labs due to comfort measures (4) COVID-19: Dexamethasone 6mg and Remdesivir, gave 200mg dose on 01/13 and then 100mg daily x on 01/14 and 01/15, no further doses with comfort as goal transition to comfort care (5) Aspiration pneumonia: Given very one sided suspect aspiration pneumonia or pneumonitis. initially given levaquin no fever, WBC always elevated due to CLL (6) Pleural effusion, right: stable (7) Sepsis associated hypotension: Improved with 3L NSS. Start 0.5NSS with 40 meq KCl @ 250ml/hr. Likely 9- 10L deficit. initially treated with Levaquin blood and urine cultures - no growth Lactate down (8) Lactic acidosis: down to 2.0 01/14 adequate volume resuscitation (9) Chronic steroid use: stop stress dose steroids, received 48 hours worth (10) Paroxysmal SVT (supraventricular tachycardia): did stop the Amiodarone drip especially since now comfort, is tachycardic (11) Chronic ITP (idiopathic thrombocytopenia): Chronic prednisone use. Stress dose steroids as above. plts are in 50's, stopped Heparin as move to comfort only (12) CLL (chronic lymphocytic leukemia): On no specific treatment for this as an outpatient. wbc elevated on presentation (13) Dementia: Medications on hold while NPO per son she has short term memory issues (14) CKD (chronic kidney disease) stage 3, GFR 30-59 ml/min: Surprisingly close to baseline. Granular casts in UA Cr stable at 0.78 and making clear urine via taylor (15) Oral phase dysphagia: Notable history of this. (16) Stress incontinence: Medications on hold while NPO (17) DVT prophylaxis: stopped with comfort status (18) : Total Time Total Time Spent Total Time Spent (In Minutes): It required greater than 30 minutes to prepare this patient for discharge Discharge Plan Discharge Items Reason For Visit: ACUTE HYPOXIA RESP FAILURE,COVID 19,ASPIRATION PNA Follow-up/Referrals: Iva Law [Primary Care Provider] - Medications and DC Order Prescriptions: No Action multivitamin [Daily-Heather] Tablet 1 tab PO DAILY RF: 0 acetaminophen 325 mg Tablet 325 mg PO QID PRN (Reason: Pain) RF: 0 prednisone 10 mg tablet 10 mg PO DAILY RF: 0 donepezil 10 mg tablet 10 mg PO HS RF: 0 simvastatin 10 mg tablet 10 mg PO DAILY RF: 0 magnesium hydroxide [Milk of Magnesia] 400 mg/5 mL Suspension 400 mg PO DAILY PRN (Reason: BOWEL ISSUE) RF: 0 amlodipine 10 mg Tablet 10 mg PO HS RF: 0 bisacodyl [Dulcolax (bisacodyl)] 10 mg Suppository 10 mg TX DIRECTED PRN (Reason: BOWEL ISSUE) RF: 0 pantoprazole 40 mg tablet,delayed release (DR/EC) 40 mg PO DAILY RF: 0 losartan 25 mg tablet 25 mg PO BID RF: 0 atenolol 50 mg Tablet 50 mg PO BID RF: 0 insulin aspart U-100 [Novolog Flexpen U-100 Insulin] 100 unit/mL (3 mL) Insulin Pen 0 unit SUBCUT DIRECTED RF: 0 venlafaxine 37.5 mg tablet extended release 24hr 37.5 mg PO TID RF: 0 Morphine Sulfate 10 mg PO Q1H RF: 0 Admission Data Admit Date/Time: 01/13/20 19:17 Attending Provider: Calixto Shea Admit Provider: Soto Blevins Primary Care Provider: Iva Law Other Providers: Soto Blevins Other Interventions: Discharge Summary Assessment (RN) Last Done: 01/18/20 14:18 Coding Level of Care Code D/C Day Management >30 mins Diagnoses Goals of care, counseling/discussion Z71.89 Acute respiratory failure with hypoxia J96.01 Type 2 diabetes mellitus with hyperosmolar hyperglycemic state (HHS) E11.00; E11.65 COVID-19 U07.1 Aspiration pneumonia J69.0 Pleural effusion, right J90 Sepsis associated hypotension A41.9; I95.9 Lactic acidosis E87.2 Chronic steroid use Paroxysmal SVT (supraventricular tachycardia) I47.1 Chronic ITP (idiopathic thrombocytopenia) D69.3 CLL (chronic lymphocytic leukemia) C91.10 Dementia F03.90 CKD (chronic kidney disease) stage 3, GFR 30-59 ml/min N18.30 Oral phase dysphagia R13.11 Stress incontinence N39.3 DVT prophylaxis Z29.9 R99
== END 2020-01-18 14:19 | disposition expired | DRG 871 ==
LOC: ED 15:50 → SUATTDRO 19:17 → 2S 19:17 → 2E 01-14 16:14